=== PATIENT | male | born 1940 | race Caucasian/White ===

== ENCOUNTER 2019-06-19 12:13 | Outpatient (CLI) | payer MEDICARE, SELFPAY ==
--- NOTE | ~2019-06-19 | XR_ITS ---
EXAMINATION: XR chest 2V DATE: 06/19/2019 12:49 INDICATION: Shortness of breath TECHNIQUE: PA and lateral views of the chest are obtained. COMPARISON: 05/08/2019 FINDINGS: The lungs are hyperinflated. There is continued interval improvement in bilateral airspace opacities. There is no pleural effusion or pneumothorax. The cardiomediastinal silhouette is normal. There is moderate thoracic spondylosis. A triple lead cardiac pacemaker of the left chest wall ends w ith leads in expected locations. Surgical clips are noted in the left neck. There is a healed fractur e of the anterior right seventh rib. IMPRESSION: 1. Continued interval improvement in bilateral airspace opacities, consistent with resolving pneumoni a. Reviewed, dictated and finalized at location A. UETTE MOLDER IMPRESSION: 1. Continued interval improvement in bilateral airspace opacities, consistent w ith resolving pneumonia.
== END 2019-06-19 12:14 | disposition home or self-care (01) ==
PROVIDERS: PCP Family Medicine; Visit Provider Nurse Practitioner Family
DX: R06.02 Shortness of breath (principal); R91.8 Other nonspecific abnormal finding of lung field
CPT/HCPCS: 71046

== ENCOUNTER 2020-05-01 22:18 | Inpatient (IN) | payer MEDICARE, SELFPAY ==
--- NOTE | ~2020-05-01 | XR_ITS ---
EXAMINATION: XR knee LT 3V EXAM DATE: 05/01/2020 23:01 INDICATION: Initial encounter following injury, with pain of the left knee. TECHNIQUE: Three projections of the left knee. There is no prior study for comparison. FINDINGS: No evidence osteochondral defect or joint body in the left knee joint. There is mild prim jeevan osteoarthritis. No joint effusion. There are no acute fractures or dislocations identified. Ther e is no subcutaneous gas. There are arterial calcifications, arteriosclerosis. There are no radiop aque foreign bodies. IMPRESSION: 1. XR knee LT 3V exam without acute osseous findings. Reviewed, dictated and finalized at location A. TER TOOL DESIGN
--- NOTE | ~2020-05-01 | XR_ITS ---
EXAMINATION: XR chest 1V EXAM DATE: 05/01/2020 23:00 INDICATION: Injury, right hip and left knee pain. Initial encounter. COPD. TECHNIQUE: Frontal and lateral projections of the chest obtained and reviewed. Comparison is made to prior examination from 06/19/2019. FINDINGS: There is a triple lead lead pacemaker/AICD seen with leads projecting over the expected loc ations of the right atrial appendage and right ventricle. Scattered regions of scarring unchanged com pared to prior study. Moderate chronic hyperinflation. No pneumothorax or pleural effusion. Cardiomed iastinal silhouette is normal. IMPRESSION: 1. Scattered chronic scarring. 2. Hyperinflation. Reviewed, dictated and finalized at location A. S ROUTE DRIVER
--- NOTE | ~2020-05-01 | XR_ITS ---
EXAMINATION: XR hip RT 2V w AP pelvis EXAM DATE: 05/01/2020 22:59 INDICATION: Initial encounter following injury, with pain of the right hip. TECHNIQUE: Right hip frontal, crosstable lateral projections for interpretation. Frontal projection p jose. There is no prior study for comparison. FINDINGS: There is acute closed posttraumatic right hip intertrochanteric fracture with up to about a centimeter gap laterally. No hip dislocation or significant angulation. There is moderate symmetric bilateral hip primary osteoarthritis. Advanced lower lumbar facet spondylosis. Pelvis appears intact. IMPRESSION: Acute right hip intertrochanteric fracture. Reviewed, dictated and finalized at location A. ER POUND NET OR TRAP
[2020-05-01 22:26] VITALS: BP 156/78; PULSE 87; RESP 20; TEMP 36.8; O2SAT 99
--- NOTE | 2020-05-01 22:36 | ED.LOWEXIN ---
HPI - Extremity Injury (Lower) General Chief Complaint: Extremity Injury, Lower Stated Complaint: leg pain after fall Time Seen by Provider: 05/01/20 22:23 History of Present Illness HPI Narrative: 79 yo male presents to the ED after a fall. He reports that he fell after stepping onto uneven ground. He landed on the right side and has pain in the right hip and thigh. He was not able to stand or bear weight after the fall. Pain is only mild at rest. He did not hit his head or sustain any other injuries. Related Data Home Medications Medication Instructions Recorded Confirmed Calcium 600 + D(3) 600 cap PO QAM 04/06/19 04/06/19 acetaminophen [Tylenol Extra 500 mg PO QAM AND QPM 04/06/19 04/06/19 Strength] folic acid 1 mg PO QAM 04/06/19 04/06/19 methotrexate sodium 2.5 mg PO WEEKLY 04/06/19 04/06/19 aspirin 81 mg tablet,delayed 81 mg PO DAILY 04/24/19 release zklzvqqg-fodexgxe-cobpz acid 400 tablet PO 04/24/19 mcg-vit K 20 mcg-lycop 300 mcg tablet Allergies Allergy/AdvReac Type Severity Reaction Status Date / Time propranolol Allergy Unknown Unknown Verified 07/01/19 14:02 Review of Systems Review of Systems: All systems reviewed & are unremarkable except as noted in HPI and below Constitutional: Constitutional: Denies fever(s) and Denies weakness Cardiovascular: Cardiovascular: Denies chest pain Respiratory: Respiratory: Denies dyspnea Gastrointestinal: Gastrointestinal: Denies abdominal pain, Denies nausea and Denies vomiting Neurologic: Denies numbness and Denies weakness [facility] Past Medical History Medical History (Updated 05/01/20 @ 23:12 by Salvador Marcano MD) Abdominal aortic aneurysm Status post repair. Benign essential tremor Benign prostatic hyperplasia Carotid artery disease Status post left carotid endarterectomy in December 2017. Chronic anemia With history of blood transfusion. COPD (chronic obstructive pulmonary disease) PFTs in 2018 demonstrated severe disease. History of DVT of lower extremity Right popliteal DVT diagnosed March 18, 2018. History of kidney stones History of pulmonary embolism Right upper lobe PE diagnosed March 17, 2018. Hyperlipidemia Hypertension Left rib fracture Sustained in a fall several weeks ago. Obstructive sleep apnea Parkinson's disease Pulmonary fibrosis Rheumatoid arthritis On methotrexate. Tobacco abuse Surgical History Surgical History History of cholecystectomy History of left-sided carotid endarterectomy Left side in December 2017. Status cardiac pacemaker Status post abdominal aortic aneurysm repair Family History Family History Mother Family history of heart disease in male family member before age 55 Family history of coronary artery disease, Onset Age: 57 Sibling Patient's brother is Father Patient's father is , Onset Age: 75 Family history unknown Social History Social History Social History: Mr. Waldron is and lives with his , Amena, in [place]. He designates his and son Dagoberto as his surrogate decision makers and he wishes to be a full code. 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 He continues to smoke about 5 cigarettes per day. He denies alcohol and drug abuse. Smoking packs per day: 0.5 Smoking cigarettes per day: 10.0 Years smoked: 60 Smoking pack-years: 30.00 Smoking status: Current every day smoker Tobacco type: cigarettes Alcohol intake: never Substance use: never Gender identity (if verbalized by the patient): Male Spiritual care concerns: No Agree to blood products: Yes Exam Const: General: no acute distress and alert Nutritional Appearance: well nourished Orientation/consciousness: patient oriented x3
[2020-05-01 22:45] LABS: Basophils Absolute Auto 0.1 K/mm3 (0.0-0.1); Basophils Percent Auto 0.5 % (0.2-1.2); Eosinophils Absolute Auto 0.2 K/mm3 (0-0.3); Hemoglobin 14.4 g/dL (14.0-18.0); Immature Granulocyte Absolute 0.06 K/mm3 (0.00-0.031); Immature Granulocyte Percent A 0.5 % (0-0.5); Lymphocytes Absolute Auto 1.33 K/mm3 (0.9-3.2); Mean Corpuscular HGB Conc 33.5 g/dl (32-36); Mean Corpuscular Hemoglobin 32.7 pg (26-34); Mean Corpuscular Volume 97.7 fl (80-100); Monocytes Absolute Auto 0.9 K/mm3 (0.1-0.6); Monocytes Percent Auto 8.4 % (2.6-8.5); Neutrophils Absolute Auto 8.5 K/mm3 (1.3-6.7); Neutrophils Percent Auto 76.6 % (45.5-73.1); Platelet Count Result 225 k/mm3 (150-375); Red Cell Distribution Width 16.6 % (11.5-14.5); White Blood Count 11.1 K/mm3 (4.5-10.0)
[2020-05-01 22:55] LABS: INR 1.1; Prothrombin Time 14.4 Seconds (11.1-14.7)
[2020-05-01 22:56] LABS: Partial Thromboplastin Time 28.1 SECONDS (22.3-36.8)
[2020-05-01 23:02] LABS: Alanine Aminotransferase 17 U/L (4-50); Albumin Level 3.6 g/dL (3.5-5.1); Alkaline Phosphatase 107 U/L (38-126); Anion Gap 8 mmol/L (8-16); Aspartate Amino Transferase 31 U/L (17-59); Bilirubin,Total 0.5 mg/dL (0.2-1.3); Blood Urea Nitrogen 8 mg/dL (9-20); Calcium 8.8 mg/dL (8.4-10.2); Carbon Dioxide 27 mmol/L (22-30); Chloride 103 mmol/L (98-107); Estimated CRCL calculation 83 ml/min; Estimated Glomerular Filt Rate > 60; Glucose 117 mg/dL (75-110); Potassium 4.3 mmol/L (3.4-5.0); Sodium 138 mmol/L (137-145)
--- NOTE | 2020-05-01 23:06 | PM.IMHP ---
H&P: HPI History of Present Illness Date/Time: 05/01/20 23:06 Chief Complaint: Right hip pain, mechanical fall Narrative: Jorge Waldron is a 79 year old male with past medical history of nonischemic cardiomyopathy, biventricular pacemaker, BT/PVCs status post ablation x2, TIA with left carotid artery stenosis status post carotid enterectomy, intrarenal AAA, tobacco abuse, emphysema, hypertension, obstructive sleep apnea on CPAP presents to the ED with complaints of right hip pain. In mechanical fall today when going up staircase. He did not have any syncopal symptoms, no seizures, no headache or lightheadedness, no prodrome, no aura. He did fall couple weeks ago left knee pain with bruise. He otherwise in good health denies fevers chills nausea vomiting or diarrhea. He has a chronic tremor in his left upper extremity. He still smokes half pack per day. He lives with his and a son is nearby to help out with needed. Uses a rolling walker to get around. In the ED: Hip x-rays consistent with right intratrochanteric hip fracture. Dr. Beavers orthopedic surgeon was consulted for likely hip replacement on Sunday. Vitals stable and labs stable. Patient admitted to medical floor for right hip fracture. Review of Systems Review of Systems: Narrative: Constitutional: No Fever, No Chills, No Night Sweats, No Fatigue, No Malaise ENT/Mouth: No Hearing Changes, No Ear Pain, No Nasal Congestion, No Sinus Pain, No Hoarseness, No sore throat, No Rhinorrhea, No Swallowing Difficulty Eyes: No Eye Pain, No Redness, No Vision Changes Cardiovascular: No Chest Pain, No Palpitations, No Dyspnea on Exertion, No Orthopnea, No Claudication, No Edema Respiratory: No Cough, No Sputum, No Wheezing, No Shortness of Breath Gastrointestinal: No Nausea, No Vomiting, No Diarrhea, No Constipation, No Abdominal Pain, No Heartburn, No Hematochezia, No Melena Genitourinary: No Dysuria, No Urinary Frequency, No Hematuria, No Urinary Incontinence, No Urgency Musculoskeletal: Right hip pain without sciatica or radiculopathy. Skin: No Skin Lesions, No Pruritis, No Hair Changes Neuro: No Weakness, No Numbness, No Paresthesias, No Loss of Consciousness, No Syncope, No Dizziness, No Headache Psych: No Anxiety/Panic, No Depression, No Insomnia Heme: No Bruising, No Bleeding Lymph: No Adenopathy Endocrine: No Polyuria, No Polydipsia, No Temperature Intolerance PMF Past Medical History Medical History Abdominal aortic aneurysm Status post repair. Benign essential tremor Benign prostatic hyperplasia Carotid artery disease Status post left carotid endarterectomy in December 2017. Chronic anemia With history of blood transfusion. COPD (chronic obstructive pulmonary disease) PFTs in 2018 demonstrated severe disease. History of DVT of lower extremity Right popliteal DVT diagnosed March 18, 2018. History of kidney stones History of pulmonary embolism Right upper lobe PE diagnosed March 17, 2018. Hyperlipidemia Hypertension Left rib fracture Sustained in a fall several weeks ago. Obstructive sleep apnea Parkinson's disease Pulmonary fibrosis Rheumatoid arthritis On methotrexate. Tobacco abuse Surgical History Surgical History History of cholecystectomy History of left-sided carotid endarterectomy Left side in December 2017. Status cardiac pacemaker Status post abdominal aortic aneurysm repair Family History Family History Mother Family history of heart disease in male family member before age 55 Family history of coronary artery disease, Onset Age: 57 Sibling Patient's brother is Father Patient's father is , Onset Age: 75 Family history unknown Social History Social History (Reviewed 05/01/20 @ 23:50 by José Antonio Schrader
[2020-05-01 23:37] VITALS: BP 142/79; PULSE 89; RESP 16; O2SAT 95
[2020-05-02] VITALS: BP 118/72; PULSE 96; RESP 16; TEMP 36.2; O2SAT 97; BMI 21.7
[2020-05-02] MEDS: MORPHINE SULFATE (*CRX) 4 MG/ML INJ 2 MG IV PUSH (00:49)
[2020-05-02] MEDS: LEVOTHYROXINE SODIUM 25 MCG TABLET PO (05:56)
[2020-05-02 06:00] VITALS: BP 121/84; PULSE 85; RESP 16; TEMP 36.6; O2SAT 94
[2020-05-02] MEDS: ACETAMINOPHEN 500 MG TABLET PO ×2 (09:44→17:14)
[2020-05-02] MEDS: ASPIRIN 81 MG ENTERIC TABLET PO (09:44)
[2020-05-02] MEDS: THERAPEUTIC MULTIVITAMINS/MINERALS TAB (*BKC) 1 TABLET PO (09:45)
[2020-05-02] MEDS: FOLIC ACID 1 MG TABLET PO (09:45)
[2020-05-02] MEDS: FLUTICASONE/SALMETEROL 115-21 MCG INHALER 1 PUFF 2 PUFF INHALATION ×2 (09:57→21:40)
--- NOTE | 2020-05-02 10:00 | PM.CNOR ---
Assessment and Plan Assessment and plan (1) Closed intertrochanteric fracture: Qualifiers: Encounter type: initial encounter Fracture alignment: displaced Laterality: right Qualified Code(s): S72.141A - Displaced intertrochanteric fracture of right femur, initial encounter for closed fracture Code(s): S72.143A - Displaced intertrochanteric fracture of unspecified femur, initial encounter for closed fracture Status: Acute Assessment and Plan: Mildly displaced intertrochanteric fracture. Amenable to ORIF with trochanteric nail. Discussed the risks, benefits, and alternatives with the patient. He expresses understanding and wishes to proceed. Care complicated by multiple medical comorbidities. Significantly increased surgical risk. Anticipate 3-6 weeks retirement/ rehab prior to home discharge. Overall good outcome anticipated. History of Present Illness HPI Consult date: 05/02/20 Chief complaint: hip fracture Narrative: Patient complains of acute hip pain. Fell from standing height. Admitted through the emergency room for definitive managmenet. No previous hip pain. Comfortable at rest. No numbness, tingling, or other associated symptoms. Review of Systems Review of Systems: Narrative: Denies loss of consciousness. All systems reviewed & are unremarkable except as noted in HPI and below PMFSH Past Medical History Medical History Abdominal aortic aneurysm Status post repair. Benign essential tremor Benign prostatic hyperplasia Carotid artery disease Status post left carotid endarterectomy in December 2017. Chronic anemia With history of blood transfusion. COPD (chronic obstructive pulmonary disease) PFTs in 2018 demonstrated severe disease. History of DVT of lower extremity Right popliteal DVT diagnosed March 18, 2018. History of kidney stones History of pulmonary embolism Right upper lobe PE diagnosed March 17, 2018. Hyperlipidemia Left rib fracture Sustained in a fall several weeks ago. Obstructive sleep apnea Parkinson's disease Pulmonary fibrosis Rheumatoid arthritis On methotrexate. Tobacco abuse Surgical History Surgical History History of cholecystectomy History of left-sided carotid endarterectomy Left side in December 2017. Status cardiac pacemaker Status post abdominal aortic aneurysm repair Family History Family History Mother Family history of heart disease in male family member before age 55 Family history of coronary artery disease, Onset Age: 57 Sibling Patient's brother is Father Patient's father is , Onset Age: 75 Family history unknown Social History Social History Social History: Mr. Waldron is and lives with his , Amena, in [place]. He designates his and son Dagoberto as his surrogate decision makers and he wishes to be a full code. 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 He continues to smoke about 5 cigarettes per day. He denies alcohol and drug abuse. Smoking packs per day: 0.5 Smoking cigarettes per day: 10.0 Years smoked: 60 Smoking pack-years: 30.00 Smoking status: Current every day smoker Tobacco type: cigarettes Alcohol intake: never Substance use: never Substance use type: does not use Gender identity (if verbalized by the patient): Male Spiritual care concerns: No Agree to blood products: Yes Meds Home Medications and Allergies Home Medications Medication Instructions Recorded Confirmed Type Calcium 600 + D(3) 600 cap PO QAM 04/06/19 05/02/20 History acetaminophen [Tylenol Extra 500 mg PO QAM AND QPM 04/06/19 05/02/20 History Strength] folic acid 1 mg PO QAM 04/06/19 12
--- NOTE | 2020-05-02 10:16 | PM.IMPN ---
Progress Note: A&P Assessment and Plan (1) Closed intertrochanteric fracture: Qualifiers: Encounter type: initial encounter Fracture alignment: displaced Laterality: right Qualified Code(s): S72.141A - Displaced intertrochanteric fracture of right femur, initial encounter for closed fracture Code(s): S72.143A - Displaced intertrochanteric fracture of unspecified femur, initial encounter for closed fracture Status: Acute Assessment and Plan: Right hip pain with x-ray consistent with right intratrochanteric femur fracture after mechanical fall -Dr. Beavers consulted for surgery which is planned for Sunday -pain is well controlled right now. Continue scheduled Tylenol and p.r.n. narcotics -no sign of blood loss or nerve damage (2) Fall: Qualifiers: Encounter type: initial encounter Qualified Code(s): W19.XXXA - Unspecified fall, initial encounter Code(s): W19.XXXA - Unspecified fall, initial encounter Status: Acute Assessment and Plan: Patient had a mechanical fall on staircase when misplacing his foot. - He denies loss of consciousness or dizziness or syncope or seizure activity or prodrome. -PT and OT will be ordered after surgery (3) COPD (chronic obstructive pulmonary disease): Qualifiers: COPD type: unspecified COPD Qualified Code(s): J44.9 - Chronic obstructive pulmonary disease, unspecified Code(s): J44.9 - Chronic obstructive pulmonary disease, unspecified Status: Acute Assessment and Plan: Chronic -PFTs in the past showed severe disease -chest x-ray stable which showed chronic starting and hyperinflation -continue Spiriva and Advair (4) Rheumatoid arthritis: Qualifiers: Rheumatoid arthritis location: multiple sites Rheumatoid factor presence: unspecified presence Qualified Code(s): M06.9 - Rheumatoid arthritis, unspecified Code(s): M06.9 - Rheumatoid arthritis, unspecified Status: Acute Assessment and Plan: Patient is on methotrexate -will hold this in light of surgery (5) Parkinson's disease: Code(s): G20 - Parkinson's disease Status: Acute Assessment and Plan: Patient states he has been diagnosed with this but denies taking any medications for this Additional Plan -BPH: Flomax -hypothyroidism: Levothyroxine -hyperlipidemia, left-sided carotid disease status post carotid enterectomy: Atorvastatin, aspirin -AAA repair without rupture -tobacco abuse: Half a pack per day, not interested in cessation, provided counseling 5 minutes. -sick sinus syndrome status post biventricular cardiac pacemaker -obstructive sleep apnea on CPAP Time Spent With Patient Time with patient: 25 - 35 minutes Subjective Date/time seen: 05/02/20 10:16 Interval history: Pt is a 79-year-old male who fell walking down his steps and broke his right hip. Patient was seen today and doing relatively well. He has mild pain is 3/10 in the right hip. He denies numbness, tingling, chest pain, fevers, cough, nausea or vomiting. His last bowel movement was yesterday. He has no complaints today Review of Systems Review of Systems: All systems reviewed & are unremarkable except as noted in HPI and below Exam Narrative: Exam Narrative: General: Well developed well nourished patient in NAD HEENT: normocephalic Neck: supple Neuro: Alert and oriented x4 CV:RRR, pacemaker to left chest Resp:CTA, no wheezing or rhonchi Abd: Soft, non distended. No pain to palpation. Positive bowel sounds Extremities: Right leg with pain to the right hip. Pulses, sensation and movement intact. Left leg without erythema, edema or pain Objective Data Vital Signs Vital Signs: Vital Signs - 24 hr 05/01/20 22:26 05/01/20 23:37 05/02/20 00:00 Temperature 98.2 F 97.1 F L Pulse Rate 87 89 96 Respiratory Rate 20 16 16 Blood Pressure 156/78 H 142/79 H 118/72 Pulse Oxim
[2020-05-02 14:00] VITALS: BP 121/62; PULSE 79; RESP 18; TEMP 36.7; O2SAT 95
--- NOTE | 2020-05-02 14:13 | WPDANESEPP ---
Anes - Eval Pre Procedure Date/Time: 05/02/20 14:13 Pre Op Diagnosis: hip fracture Patient Data Age: 79 Gender: M Height: 1.85 m Weight: 74.5 kg Last Vital Signs Temp 36.6 C 05/02/20 06:00 Pulse 85 05/02/20 06:00 Resp 16 05/02/20 06:00 BP 121/84 05/02/20 06:00 Pulse Ox 94 05/02/20 06:00 Allergies Allergy/AdvReac Type Severity Reaction Status Date / Time propranolol Allergy Unknown Unknown Verified 05/02/20 00:25 Home Medications Medication Instructions Recorded Confirmed Type Calcium 600 + D(3) 600 cap PO QAM 04/06/19 05/02/20 History acetaminophen [Tylenol Extra 500 mg PO QAM AND QPM 04/06/19 05/02/20 History Strength] folic acid 1 mg PO QAM 04/06/19 05/02/20 History methotrexate sodium 25 mg PO WEEKLY 04/06/19 05/02/20 History aspirin 81 mg tablet,delayed 81 mg PO DAILY 04/24/19 05/02/20 History release ulygvmjn-zvnggepx-roakn acid 400 1 tablet PO DAILY 04/24/19 05/02/20 History mcg-vit K 20 mcg-lycop 300 mcg tablet tamsulosin 0.4 mg capsule 0.4 mg PO QPM #60 cap 10/27/19 05/02/20 Rx mirtazapine 15 mg tablet 15 mg PO QPM #30 tablet 12/25/19 05/02/20 Rx levothyroxine 25 mcg tablet 25 mcg PO QAM #90 tablet 02/11/20 05/02/20 Rx atorvastatin 10 mg tablet 10 mg PO QPM #90 tablet 04/06/20 05/02/20 Rx fluticasone 250 mcg-salmeterol 50 250 inh INHALATION Q12H #60 each 04/27/20 05/02/20 Rx mcg/dose blistr powdr for inhalation tiotropium bromide 18 mcg capsule 18 mcg INHALATION QAM #30 04/27/20 05/02/20 Rx with inhalation device inhalation Laboratory Tests 05/01/20 05/01/20 05/01/20 22:39 22:39 22:39 WBC 11.1 K/mm3 H K/mm3 (4.5-10.0) RBC 4.40 M/mm3 L M/mm3 (4.6-6.20) Hgb 14.4 g/dL g/dL (14.0-18.0) Hct 43.0 % % (42.0-52.0) MCV 97.7 fl fl (80-100) MCH 32.7 pg pg (26-34) MCHC 33.5 g/dl g/dl (32-36) RDW 16.6 % H % (11.5-14.5) Plt Count 225 k/mm3 k/mm3 (150-375) MPV 9.0 fl fl (7.4-10.4) Immature Gran % (Auto) 0.5 % % (0-0.5) Neut % (Auto) 76.6 % H % (45.5-73.1) Lymph % (Auto) 12.0 % L % (18.3-44.2) Rich % (Auto) 8.4 % % (2.6-8.5) Eos % (Auto) 2.0 % % (0-4.4) Baso % (Auto) 0.5 % % (0.2-1.2) Lymph # (Auto) 1.33 K/mm3 K/mm3 (0.9-3.2) Rich # (Auto) 0.9 K/mm3 H K/mm3 (0.1-0.6) Eos # (Auto) 0.2 K/mm3 K/mm3 (0-0.3) Baso # (Auto) 0.1 K/mm3 K/mm3 (0.0-0.1) Abs Immat Gran (auto) 0.06 K/mm3 H K/mm3 (0.00-0.031) Absolute Neuts (auto) 8.5 K/mm3 H K/mm3 (1.3-6.7) Absolute Nucleated RBC 0.0 K/mm3 K/mm3 (0.0-0.012) Nucleated RBC % 0.0 % % (0.0-0.2) PT 14.4 Seconds Seconds (11.1-14.7) INR 1.1 APTT 28.1 SECONDS SECONDS (22.3-36.8) Sodium 138 mmol/L mmol/L (137-145) Potassium 4.3 mmol/L mmol/L (3.4-5.0) Chloride 103 mmol/L mmol/L (98-107) Carbon Dioxide 27 mmol/L mmol/L (22-30) Anion Gap 8 mmol/L mmol/L (8-16) BUN 8 mg/dL L D mg/dL (9-20) Creatinine 0.70 mg/dL mg/dL (0.7-1.3) Estim Creat Clear Calc 83 ml/min ml/min Estimated GFR > 60 (59 - ) Glucose 117 mg/dL H mg/dL (75-110) Calcium 8.8 mg/dL mg/dL (8.4-10.2) Total Bilirubin 0.5 mg/dL mg/dL (0.2-1.3) AST 31 U/L U/L (17-59) ALT 17 U/L U/L (4-50) Alkaline Phosphatase 107 U/L U/L (38-126) Total Protein 7.0 g/dL g/dL (6.3-8.2) Albumin 3.6 g/dL g/dL (3.5-5.1) Patient hx anesthesia problems: none Family hx anesthesia problems: none [facility] Past Medical History Medical History Abdominal aortic aneurysm Status post repair. Benign essential tremor Benign prostatic hyperplasi
[2020-05-02 16:00] VITALS: PULSE 72
[2020-05-02] MEDS: TAMSULOSIN HCL 0.4 MG CAPSULE PO (17:14)
[2020-05-02] MEDS: ATORVASTATIN 10 MG TABLET PO (17:15)
[2020-05-02] MEDS: MIRTAZAPINE 15 MG TABLET PO (17:15)
[2020-05-02 20:00] VITALS: PULSE 74
[2020-05-02 21:22] VITALS: BP 127/56; PULSE 72; RESP 16; TEMP 37.1; O2SAT 94
[2020-05-03] VITALS: PULSE 80
[2020-05-03 04:00] VITALS: PULSE 86
[2020-05-03 05:39] VITALS: BP 119/60; PULSE 84; RESP 16; TEMP 37.1; O2SAT 94
[2020-05-03] MEDS: LEVOTHYROXINE SODIUM 25 MCG TABLET PO (06:04)
[2020-05-03 06:13] LABS: Basophils Percent Auto 0.3 % (0.2-1.2); Eosinophils Absolute Auto 0.2 K/mm3 (0-0.3); Eosinophils Percent Auto 1.2 % (0-4.4); Hematocrit 35.8 % (42.0-52.0); Hemoglobin 12.1 g/dL (14.0-18.0); Immature Granulocyte Absolute 0.08 K/mm3 (0.00-0.031); Immature Granulocyte Percent A 0.6 % (0-0.5); Lymphocytes Absolute Auto 1.81 K/mm3 (0.9-3.2); Lymphocytes Percent Auto 14.2 % (18.3-44.2); Mean Corpuscular HGB Conc 33.8 g/dl (32-36); Mean Corpuscular Hemoglobin 32.2 pg (26-34); Mean Corpuscular Volume 95.2 fl (80-100); Mean Platelet Volume 9.2 fl (7.4-10.4); Monocytes Absolute Auto 1.2 K/mm3 (0.1-0.6); Monocytes Percent Auto 9.2 % (2.6-8.5); Neutrophils Absolute Auto 9.5 K/mm3 (1.3-6.7); Neutrophils Percent Auto 74.5 % (45.5-73.1); Platelet Count Result 204 k/mm3 (150-375); Red Blood Count 3.76 M/mm3 (4.6-6.20); Red Cell Distribution Width 16.3 % (11.5-14.5); White Blood Count 12.7 K/mm3 (4.5-10.0)
[2020-05-03 06:21] LABS: Anion Gap 5 mmol/L (8-16); Blood Urea Nitrogen 9 mg/dL (9-20); Calcium 8.1 mg/dL (8.4-10.2); Carbon Dioxide 27 mmol/L (22-30); Chloride 102 mmol/L (98-107); Estimated CRCL calculation 91 ml/min; Estimated Glomerular Filt Rate > 60; Glucose 101 mg/dL (75-110); Potassium 3.9 mmol/L (3.4-5.0); Sodium 134 mmol/L (137-145)
[2020-05-03 08:30] VITALS: PULSE 82
--- NOTE | 2020-05-03 09:44 | PC.NURSE ---
Received call from patient's son Dagoberto. Patient's son received a call from the patient's putaway driver, Dr. Serrano, stating he needs to have his pacemaker battery changed as soon as possible as it is at the end of it's battery life. The son informed Dr. Serrano that patient is scheduled to have a hip repair later today. Dr. Serrano requested that Dr. Beavers be notified of his concerns and be asked to call him as soon as possible. Called Dr. Beavers's office and relayed message and provided them with Dr. Serrano's phone number - [phone]. They will have Dr. Beavers contact Dr. Serrano immediately.
--- NOTE | 2020-05-03 10:11 | PM.IMPN ---
Progress Note: A&P Assessment and Plan (1) Pacemaker at end of battery life: Code(s): Z45.010 - Encounter for checking and testing of cardiac pacemaker pulse generator [battery] Status: Acute Assessment and Plan: As stated above, pt planned to have a procedure today at [facility] to replace the battery and/or leads -Per Dr. Barber ([phone]) he needs to be transferred to [facility] for this before his hip sx -I have spoken to cardiology about this here at [facility] and we are unable to perform this procedure -I have called [facility] transfer line to facilitate the transfer with Dr. Pierre hospitalist -Continue close monitoring on tele -Interrogate pace maker, cardiology to review -No CP or bradycardia (2) Closed intertrochanteric fracture: Qualifiers: Encounter type: initial encounter Fracture alignment: displaced Laterality: right Qualified Code(s): S72.141A - Displaced intertrochanteric fracture of right femur, initial encounter for closed fracture Code(s): S72.143A - Displaced intertrochanteric fracture of unspecified femur, initial encounter for closed fracture Status: Acute Assessment and Plan: Right hip pain with x-ray consistent with right intratrochanteric femur fracture after mechanical fall -Dr. Beavers consulted for surgery but now plan for transfer as stated above -pain is well controlled right now. Continue scheduled Tylenol and p.r.n. narcotics -no sign of blood loss or nerve damage (3) Fall: Qualifiers: Encounter type: initial encounter Qualified Code(s): W19.XXXA - Unspecified fall, initial encounter Code(s): W19.XXXA - Unspecified fall, initial encounter Status: Acute Assessment and Plan: Patient had a mechanical fall on staircase when misplacing his foot. - He denies loss of consciousness or dizziness or syncope or seizure activity or prodrome. -PT and OT will be ordered after surgery (4) COPD (chronic obstructive pulmonary disease): Qualifiers: COPD type: unspecified COPD Qualified Code(s): J44.9 - Chronic obstructive pulmonary disease, unspecified Code(s): J44.9 - Chronic obstructive pulmonary disease, unspecified Status: Acute Assessment and Plan: Chronic -PFTs in the past showed severe disease -chest x-ray stable which showed chronic starting and hyperinflation -continue Spiriva and Advair (5) Rheumatoid arthritis: Qualifiers: Rheumatoid arthritis location: multiple sites Rheumatoid factor presence: unspecified presence Qualified Code(s): M06.9 - Rheumatoid arthritis, unspecified Code(s): M06.9 - Rheumatoid arthritis, unspecified Status: Acute Assessment and Plan: Patient is on methotrexate -will hold this in light of surgery (6) Parkinson's disease: Code(s): G20 - Parkinson's disease Status: Acute Assessment and Plan: Patient states he has been diagnosed with this but denies taking any medications for this Additional Plan -BPH: Flomax -hypothyroidism: Levothyroxine -hyperlipidemia, left-sided carotid disease status post carotid enterectomy: Atorvastatin, aspirin -AAA repair without rupture -tobacco abuse: Half a pack per day, not interested in cessation, provided counseling 5 minutes. -sick sinus syndrome status post biventricular cardiac pacemaker -obstructive sleep apnea on CPAP Subjective Date/time seen: 05/03/20 10:11 Interval history: Pt is a 79-year-old male who fell walking down his steps and broke his right hip. Patient was seen today and doing relatively well. He has no right hip. He denies numbness, tingling, chest pain, fevers, cough, nausea or vomiting. His last bowel movement was yesterday. He has no complaints today. Spoke with Dr. Beavers and Maryam Jean cardiology about pacemaker issue. Pt has a pacemaker with an HAZEL warning in february with issues with the ventricular lead. He sees
[2020-05-03] MEDS: ACETAMINOPHEN 500 MG TABLET PO (10:20)
[2020-05-03] MEDS: FLUTICASONE/SALMETEROL 115-21 MCG INHALER 1 PUFF 2 PUFF INHALATION (10:26)
[2020-05-03 12:00] VITALS: PULSE 82
--- NOTE | 2020-05-03 13:04 | PM.TDS ---
Transfer Discharge Sum: Prov Provider Date of admission: 05/01/20 23:06 Primary care physician: Panda Guevara MD Admitting clinician: Yasir Cadena DO Consults: 05/01/20 23:08 Consult to Physician Routine Comment: Consulting Provider: Yung Beavers Reason for consultation: Hip fracture Has provider been notified: Yes DS: Admitting Diagnosis Admitting Diagnosis Admitting Diagnosis: Right hip fracture DS: Discharge Diagnosis Discharge Diagnosis (1) Pacemaker at end of battery life: Code(s): Z45.010 - Encounter for checking and testing of cardiac pacemaker pulse generator [battery] Status: Acute Assessment and Plan: As stated above, pt planned to have a procedure today at [facility] to replace the battery and/or leads -Per Dr. Barber ([phone]) he needs to be transferred to [facility] for this before his hip sx -I have spoken to cardiology about this here at [facility] and we are unable to perform this procedure -I have called [facility] transfer line to facilitate the transfer with Dr. Pierre hospitalist -patient had been monitored on telemetry at his stay. Pacemaker was interrogated with no significant issues -no bradycardia noted (2) Closed intertrochanteric fracture: Qualifiers: Encounter type: initial encounter Fracture alignment: displaced Laterality: right Qualified Code(s): S72.141A - Displaced intertrochanteric fracture of right femur, initial encounter for closed fracture Code(s): S72.143A - Displaced intertrochanteric fracture of unspecified femur, initial encounter for closed fracture Status: Acute Assessment and Plan: Right hip pain with x-ray consistent with right intratrochanteric femur fracture after mechanical fall -Dr. Beavers consulted for surgery but now plan for transfer as stated above -pain is well controlled right now. Continue scheduled Tylenol and p.r.n. narcotics -no sign of blood loss or nerve damage (3) Fall: Qualifiers: Encounter type: initial encounter Qualified Code(s): W19.XXXA - Unspecified fall, initial encounter Code(s): W19.XXXA - Unspecified fall, initial encounter Status: Acute Assessment and Plan: Patient had a mechanical fall on staircase when misplacing his foot. - He denies loss of consciousness or dizziness or syncope or seizure activity or prodrome. -PT and OT will be ordered after surgery (4) COPD (chronic obstructive pulmonary disease): Qualifiers: COPD type: unspecified COPD Qualified Code(s): J44.9 - Chronic obstructive pulmonary disease, unspecified Code(s): J44.9 - Chronic obstructive pulmonary disease, unspecified Status: Acute Assessment and Plan: Chronic -PFTs in the past showed severe disease -chest x-ray stable which showed chronic starting and hyperinflation -continue Spiriva and Advair (5) Rheumatoid arthritis: Qualifiers: Rheumatoid arthritis location: multiple sites Rheumatoid factor presence: unspecified presence Qualified Code(s): M06.9 - Rheumatoid arthritis, unspecified Code(s): M06.9 - Rheumatoid arthritis, unspecified Status: Acute Assessment and Plan: Patient is on methotrexate -will hold this in light of surgery (6) Parkinson's disease: Code(s): G20 - Parkinson's disease Status: Acute Assessment and Plan: Patient states he has been diagnosed with this but denies taking any medications for this Transfer Discharge Sum: Med Medications Active and Home Medications: Home Medications Calcium 600 + D(3) 600 cap PO QAM 04/06/19 [History Confirmed 05/02/20] acetaminophen [Tylenol Extra Strength] 500 mg PO QAM AND QPM 04/06/19 [History Confirmed 05/02/20] folic acid 1 mg PO QAM 04/06/19 [History Confirmed 05/02/20] methotrexate sodium 25 mg PO WEEKLY 04/06/19 [History Confirmed 05/02/20] aspirin 81 mg tablet,delayed release 81 mg P
--- NOTE | 2020-05-03 13:05 | PC.NURSE ---
Pacemaker rep here and checked pacemaker. Maryam Jean MEDICAL ASSISTANT SECRETARY here for cardiology and discussed findings with rep. Patient approved for ambulance transfer. Report given to Bethanie LEACH at labor operator - [facility] in [facility]. Patient sent via ambulance to [facility] Spoke with patient's son Dagoberto Waldron and notifying him also.
== END 2020-05-03 13:05 | disposition short-term general hospital (02) | DRG 536 ==
LOC: ANHED 23:15 → ANH2MED 23:30
PROVIDERS: Admitting Provider Student in an Organized Health Care Education/Training Program; Emergency Provider Emergency Medicine; PCP Family Medicine; Visit Provider Physician Assistant
DX: S72.141A Displaced intertrochanteric fracture of right femur, initial encounter for closed fracture (principal); I42.8 Other cardiomyopathies; I49.5 Sick sinus syndrome; Z45.010 Encounter for checking and testing of cardiac pacemaker pulse generator [battery]; W10.9XXA Fall (on) (from) unspecified stairs and steps, initial encounter; J43.9 Emphysema, unspecified; M06.9 Rheumatoid arthritis, unspecified; G20 Parkinson's disease; J84.10 Pulmonary fibrosis, unspecified; F17.210 Nicotine dependence, cigarettes, uncomplicated; D72.829 Elevated white blood cell count, unspecified; N40.0 Benign prostatic hyperplasia without lower urinary tract symptoms; E03.9 Hypothyroidism, unspecified; E78.5 Hyperlipidemia, unspecified; G25.0 Essential tremor; I10 Essential (primary) hypertension; G47.33 Obstructive sleep apnea (adult) (pediatric); Z79.82 Long term (current) use of aspirin; Z79.899 Other long term (current) drug therapy; Z86.711 Personal history of pulmonary embolism; Z86.718 Personal history of other venous thrombosis and embolism; Z86.73 Personal history of transient ischemic attack (TIA), and cerebral infarction without residual deficits; Z86.79 Personal history of other diseases of the circulatory system; Z88.8 Allergy status to other drugs, medicaments and biological substances; Z98.890 Other specified postprocedural states
CPT/HCPCS: 36415; 71045; 73502; 73562; 80048; 80053; 85025; 85610; 85730; 99285; A9270; J2270

== ENCOUNTER 2020-11-15 17:41 | Outpatient (CLI) | payer MEDICARE, SELFPAY ==
--- NOTE | ~2020-11-15 | XR_ITS ---
XR ribs BI 3V w CXR 2V DATE: 11/15/2020 18:14 INDICATION: Right lower rib pain. Shortness of breath. Cough. TECHNIQUE: PA and lateral views of the chest. Multiple views of left and right ribs. COMPARISON: 05/01/2020 portable AP chest 03/24/2019 CT lung screening FINDINGS: Bilateral hyperinflation with relative flattening of the diaphragm, consistent with COPD. Mild blunting of the left costophrenic angle may be chronic or may represent minimal left pleural eff usion. Normal heart size. Left-sided transvenous pacemaker device with leads overlying right atrium, right v entricle and coronary sinus. Aortic arch calcification. There is discoid scarring in the left mid to lower lung and mild chronic left apical capping. No pulm onary infiltrate or consolidation, pulmonary vascular congestion or pneumothorax is detected. Surgical clips overlie the left cervical area. There is diffuse osteopenia. Probable old healed left mid clavicular shaft fracture. There is osteoarthritis of the glenohumeral j oints and degenerative change at the acromioclavicular joints. There is evidence of some old left rib fractures. No recent left or right rib fracture is detected. Surgical clips, right upper quadrant, consistent with cholecystectomy. IMPRESSION: No recent rib fracture is evident; old left clavicular shaft and old left rib healed rib fractures COPD Left lung scarring Triple lead left-sided cardiac pacemaker device Aortic atherosclerosis Reviewed, dictated and finalized at location B. IMPRESSION: No recent rib fracture is evident; old left clavicular shaft and ol d left rib healed rib fractures COPD Left lung scarring Triple lead left-sided cardiac pacemaker device Aortic atherosclerosis
== END 2020-11-15 17:42 | disposition home or self-care (01) ==
LOC: ANHIMG 17:44
PROVIDERS: PCP Family Medicine; Visit Provider Nurse Practitioner Family
DX: R07.9 Chest pain, unspecified (principal); R05 Cough; J44.9 Chronic obstructive pulmonary disease, unspecified; I70.0 Atherosclerosis of aorta; Z95.0 Presence of cardiac pacemaker
CPT/HCPCS: 71046; 71110

== ENCOUNTER → 2021-02-01 13:27 | Outpatient (REF) | payer MEDICARE, SELFPAY | LOC: ANHLAB 13:27 | PROVIDERS: PCP Family Medicine; Visit Provider Nurse Practitioner | DX: C44.319 Basal cell carcinoma of skin of other parts of face (principal) | CPT/HCPCS: 88305 ==

== ENCOUNTER → 2021-04-04 08:00 | Outpatient (REF) | payer MEDICARE, SELFPAY | LOC: ANHLAB 08:00 | PROVIDERS: PCP Family Medicine; Visit Provider Nurse Practitioner | DX: C44.319 Basal cell carcinoma of skin of other parts of face (principal) | CPT/HCPCS: 88305; 88331 ==

== ENCOUNTER 2021-05-05 13:03 | Emergency (ER) | payer MEDICARE, SELFPAY ==
--- NOTE | ~2021-05-05 | CT_ITS ---
EXAMINATION: CT diagnostic chest wo con DATE: 05/05/2021 21:14 INDICATION: Lung mass TECHNIQUE: Computed tomography (CT) of the chest was performed without intravenous contrast. The dose -length product (DLP) was 248.39 mGy-cm. Automated exposure control and iterative reconstruction tech Saluspot were employed. COMPARISON: 03/24/2019 FINDINGS: There is severe emphysema. A 1.6 x 1.2 cm nodule is present at the periphery of the left up per lobe on image 29. There is a stable 5 mm nodule of the left upper lobe. There is no pleural effus ion or pneumothorax. A dual-lead pacemaker of the left chest wall ends with its leads in expected pos ition. No pathologically enlarged thoracic lymph nodes are identified. The heart size is normal. Calc ified coronary artery atherosclerosis is noted. Cysts of the visualized liver measure up to 1.5 cm. IMPRESSION: 1. Left upper lobe nodule concerning for primary bronchogenic carcinoma. Further evaluation with biop sy or PET/CT is recommended. 2. Severe emphysema. Reviewed, dictated and finalized at location F. WARE PRODUCT SPECIALIST IMPRESSION: 1. Left upper lobe nodule concerning for primary bronchogenic carcinoma. Furthe r evaluation with biopsy or PET/CT is recommended. 2. Severe emphysema.
--- NOTE | ~2021-05-05 | XR_ITS ---
EXAMINATION: XR chest 1V portable INDICATION: Left upper extremity weakness TECHNIQUE: Portable AP chest at 1827 hours COMPARISON: 11/15/2020 FINDINGS: There is severe emphysema. Chronic atelectasis and scarring is noted in the midlung zones. No acute opacities are identified. There is no pleural effusion or pneumothorax. A triple lead cardia c pacemaker of the left chest wall ends with leads in expected locations. IMPRESSION: 1. No acute cardiopulmonary abnormality. Reviewed, dictated and finalized at location F. OFF SAW OPERATOR PIPE BLANKS
--- NOTE | ~2021-05-05 | CT_ITS ---
EXAMINATION: CTA brain carotid DATE: 05/05/2021 19:38 INDICATION: Weakness of the left upper extremity TECHNIQUE: Computed tomographic angiography (CTA) of the head was performed without and with 100 mL O mnipaque-350 intravenous contrast. CTA of the neck was performed with intravenous contrast. The dose- length product was 1888.53 mGy-cm. Maximum intensity projection and volume rendered 3D-reconstruction s were created by the technologist on a separate workstation. Automated exposure control and iterativ e reconstruction technique were employed. COMPARISON: None. FINDINGS: HEAD CTA: There is no acute intraparenchymal hemorrhage. No evidence of mass lesion. No evidence of a cute infarction. There are old lacunar infarct involving the left caudate nucleus and left basal gang crystal. There is mild periventricular and subcortical hypodensity probably related to small vessel ische blaire disease. There is mild prominence of the sulci and ventricles related to cerebral atrophy. Intrac ranial calcified cerebral atherosclerosis is noted. There are no extra-axial collections. There is no mass effect or midline shift. The orbits and soft tissues are unremarkable. There is mild mucosal th ickening of the paranasal sinuses. There is no significant stenosis of the basilar artery or posterior cerebral arteries. There is no si gnificant stenosis of the intracranial internal carotid arteries or the anterior or middle cerebral a rteries. The anterior communicating artery and posterior communicating arteries are normal. There is no aneurysm. NECK CTA: The thyroid gland is unremarkable. The submandibular and parotid glands are symmetric. Ther e is no lymphadenopathy. There is a partially imaged pleural-based opacity of the left lung apex. Sev ere emphysema is noted. Debris is noted in the airway. The superior mediastinum is unremarkable. There is 0% stenosis of the proximal right internal carotid artery relative to normal distal artery l umen diameter (NASCET criteria). There is 0% stenosis of the proximal left internal carotid artery re lative to normal distal artery lumen diameter. IMPRESSION: 1. No acute intracranial abnormality. Normal head CTA. 2. 0% stenosis of the proximal right internal carotid artery relative to normal distal artery lumen d iameter (NASCET criteria). 3. 0% stenosis of the proximal left internal carotid artery relative to normal distal artery lumen di ameter. 4. Indeterminate pleural-based opacity of the left lung apex. Dedicated CT of the chest is recommende d. Reviewed, dictated and finalized at location F. ING CONSULTANT IMPRESSION: 1. No acute intracranial abnormality. Normal head CTA. 2. 0% stenosis of the proximal right internal carotid artery relative to normal distal artery lumen diameter (NASCET criteria). 3. 0% stenosis of the proximal left internal carotid artery relative to normal distal artery lumen diameter. 4. Indeterminate pleural-based opacity of the left lung apex. Dedicated CT of t he chest is recommended.
[2021-05-05 13:19] VITALS: BP 126/66; PULSE 60; RESP 18; TEMP 36.2; O2SAT 100
[2021-05-05 15:19] VITALS: BP 132/60; PULSE 61; RESP 16; TEMP 36.4; O2SAT 95
[2021-05-05 17:42] VITALS: BP 153/59; PULSE 59; RESP 12; O2SAT 96
--- NOTE | 2021-05-05 18:02 | ED.WEAKNESS ---
HPI - Weakness General Chief complaint: Weakness Stated complaint: left hand weakness Time Seen by Provider: 05/05/21 18:00 Source: patient Mode of arrival: ambulatory Limitations: no limitations History of Present Illness HPI Narrative: Patient is 80 years old white male presented to the ED complaining of weakness of the left wrist and left forearm started 1 week ago. Patient denies any other focal neuro deficit. Patient denies numbness, tingling, weakness anywhere else except the left forearm. Patient is vaccinated for COVID 1 time, 1 month ago Related Data Home Medications Medication Instructions Recorded Confirmed Calcium 600 + D(3) 600 cap PO QAM 04/06/19 11/15/20 acetaminophen [Tylenol Extra 500 mg PO QAM AND QPM 04/06/19 11/15/20 Strength] folic acid 1 mg PO QAM 04/06/19 11/15/20 methotrexate sodium 25 mg PO WEEKLY 04/06/19 11/15/20 aspirin 81 mg tablet,delayed 81 mg PO DAILY 04/24/19 11/15/20 release kwfrdznm-fawwbotp-ldxwe acid 400 1 tablet PO DAILY 04/24/19 11/15/20 mcg-vit K 20 mcg-lycop 300 mcg tablet Allergies Allergy/AdvReac Type Severity Reaction Status Date / Time No Known Allergies Allergy Verified 04/04/21 07:43 Review of Systems Review of Systems: CONSTITUTIONAL: Denies fever, chills, or sweats. EYES: Denies visual changes, redness, or discharge. ENT: Denies rhinorrhea, congestion, sore throat, or otalgia. CARDIOVASCULAR: Denies chest pain, palpitations, or edema. RESPIRATORY: Denies cough or dyspnea. GASTROINTESTINAL: Denies abdominal pain, nausea, vomiting, or diarrhea. GENITOURINARY: Denies dysuria or hematuria. SKIN: Denies rash or itching. MUSCULOSKELETAL: Denies back pain, joint pain, or myalgia. NEUROLOGIC: Denies headache, numbness, or weakness. PSYCHIATRIC: Denies anxiety or depression. [facility] Past Medical History Medical History Abdominal aortic aneurysm Status post repair. Benign essential tremor Benign prostatic hyperplasia BMI 21.0-21.9, adult Carotid artery disease Status post left carotid endarterectomy in December 2017. Chronic anemia With history of blood transfusion. COPD (chronic obstructive pulmonary disease) PFTs in 2018 demonstrated severe disease. History of DVT of lower extremity Right popliteal DVT diagnosed March 18, 2018. History of kidney stones History of pulmonary embolism Right upper lobe PE diagnosed March 17, 2018. Hyperlipidemia Left rib fracture Sustained in a fall several weeks ago. Obstructive sleep apnea Parkinson's disease Pulmonary fibrosis Rheumatoid arthritis On methotrexate. Skin lesion of face Tobacco abuse Surgical History Surgical History History of cholecystectomy History of left-sided carotid endarterectomy Left side in December 2017. Status cardiac pacemaker Status post abdominal aortic aneurysm repair Family History Family History Mother Family history of heart disease in male family member before age 55 Family history of coronary artery disease, Onset Age: 57 Sibling Patient's brother is Father Patient's father is , Onset Age: 75 Family history unknown Social History Social History Social History: Mr. Waldron is and lives with his , Amena, in [place]. He designates his and son Dagoberto as his surrogate decision makers and he wishes to be a full code. 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 He continues to smoke about 5 cigarettes per day. He denies alcohol and drug abuse. Smoking packs per day: 0.5 Smoking cigarettes per day: 10.0 Years smoked: 60 Smoking pack-years: 30.00 Smoking status: Current every day smoker Tobacco type: cigarettes Second hand tobacco smoke exposure: No Alcohol intake:
--- NOTE | 2021-05-05 18:06 | ECG_ITS ---
Measurements Intervals [place] Rate: 60 P: 107 IA: 140 QRS: -67 QRSD: 163 T: 85 QT: 504 QTc: 504 Interpretive Statements ELECTRONIC ATRIAL PACEMAKER ELECTRONIC VENTRICULAR PACEMAKER NO FURTHER INTERPRETATION IS POSSIBLE ATYPICAL ECG Electronically Signed On 05-05-2021 18:46:42 PERMIT AGENT by Yazan Meadows D.O.
[2021-05-05 18:51] LABS: Basophils Absolute Auto 0.1 K/mm3 (0.0-0.1); Basophils Percent Auto 0.6 % (0.2-1.2); Eosinophils Absolute Auto 0.3 K/mm3 (0-0.3); Eosinophils Percent Auto 2.2 % (0-4.4); Hematocrit 46.3 % (42.0-52.0); Hemoglobin 15.8 g/dL (14.0-18.0); Immature Granulocyte Absolute 0.04 K/mm3 (0.00-0.031); Immature Granulocyte Percent A 0.4 % (0-0.5); Lymphocytes Absolute Auto 2.57 K/mm3 (0.9-3.2); Lymphocytes Percent Auto 22.9 % (18.3-44.2); Mean Corpuscular HGB Conc 34.1 g/dl (32-36); Mean Corpuscular Hemoglobin 31.9 pg (26-34); Mean Corpuscular Volume 93.3 fl (80-100); Mean Platelet Volume 8.9 fl (7.4-10.4); Monocytes Absolute Auto 0.7 K/mm3 (0.1-0.6); Monocytes Percent Auto 5.8 % (2.6-8.5); Neutrophils Absolute Auto 7.6 K/mm3 (1.3-6.7); Neutrophils Percent Auto 68.1 % (45.5-73.1); Platelet Count Result 241 k/mm3 (150-375); Red Blood Count 4.96 M/mm3 (4.6-6.20); Red Cell Distribution Width 16.8 % (11.5-14.5); White Blood Count 11.2 K/mm3 (4.5-10.0)
--- NOTE | 2021-05-05 19:00 | PC.NURSE ---
Assuming care of pt.
[2021-05-05 19:01] LABS: INR 1.2; Partial Thromboplastin Time 31.9 SECONDS (22.3-36.8); Prothrombin Time 14.7 Seconds (11.1-14.7)
[2021-05-05 19:09] LABS: Alanine Aminotransferase 64 U/L (4-50); Albumin Level 4.1 g/dL (3.5-5.1); Alkaline Phosphatase 115 U/L (38-126); Anion Gap 11 mmol/L (8-16); Aspartate Amino Transferase 67 U/L (17-59); Bilirubin,Total 0.7 mg/dL (0.2-1.3); Blood Urea Nitrogen 8 mg/dL (9-20); CRP 2.2 mg/dL (<1.0); Calcium 8.8 mg/dL (8.4-10.2); Carbon Dioxide 24 mmol/L (22-30); Chloride 100 mmol/L (98-107); Estimated CRCL calculation 79 ml/min; Estimated Glomerular Filt Rate > 60; Glucose 99 mg/dL (65-110); Potassium 3.8 mmol/L (3.4-5.0); Sodium 135 mmol/L (137-145)
[2021-05-05 19:18] LABS: Troponin I 0.026 ng/mL (0.000-0.034)
[2021-05-05 19:30] VITALS: BP 157/67; PULSE 60; RESP 18; O2SAT 95
[2021-05-05 20:30] VITALS: BP 162/68; PULSE 60; RESP 18; O2SAT 95
[2021-05-05 20:42] LABS: Erythrocyte Sedimentation Rate 16 mm/hr (0-20)
[2021-05-05 23:04] VITALS: BP 163/64; PULSE 66; RESP 16; O2SAT 95
== END 2021-05-05 23:05 | disposition home or self-care (01) ==
PROVIDERS: Emergency Provider Emergency Medicine; PCP Family Medicine
DX: M21.332 Wrist drop, left wrist (principal); R91.1 Solitary pulmonary nodule; N40.0 Benign prostatic hyperplasia without lower urinary tract symptoms; I25.10 Atherosclerotic heart disease of native coronary artery without angina pectoris; D64.9 Anemia, unspecified; J44.9 Chronic obstructive pulmonary disease, unspecified; E78.5 Hyperlipidemia, unspecified; Z87.442 Personal history of urinary calculi; G47.33 Obstructive sleep apnea (adult) (pediatric); G20 Parkinson's disease; J84.10 Pulmonary fibrosis, unspecified; M06.9 Rheumatoid arthritis, unspecified; F17.210 Nicotine dependence, cigarettes, uncomplicated; Z95.0 Presence of cardiac pacemaker; Z86.718 Personal history of other venous thrombosis and embolism; Z86.711 Personal history of pulmonary embolism; Z79.82 Long term (current) use of aspirin
CPT/HCPCS: 36415; 70496; 70498; 71045; 71250; 80053; 84484; 85025; 85610; 85652; 85730; 86140; 93005; 99284; Q9967

== ENCOUNTER 2021-05-19 08:59 | Outpatient (CLI) | payer MEDICARE, SELFPAY ==
[2021-05-11 14:50] VITALS: BMI 24.4
--- NOTE | 2021-05-11 15:22 | PC.NURSE ---
Addendum entered by Ingris Stafford RN 05/11/21 15:26: [id number], CATHERINE, IS GETTING COVID VACCINATION RECORD FROM [facility]. PT DOES NOT HAVE A COVID CARD. HE NOW RESIDES IN AN ASSISTED LIVING WITH HIS . CATHERINE'S, ENRIQUE, PHONE #-[phone]. Original Note: Report to the Outpatient Waiting Room, entrance under the green pavilion located off [facility], at time _0900 on date _05/19/21 . OR Time: __1100 . - You and your visitor will be asked a series of questions to screen for COVID 19 for your protection. - A mask is required within the hospital. - Only one visitor is allowed at this time. Patient visitors will be guided where to wait when not with patient. Preoperative COVID Testing Requirements: No COVID Test needed if: (proof is required; if not received patient will have Rapid Test prior to entry) - Patient has received COVID Vaccine at least 14 days prior to procedure date or - Patient has positive COVID test result within last 90 days of surgery date. COVID Test needed if above criteria is not met If not COVID vaccinated a COVID test must be conducted within 72 hours of surgery and patient is asked to isolate self from time of testing until procedure. You will go to the [facility] for your COVID testing. The [facility] is located at the corner of [address] [facility]. You will only be called if COVID results are positive and your surgeon may reschedule your elective surgery date. Patients may have clear liquids (water, carbonated beverages, clear teas, apple juice) until 3 hours prior to surgery with a maximum of 20 ounces. - No food from midnight until time of surgery - Infants may have breast milk until 4 hours before surgery, infant formula 6 hours prior to surgery. - Children will be allowed to drink immediately following surgery. If applicable, please bring a bottle or sippy cup to assist with drinking. Juice, water, soda, and popsicles are readily available. For infants on formula, please bring formula the day of surgery. Pacifiers are allowed. Take the following medications with a SIP of water the morning of surgery: _ACETAMINOPHEN NEEDED, TRELEGY ELLIPTA INHALER, AND LEVOTHYROXINE Medications to discontinue per physician ASPIRIN X 1 WEEK Date to take last dose____05/11/21 Please no make-up, nail slov[place], hairspray, perfume, deodorant, or body powder the day of surgery. No jewelry (including any body piercings) or valuables the day of surgery, leave them at home. Please take a shower or bath the night before, or the morning of, surgery with an antibacterial soap. Wear comfortable, loose fitting clothing. Children are encouraged to wear pajamas. - Jewelry must be removed prior to entering the operating room. Rings and piercings that are not removed may be cut off. - The hospital will not accept responsibility for valuables. - Please leave all valuables, including medications, at home the day of surgery. If you are going home after surgery, a licensed service parts driver must drive you home. - NO public transportation without another adult. - We recommend that an adult stay with you for 24 hours following discharge. - We also recommend that you do not drive, make important decision, drink alcoholic beverages, or take any drugs that were not prescribed by your health care provider for at least 24 hours after your discharge time. For Pediatric surgeries, we recommend two adults accompany the child home (only one inside the building at this time). Follow any additional instructions given to you from your surgeon. Telephone instructions given to _[id number]___ias asked if any additional questions and then verbalized understanding. Patient advised to call surgeon office or pre surgery nurse liaison [phone] if any additional questions.
[2021-05-19] VITALS (9 sets, daily range): BP systolic 133–154; BP diastolic 60–66; PULSE 60–71; RESP 16–18; O2SAT 94–99
--- NOTE | ~2021-05-19 | XR_ITS ---
EXAMINATION: XR chest 1V portable DATE: 05/19/2021 12:49 INDICATION: Status post percutaneous biopsy of a left upper lobe nodule TECHNIQUE: frontal view of the chest was obtained. COMPARISON: Chest radiograph dated 05/19/2021 at 11:49 AM FINDINGS: No new airspace opacities, pneumothorax or pleural effusion. Again seen is severe emphysema with scat tered atelectasis/scarring in both lungs. The cardiomediastinal silhouette is normal. Three lead pace maker which obscures the region of the biopsied nodule. The lead tips project over the expected locat ions of the right atrial appendage, apex of the right ventricle and overlying the left ventricle havi ng traversed the coronary sinus. Surgical clips at the left neck. IMPRESSION: 1. No pneumothorax or other acute cardiopulmonary disease post tracheostomy with biopsy of a left upp er lobe nodule. 2. Severe emphysema with chronic scattered atelectasis/scarring. Reviewed, dictated and finalized at location A. HOUSE KILN OPERATOR IMPRESSION: 1. No pneumothorax or other acute cardiopulmonary disease post tracheostomy wit h biopsy of a left upper lobe nodule. 2. Severe emphysema with chronic scattered atelectasis/scarring.
--- NOTE | ~2021-05-19 | CT_ITS ---
EXAMINATION: CT biopsy lung w/imaging DATE: 05/19/2021 12:10 INDICATION: Left upper lobe nodule concerning for primary bronchogenic carcinoma. TECHNIQUE: The procedure including the risks and benefits was discussed with the patient. Risks discu ssed included infection, approximately 1/20 risk of symptomatic hemorrhage beyond mild hemoptysis, ap proximately 1/3 risk of pneumothorax, and approximately 1/10 risk of pneumothorax severe enough to wa rrant chest tube placement. The patient understood the risks and agreed to proceed. The patient was p laced supine. The skin overlying the left axilla was prepped and draped in sterile fashion. Anesthe tic was administered with 1% lidocaine subcutaneously. A 19 gauge outer needle was advanced under CT guidance to the lesion of interest. A 20 gauge core biopsy needle was then used to obtain 4 core bio psy specimens. The needle was removed and the entry site was cleaned and dressed. There were no imme diate complications. The dose-length product was 452.94 mGy-cm. FINDINGS: CT images demonstrate the outer needle tip at the periphery of a a 2.0 x 1.4 cm left upper lobe nodule and the biopsy needle extending across the nodule. Severe emphysema. IMPRESSION: 1. Successful CT-guided biopsy of a 2.0 x 1.4 cm left upper lobe nodule. Reviewed, dictated and finalized at location A. OR QUALITY ASSURANCE ANALYST
--- NOTE | ~2021-05-19 | XR_ITS ---
EXAMINATION: XR chest 1V DATE: 05/19/2021 11:52 INDICATION: Status post left lung biopsy TECHNIQUE: frontal view of the chest was obtained. COMPARISON: Chest radiograph and CT dated 05/05/2021 FINDINGS: Again seen is hyperexpansion of the lungs with scattered regions of increased lucency and architectur al distortion consistent with severe emphysema. Unchanged pattern of linear and streaky opacities in the right mid and lower lung zone and more prominently in the left mid to upper lung zone likely rela johana to atelectasis/scarring. Chronic blunting at the left costophrenic angle. No pleural effusion or pneumothorax. The biopsied nodule at the lateral left upper lung zone is obscured by a 3 lead pacemak er with leads projecting over the expected locations of the right atrial appendage, apex of the right ventricle and overlying the left ventricle having traversed the coronary sinus. The cardiomediastina l silhouette is normal. IMPRESSION: 1. No pneumothorax or pleural effusion post biopsy of and indeterminate left upper lobe nodule. 2. Severe emphysema with stable appearance of bilateral scattered atelectasis/scarring. Reviewed, dictated and finalized at location A. E GROUP MANAGER IMPRESSION: 1. No pneumothorax or pleural effusion post biopsy of and indeterminate left up per lobe nodule. 2. Severe emphysema with stable appearance of bilateral scattered atelectasis/s carring.
--- NOTE | ~2021-05-19 | XR_ITS ---
EXAMINATION: XR chest 1V portable DATE: 05/19/2021 14:59 INDICATION: Post image guided lung biopsy of a left upper lobe nodule TECHNIQUE: frontal view of the chest was obtained. COMPARISON: Chest radiograph dated 05/19/2021 FINDINGS: Stable appearance of emphysema with scattered bilateral linear atelectasis/scarring. The biopsied nod ule is seen at the lateral aspect of the left upper lung zone. Chronic pleural parenchymal scarring a t the left lung base. No pleural effusion or pneumothorax. The cardiomediastinal silhouette is normal . Three lead pacemaker seen with leads projecting over the expected locations of the right atrial laura endage, apex of the right ventricle and overlying the left ventricle having traversed the coronary si nus. Surgical clips at the left neck. IMPRESSION: 1. No pneumothorax or other acute cardiopulmonary disease post percutaneous biopsy of a left upper lo be nodule. 2. Severe emphysema with chronic scattered atelectasis/scarring. Reviewed, dictated and finalized at location A. L INSTALLER IMPRESSION: 1. No pneumothorax or other acute cardiopulmonary disease post percutaneous bio psy of a left upper lobe nodule. 2. Severe emphysema with chronic scattered atelectasis/scarring.
[2021-05-19 09:40] LABS: Mean Platelet Volume 9.2 fl (7.4-10.4); Platelet Count Result 182 k/mm3 (150-375)
[2021-05-19 09:46] LABS: Glucose Point of Care 103 mg/dl (65-105)
[2021-05-19 09:52] LABS: INR 1.1; Prothrombin Time 14.4 Seconds (11.1-14.7)
[2021-05-19 12:36] LABS: Glucose Point of Care 100 mg/dl (65-105)
--- NOTE | 2021-05-19 12:43 | SUR.PHASEII ---
xr called for portable cxr
--- NOTE | 2021-05-19 15:31 | SUR.PHASEII ---
DR MONTESINOS TO SEE PT. CHENCHO TO D/C HOME.
== END 2021-05-19 15:58 | disposition home or self-care (01) ==
PROVIDERS: PCP Family Medicine; Visit Provider Radiology Diagnostic Radiology
PROC: BB24ZZZ Computerized Tomography (CT Scan) of Bilateral Lungs (ICD-10-PCS; CPT 32408; principal; 2021-05-19 11:00)
DX: Z01.818 Encounter for other preprocedural examination (principal); C34.90 Malignant neoplasm of unspecified part of unspecified bronchus or lung; J43.9 Emphysema, unspecified; Z51.81 Encounter for therapeutic drug level monitoring; Z79.899 Other long term (current) drug therapy
CPT/HCPCS: 32408; 36415; 71045; 82948; 85049; 85610; 88305; 88312

== ENCOUNTER 2021-05-25 10:58 | Outpatient (CLI) | payer MEDICARE, SELFPAY ==
[2021-05-28 11:58] LABS: ANA Cascade Screen Negative (Negative)
== END 2021-05-25 10:59 | disposition home or self-care (01) ==
PROVIDERS: PCP Family Medicine; Visit Provider Internal Medicine Pulmonary Disease
DX: R91.8 Other nonspecific abnormal finding of lung field (principal); J84.9 Interstitial pulmonary disease, unspecified
CPT/HCPCS: 36415; 86038

== ENCOUNTER 2022-07-02 17:35 | Inpatient (IN) | payer MEDICARE, SELFPAY ==
[2022-07-02] VITALS (12 sets, daily range): BP systolic 99–118; BP diastolic 54–64; PULSE 88–134; RESP 20–25; TEMP 36.3–38.7; O2SAT 89–99; BMI 22.4
--- NOTE | ~2022-07-02 | CT_ITS ---
EXAMINATION: CTA chest PE protocol DATE: 07/02/2022 19:49 INDICATION: hypoxia,history of PE TECHNIQUE: Computed tomography angiography (CTA) of the chest was performed with 100 mL Omnipaque-350 intravenous contrast timed to evaluate the pulmonary arteries. Coronal maximum intensity projection 3D-reconstructions were created by the technologist. The dose-length product (DLP) was 522.50 mGy-cm. Automated exposure control and iterative reconstruction technique were employed. COMPARISON: X-ray chest, same date. CT chest 05/05/2021. FINDINGS: Lung parenchyma and airways: Severe emphysematous change. Left upper lobe nodule, previously biopsied . Stable nodular appearing scarring in the left medial lung base. Right lower lobe consolidation. [place] in the prior radiograph in the left lung represent chronic lung changes Fluid in several lower lobe bronchi. Pleura: Small volume right pleural fluid collection. Thoracic inlet, axillae and chest wall: Right chest pacer. Surgical clips in the left lower neck. Thoracic aorta: Moderate ectasia and arch calcification. Mediastinum: Right hilar and borderline mediastinal lymphadenopathy. Heart and pericardium: Cardiomegaly. Coronary artery calcifications: Moderate. Upper abdomen: No significant finding. Bones: No acute osseous finding. Pulmonary arteries: Study quality: Mild motion artifact in the lower lobes, overall diagnostic. No pu lmonary emboli detected. IMPRESSION: No CT evidence of acute pulmonary embolus. Right lower lobe pneumonia. Small right pleural effusion. Right hilar lymphadenopathy. Reviewed, dictated and finalized at location K. OPERATOR IMPRESSION: No CT evidence of acute pulmonary embolus. Right lower lobe pneumonia. Small ri ght pleural effusion. Right hilar lymphadenopathy.
--- NOTE | ~2022-07-02 | CT_ITS ---
EXAMINATION: CT brain wo con DATE: 07/02/2022 19:48 INDICATION: CONFUSION . TECHNIQUE: Computed tomography (CT) of the head was performed without intravenous contrast. The mA wa s adjusted according to patient size. Iterative reconstruction technique was employed. The dose-lengt h product was 681.00 mGy-cm. COMPARISON: 04/15/2018. FINDINGS: No acute intracranial hemorrhage or extra-axial fluid collection. No hydrocephalus, mass, or herniation. No acute ischemic infarct. Unremarkable dural venous sinus attenuation. No acute osseous abnormality. Poorly pneumatized right sphenoid sinus, with an air-fluid level and surrounding sclerotic bone, the remaining aerated spaces are clear. Moderate atrophy and chronic white matter change. Atherosclerotic intracranial calcification. Chronic left basal ganglia lacunar infarct. IMPRESSION: No acute intracranial process. Chronic sphenoid sinusitis. Reviewed, dictated and finalized at location K. EMNATION ENGINEER
--- NOTE | ~2022-07-02 | XR_ITS ---
EXAMINATION: XR chest 1V portable Exam Date/Time: 07/02/2022 18:40 OPERATOR RECEPTIONIST HISTORY: sob, hypoxia Comparison: 05/19/2021. RESULT: Lines, tubes, and devices: Left chest pacer with intact leads. Lungs and pleura: Ill-defined groundglass and consolidative opacities in the left midlung and bilate ral medial lower lungs overlying severe emphysematous and senescent change, with mid and lower lung s carring. Chronic minimal left lateral pleural blunting. Stable left upper lung peripheral nodule. Cardiomediastinal silhouette: Stable. Other: No acute osseous or upper abdominal finding. IMPRESSION: Bilateral pulmonary opacities may represent edema, atelectasis, or infection. Small left pleural effu alexei versus chronic pleural parenchymal scarring. Reviewed, dictated and finalized at location K. ATOR RECEPTIONIST IMPRESSION: Bilateral pulmonary opacities may represent edema, atelectasis, or infection. S mall left pleural effusion versus chronic pleural parenchymal scarring.
--- NOTE | 2022-07-02 17:44 | ECG_ITS ---
Measurements Intervals Nursery Rate: 131 P: 77 WI: 146 QRS: 40 QRSD: 138 T: -39 QT: 359 QTc: 531 Interpretive Statements POSSIBLE ATRIAL FLUTTER WITH RAPID VENTRICULAR RESPONSE BASELINE ARTIFACT RIGHT BUNDLE BRANCH BLOCK MARKED ST DEPRESSION, CONSIDER SUBENDOCARDIAL INJURY ABNORMAL ECG COMPARED TO ECG 05/05/2021 18:36:47 ATRIAL AND VENTRICULAR PACING IS NO LONGER APPRECIATED Electronically Signed On 07-03-2022 14:04:50 CLASS A TRUCK DRIVER by Bryan Hooks M.D.
--- NOTE | 2022-07-02 17:48 | ED.AMS ---
HPI - Altered Mental Status General Chief Complaint: Altered Mental Status Stated Complaint: low BP, RA pul ox Time Seen by Provider: 07/02/22 17:38 Source: patient, EMS, RN notes reviewed and old records reviewed Mode of arrival: EMS Limitations: altered mental status and clinical condition History of Present Illness HPI narrative: THis is an 81 year old male with history of afib who presents for evaluation of low blood pressure. EMS states patient reports he has had decrease PO intake for 2 days and he has been altered. Patient was found to have low oxygen saturation on their arrival with oxygen saturation in the 80%. Patient was placed on NRB and then given neb treatment. Patient is currently 88% on 4 L NC. He was also found to have low blood pressure on their arrival so they started NS bolus enroute. His blood pressure has improved on arrival. He was also found to have fever. Patient denies chest pain or abdominal pain. Related Data Home Medications Medication Instructions Recorded Confirmed acetaminophen 500 mg tablet 500 mg PO QAM AND QPM 04/06/19 07/02/22 (Tylenol Extra Strength) methotrexate sodium 2.5 mg tablet 20 mg PO WEEKLY 04/06/19 07/02/22 aspirin 81 mg tablet,delayed 81 mg PO DAILY 04/24/19 07/02/22 release (Ecotrin Low Strength) vhpgduyh-mxrzbiwc-iryee acid 400 1 tablet PO DAILY 04/24/19 07/02/22 mcg-vit K 20 mcg-lycop 300 mcg tablet (One-A-Day Men's Multivitamin) Allergies Allergy/AdvReac Type Severity Reaction Status Date / Time No Known Allergies Allergy Verified 05/29/22 09:37 Review of Systems Review of Systems: ROS unobtainable: Yes unobtainable due to mental status [facility] Past Medical History Medical History (Updated 07/04/22 @ 03:41 by Tianna Valencia MD) Abdominal aortic aneurysm Status post repair. BCC (basal cell carcinoma), chest Benign essential tremor Benign prostatic hyperplasia BMI 21.0-21.9, adult Carotid artery disease Status post left carotid endarterectomy in December 2017. Carotid stenosis, left Chronic anemia With history of blood transfusion. COPD (chronic obstructive pulmonary disease) PFTs in 2018 demonstrated severe disease. Essential tremor History of DVT of lower extremity Right popliteal DVT diagnosed March 18, 2018. History of kidney stones History of pulmonary embolism Right upper lobe PE diagnosed March 17, 2018. Hyperlipidemia Left rib fracture Sustained in a fall several weeks ago. Mass of lung Obstructive sleep apnea Parkinson's disease Pulmonary fibrosis Rheumatoid arthritis On methotrexate. Skin lesion of face Tobacco abuse Surgical History Surgical History History of cholecystectomy History of left-sided carotid endarterectomy Left side in December 2017. Status cardiac pacemaker Status post abdominal aortic aneurysm repair Family History Family History Mother Family history of heart disease in male family member before age 55 Family history of coronary artery disease, Onset Age: 57 Sibling Patient's brother is Father Patient's father is , Onset Age: 75 Family history unknown Social History Social History Social History: Mr. Waldron is and lives with his , Amena, in [place]. He designates his and son Dagoberto as his surrogate decision makers and he wishes to be a full code. 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 He continues to smoke about 5 cigarettes per day. He denies alcohol and drug abuse. Smoking packs per day: 0.5 Smoking cigarettes per day: 10.0 Years smoked: 60 Smoking pack-years: 30.00 Smoking status: Current every day smoker Tobacco type: cigarettes Second hand tobacco smoke exposure: No Additional smoking assessment comments:
[2022-07-02 18:01] LABS: Alveolar/Arterial O2 Gradient 172.5 mmHg; Base Excess ABG -1.8 mEq/l (+/-2.0); Fractional Inspired Oxygen 36 %; HCO3 ABG 20.7 mEq/l (22.0-26.0); Oxygen Content ABG 17.9 %vol (16.0-22.0); Oxygen Saturation ABG 88.2 % (95.0-100.0); PCO2 ABG 29.4 mmHg (35.0-45.0); PO2 ABG 50.1 mmHg (80.0-100.0); PO2 FiO2 Ratio Arterial Blood 1.39 %; Total Hemoglobin 14.7 g/dL (12.0-18.0); pH ABG 7.465 (7.350-7.450)
[2022-07-02 18:03] LABS: Device NASAL CANNULA; Modified Allen's Test Pass; Oxyhemoglobin 86.6 % THb (90.0-100.0); Site Drawn LEFT RADIAL
[2022-07-02 18:06] LABS: Glucose Point of Care 121 mg/dl (65-105)
[2022-07-02 18:15] LABS: Basophils Absolute Auto 0.1 K/mm3 (0.0-0.1); Basophils Percent Auto 0.4 % (0.2-1.2); Hematocrit 44.5 % (42.0-52.0); Hemoglobin 14.6 g/dL (14.0-18.0); Immature Granulocyte Absolute 0.17 K/mm3 (0.00-0.031); Immature Granulocyte Percent A 0.6 % (0-0.5); Lymphocytes Absolute Auto 0.41 K/mm3 (0.9-3.2); Lymphocytes Percent Auto 1.4 % (18.3-44.2); Mean Corpuscular HGB Conc 32.8 g/dl (32-36); Mean Corpuscular Hemoglobin 32.7 pg (26-34); Mean Corpuscular Volume 99.6 fl (80-100); Mean Platelet Volume 9.4 fl (7.4-10.4); Monocytes Percent Auto 3.4 % (2.6-8.5); Neutrophils Absolute Auto 26.7 K/mm3 (1.3-6.7); Neutrophils Percent Auto 94.2 % (45.5-73.1); Nucleated Red Blood Cells Perc 0.1 % (0.0-0.2); Platelet Count Result 156 k/mm3 (150-375); Red Blood Count 4.47 M/mm3 (4.6-6.20); Red Cell Distribution Width 16.1 % (11.5-14.5); White Blood Count 28.3 K/mm3 (4.5-10.0)
[2022-07-02] MEDS: SODIUM CHLORIDE 0.9% IV 500 ML 999 ML IV CONT (18:18)
[2022-07-02 18:25] LABS: INR 1.3; Prothrombin Time 15.9 Seconds (11.1-14.7)
[2022-07-02 18:26] LABS: Partial Thromboplastin Time 29.3 SECONDS (22.3-36.8)
[2022-07-02 18:31] LABS: Alanine Aminotransferase 18 U/L (6-50); Albumin Level 3.2 g/dL (3.5-5.1); Alkaline Phosphatase 113 U/L (38-126); Anion Gap 9 mmol/L (8-16); Aspartate Amino Transferase 29 U/L (17-59); Bilirubin,Total 0.9 mg/dL (0.2-1.3); Blood Urea Nitrogen 5 mg/dL (9-20); Calcium 8.1 mg/dL (8.4-10.2); Carbon Dioxide 21 mmol/L (22-30); Chloride 101 mmol/L (98-107); Estimated CRCL calculation 76 ml/min; Estimated Glomerular Filt Rate > 60; Glucose 120 mg/dL (65-110); Potassium 3.9 mmol/L (3.4-5.0); Sodium 131 mmol/L (137-145)
[2022-07-02 18:36] LABS: Ovalocytes 1+ (NORMAL); Platelet Estimate Adequate (Adequate); Schistocytes None Seen (NORMAL)
[2022-07-02 18:42] LABS: NT Pro B Type Natriuretic Pept 1190 pg/mL (19.9-100)
[2022-07-02 18:46] LABS: Lactic Acid Reflex 4.9 mmol/L (0.7-2.0)
[2022-07-02 18:53] LABS: Influenza A QL RT-PCR Negative (Negative); Influenza B QL RT-PCR Negative (Negative); SARS-CoV-2 RNA PCR Negative
[2022-07-02 18:54] LABS: Appearance Urine Clear (Clear); Bilirubin Urine Negative (Negative); Blood Urine Negative (Negative); Color Urine Yellow (Yellow); Glucose Urine UA Negative (Negative); Ketones Urine Negative (Negative); Leukocyte Esterase Ur Negative LEU/UL (Negative); Nitrate Urine Negative (Negative); Protein Urine 1+ mg/dL (Negative); Specific Grav Ur 1.015 (1.001-1.035); Urobilinogen Urine 0.2 mg/dL (<2.0)
[2022-07-02] MEDS: SODIUM CHLORIDE 0.9% IV 1,000 ML 999 ML IV CONT (18:58)
[2022-07-02] MEDS: CEFEPIME 2 GM/NS 50 ML 2 GM/50 ML BAG IVPB (18:58)
[2022-07-02 19:01] LABS: Mucus Urine Rare /lpf; RBC Urine 0-2 /hpf (0-2); Squamous Epithelial Cell Urine Rare /hpf (Few); WBC Urine 0-3 /hpf
[2022-07-02 19:15] LABS: Add Urine Microscopic? YES
--- NOTE | 2022-07-02 19:28 | PC.NURSE ---
Assumed care of pt, report from Sarai/Slade LEACH. Pt A&Ox3, resting on stretcher, to imaging at this time.
--- NOTE | 2022-07-02 21:13 | PM.IMHP ---
H&P: HPI History of Present Illness Date/Time: 07/02/22 21:13 Chief Complaint: Altered mental status Narrative: This is an 81-year-old male with past medical history significant for bronchogenic carcinoma, rheumatoid arthritis, hypothyroidism, benign prostatic hyperplasia, COPD/emphysema, Parkinson's disease, pulmonary fibrosis. Former tobacco user. Patient comes to the emergency room due to altered mental status he can not give a reliable history he is not sure why he is in the hospital. Patient was found to have low oxygen saturation has been placed on nasal cannula, preliminary workup was significant for lactic acid of 4.9, WBC count 28,[address] of the chest showed right lower lobe pneumonia. Patient is been admitted for further evaluation management and treatment. CTA chest FINDINGS:? Lung parenchyma and airways: Severe emphysematous change. Left upper lobe nodule, previously biopsied. Stable nodular appearing scarring in the left medial lung base. Right lower lobe consolidation. Opacities in the prior radiograph in the left lung represent chronic lung changes Fluid in several lower lobe bronchi. Pleura: Small volume right pleural fluid collection. Thoracic inlet, axillae and chest wall: Right chest pacer. Surgical clips in the left lower neck. Thoracic aorta: Moderate ectasia and arch calcification. Mediastinum: Right hilar and borderline mediastinal lymphadenopathy. Heart and pericardium: Cardiomegaly. Coronary artery calcifications: Moderate. Upper abdomen: No significant finding. Bones: No acute osseous finding. Pulmonary arteries: Study quality: Mild motion artifact in the lower lobes, overall diagnostic. No pulmonary emboli detected. IMPRESSION: No CT evidence of acute pulmonary embolus. Right lower lobe pneumonia. Small right pleural effusion. Right hilar lymphadenopathy. CT of the head FINDINGS: No acute intracranial hemorrhage or extra-axial fluid collection. No hydrocephalus, mass, or herniation. No acute ischemic infarct. Unremarkable dural venous sinus attenuation. No acute osseous abnormality. Poorly pneumatized right sphenoid sinus, with an air-fluid level and surrounding sclerotic bone, the remaining aerated spaces are clear. Moderate atrophy and chronic white matter change. Atherosclerotic intracranial calcification. Chronic left basal ganglia lacunar infarct. IMPRESSION:? No acute intracranial process. Chronic sphenoid sinusitis. Review of Systems Review of Systems: ROS unobtainable: Yes unobtainable due to mental status (Confusion) [facility] Past Medical History Medical History (Updated 07/03/22 @ 01:23 by Chalo Faulkner MD) Abdominal aortic aneurysm Status post repair. BCC (basal cell carcinoma), chest Benign essential tremor Benign prostatic hyperplasia BMI 21.0-21.9, adult Carotid artery disease Status post left carotid endarterectomy in December 2017. Carotid stenosis, left Chronic anemia With history of blood transfusion. COPD (chronic obstructive pulmonary disease) PFTs in 2018 demonstrated severe disease. Essential tremor History of DVT of lower extremity Right popliteal DVT diagnosed March 18, 2018. History of kidney stones History of pulmonary embolism Right upper lobe PE diagnosed March 17, 2018. Hyperlipidemia Left rib fracture Sustained in a fall several weeks ago. Mass of lung Obstructive sleep apnea Parkinson's disease Pulmonary fibrosis Rheumatoid arthritis On methotrexate. Skin lesion of face Tobacco abuse Surgical History Surgical History History of cholecystectomy History of left-sided carotid endarterectomy Left side in December 2017. Status cardiac pacemaker Status post abdominal aortic aneurysm repair Family History Family History Mother Family history of heart disease in male family member before age 55 Family hi
[2022-07-02 21:19] LABS: Reflex Lactic Acid Yes or No Add Lactic
[2022-07-02 23:25] LABS: Lactic Acid 1.7 mmol/L (0.7-2.0)
[2022-07-03] VITALS (23 sets, daily range): BP systolic 93–131; BP diastolic 45–74; PULSE 65–94; RESP 16–22; TEMP 36.1–36.7; O2SAT 94–99
--- NOTE | 2022-07-03 | PC.NURSE ---
This patient, Jorge Waldron, was admitted to IMU Room 205-01. Patient/family oriented to hospital policies and general routines including ID bracelet, bed and alarms, visiting hours, pain management, procedures, bathroom and other care routines, personal items, smoking policy, room service/diet, and visiting hours. Information on how to activate the Rapid Response Team has been discussed. Patient/Family are encouraged to report perceived risks to care and to ask questions if they do not understand what they are told or what they should do.
[2022-07-03 00:07] LABS: Glucose Point of Care 128 mg/dl (65-105)
[2022-07-03] MEDS: ALBUTEROL SULFATE NEB 2.5 MG/3 ML INH INHALATION ×4 (02:35→20:00)
[2022-07-03] MEDS: IPRATROPIUM BR 0.02% INH SOLN 0.5 MG/2.5 ML VIAL INHALATION ×4 (02:35→20:00)
[2022-07-03] MEDS: CEFEPIME 2 GM/NS 50 ML 2 GM/50 ML BAG IVPB ×3 (03:52→18:18)
[2022-07-03 04:47] LABS: Basophils Absolute Auto 0.1 K/mm3 (0.0-0.1); Basophils Percent Auto 0.2 % (0.2-1.2); Hemoglobin 13.5 g/dL (14.0-18.0); Immature Granulocyte Absolute 0.22 K/mm3 (0.00-0.031); Immature Granulocyte Percent A 0.8 % (0-0.5); Lymphocytes Absolute Auto 1.36 K/mm3 (0.9-3.2); Lymphocytes Percent Auto 4.7 % (18.3-44.2); Mean Corpuscular HGB Conc 33.8 g/dl (32-36); Mean Corpuscular Hemoglobin 32.3 pg (26-34); Mean Corpuscular Volume 95.7 fl (80-100); Mean Platelet Volume 9.2 fl (7.4-10.4); Monocytes Absolute Auto 1.3 K/mm3 (0.1-0.6); Monocytes Percent Auto 4.3 % (2.6-8.5); Platelet Count Result 132 k/mm3 (150-375); Red Blood Count 4.18 M/mm3 (4.6-6.20); Red Cell Distribution Width 16.2 % (11.5-14.5); White Blood Count 28.9 K/mm3 (4.5-10.0)
[2022-07-03 05:01] LABS: Alanine Aminotransferase 15 U/L (6-50); Albumin Level 2.7 g/dL (3.5-5.1); Alkaline Phosphatase 86 U/L (38-126); Anion Gap 4 mmol/L (8-16); Aspartate Amino Transferase 29 U/L (17-59); Bilirubin,Total 0.9 mg/dL (0.2-1.3); Blood Urea Nitrogen 7 mg/dL (9-20); Calcium 7.6 mg/dL (8.4-10.2); Carbon Dioxide 23 mmol/L (22-30); Chloride 103 mmol/L (98-107); Estimated CRCL calculation 89 ml/min; Estimated Glomerular Filt Rate > 60; Glucose 116 mg/dL (65-110); Potassium 3.8 mmol/L (3.4-5.0); Sodium 130 mmol/L (137-145)
[2022-07-03 05:11] LABS: Schistocytes None Seen (NORMAL)
[2022-07-03 05:12] LABS: Anisocytosis 1+ (NORMAL)
[2022-07-03] MEDS: LEVOTHYROXINE SODIUM 25 MCG TABLET PO (06:47)
[2022-07-03] MEDS: UMECLIDINIUM/VILANTEROL 62.5-25 MCG ELLIPTA 1 PUFF INHALATION (07:52)
[2022-07-03] MEDS: ASPIRIN 81 MG ENTERIC TABLET PO (10:05)
[2022-07-03] MEDS: ACETAMINOPHEN 500 MG TABLET PO ×2 (10:05→20:19)
--- NOTE | 2022-07-03 15:48 | PM.IMPN ---
Progress Note: A&P Assessment and Plan (1) Right lower lobe pneumonia: Code(s): J18.9 - Pneumonia, unspecified organism Status: Acute Assessment and Plan: Vancomycin, cefepime, azithromycin, trend (2) Chronic anemia: Code(s): D64.9 - Anemia, unspecified Status: Acute Assessment and Plan: Stable, monitor (3) Essential tremor: Code(s): G25.0 - Essential tremor Status: Acute Assessment and Plan: Stable (4) Mixed hyperlipidemia: Code(s): E78.2 - Mixed hyperlipidemia Status: Acute (5) Abdominal aortic aneurysm (AAA) without rupture: Code(s): I71.40 - Abdominal aortic aneurysm, without rupture, unspecified Status: Acute Assessment and Plan: Would avoid Levaquin/fluoroquinolones (6) Pulmonary fibrosis: Code(s): J84.10 - Pulmonary fibrosis, unspecified Status: Acute (7) COPD (chronic obstructive pulmonary disease): Qualifiers: COPD type: unspecified COPD Qualified Code(s): J44.9 - Chronic obstructive pulmonary disease, unspecified Code(s): J44.9 - Chronic obstructive pulmonary disease, unspecified Status: Acute Assessment and Plan: Severe per PFTs in the past (8) Tobacco dependence: Code(s): F17.200 - Nicotine dependence, unspecified, uncomplicated Status: Acute (9) Rheumatoid arthritis: Qualifiers: Rheumatoid arthritis location: multiple sites Rheumatoid factor presence: unspecified presence Qualified Code(s): M06.9 - Rheumatoid arthritis, unspecified Code(s): M06.9 - Rheumatoid arthritis, unspecified Status: Acute Assessment and Plan: Methotrexate on hold while having antibiotics for pneumonia (10) Bronchogenic carcinoma: Code(s): C34.90 - Malignant neoplasm of unspecified part of unspecified bronchus or lung Status: Acute (11) Heart failure of unknown type: Code(s): I50.9 - Heart failure, unspecified Status: Acute Assessment and Plan: Echo from August 2021 showed an EF of 65% with diastolic heart failure, mild pulmonary hypertension and moderate aortic valve regurgitation Plan DVT prophylaxis with SCDs GI prophylaxis not indicated Code status full code Subjective Date/time seen: 07/03/22 15:48 Interval history: No overnight events noted. No chest pain or shortness of breath. No nausea, vomiting or diarrhea. No fevers or chills. States he feels significantly better than when he came in. Review of Systems Review of Systems: 12 point review of systems was assessed and was negative except as noted in the HPI Exam Narrative: General: No acute distress, alert and oriented per baseline HEENT: Atraumatic, normocephalic, mucous membranes moist CV: Regular rate and rhythm, S1, S2 Lungs: Diminished throughout, no wheeze, scattered coarse breath sounds noted Abdomen: Soft, nontender, nondistended Extremities: Normal to inspection Skin: No rashes noted, no lesions or wounds seen Psych: Euthymic, normal affect Objective Data Vital Signs Vital Signs: Vital Signs - 24 hr 07/02/22 17:37 07/02/22 17:49 07/02/22 17:54 Temperature 101.7 F H Pulse Rate 134 H 129 H Respiratory Rate 25 H Blood Pressure 99/60 L Pulse Oximetry 90 89 L Oxygen Delivery Non-Rebreather Mask Nasal Cannula Oxygen Flow Rate 10 4 07/02/22 18:40 07/02/22 19:27 07/02/22 19:58 Temperature 101.4 F H Pulse Rate 112 H 98 Respiratory Rate 23 H 25 H Blood Pressure 102/58 L 118/64 Pulse Oximetry 99 96 Oxygen Delivery Oxygen Flow Rate 07/02/22 20:46 07/02/22 21:10 07/02/22 22:11 Temperature 98.4 F Pulse Rate 100 93 Respiratory Rate 23 H 25 H Blood Pressure 116/59 L 105/64 Pulse Oximetry 97 97 Oxygen Delivery Oxygen Flow Rate 07/02/22 23:23 07/02/22 23:33 07/02/22 23:39 Temperature 97.4 F L Pulse Rate 88 92 96 Respiratory R
[2022-07-03] MEDS: ATORVASTATIN 10 MG TABLET PO (18:27)
[2022-07-03] MEDS: MIRTAZAPINE 15 MG TABLET PO (18:27)
[2022-07-03] MEDS: TAMSULOSIN HCL 0.4 MG CAPSULE PO (18:27)
[2022-07-04] VITALS (23 sets, daily range): BP systolic 120–140; BP diastolic 49–74; PULSE 63–103; RESP 16–24; TEMP 36.3–36.7; O2SAT 90–97
[2022-07-04] MEDS: CEFEPIME 2 GM/NS 50 ML 2 GM/50 ML BAG IVPB (02:28)
[2022-07-04 06:31] LABS: Basophils Percent Auto 0.2 % (0.2-1.2); Eosinophils Absolute Auto 0.1 K/mm3 (0-0.3); Eosinophils Percent Auto 0.5 % (0-4.4); Hematocrit 37.2 % (42.0-52.0); Hemoglobin 12.4 g/dL (14.0-18.0); Immature Granulocyte Absolute 0.15 K/mm3 (0.00-0.031); Immature Granulocyte Percent A 0.8 % (0-0.5); Lymphocytes Absolute Auto 1.11 K/mm3 (0.9-3.2); Lymphocytes Percent Auto 5.7 % (18.3-44.2); Mean Corpuscular HGB Conc 33.3 g/dl (32-36); Mean Corpuscular Hemoglobin 32.6 pg (26-34); Mean Corpuscular Volume 97.9 fl (80-100); Mean Platelet Volume 9.4 fl (7.4-10.4); Monocytes Absolute Auto 0.7 K/mm3 (0.1-0.6); Monocytes Percent Auto 3.6 % (2.6-8.5); Neutrophils Absolute Auto 17.3 K/mm3 (1.3-6.7); Neutrophils Percent Auto 89.2 % (45.5-73.1); Platelet Count Result 133 k/mm3 (150-375); Red Cell Distribution Width 15.9 % (11.5-14.5); White Blood Count 19.3 K/mm3 (4.5-10.0)
[2022-07-04] MEDS: LEVOTHYROXINE SODIUM 25 MCG TABLET PO (06:39)
[2022-07-04 06:50] LABS: Alanine Aminotransferase 17 U/L (6-50); Albumin Level 2.6 g/dL (3.5-5.1); Alkaline Phosphatase 95 U/L (38-126); Anion Gap 3 mmol/L (8-16); Aspartate Amino Transferase 39 U/L (17-59); Bilirubin,Total 0.9 mg/dL (0.2-1.3); Blood Urea Nitrogen 11 mg/dL (9-20); Calcium 7.6 mg/dL (8.4-10.2); Carbon Dioxide 25 mmol/L (22-30); Chloride 104 mmol/L (98-107); Estimated CRCL calculation 90 ml/min; Estimated Glomerular Filt Rate > 60; Glucose 84 mg/dL (65-110); Potassium 3.7 mmol/L (3.4-5.0); Sodium 132 mmol/L (137-145)
[2022-07-04] MEDS: ASPIRIN 81 MG ENTERIC TABLET PO (08:20)
[2022-07-04] MEDS: ACETAMINOPHEN 500 MG TABLET PO ×2 (08:20→20:48)
--- NOTE | 2022-07-04 08:58 | PM.IMPN ---
Progress Note: A&P Assessment and Plan (1) Right lower lobe pneumonia: Code(s): J18.9 - Pneumonia, unspecified organism Status: Acute Assessment and Plan: Vancomycin, cefepime, azithromycin, trend, last dose of azithromycin tomorrow at 10:30 am, 500 mg x 3 days ends 07/05/22, will transition to oral cefdinir to complete a 7 day course, end date 07/09/22, and d/c vanc + cefepime, do not suspect MRSA PNA Home O2 eval ordered for tomorrow PT/OT ordered for today (2) Chronic anemia: Code(s): D64.9 - Anemia, unspecified Status: Acute Assessment and Plan: Stable, monitor (3) Essential tremor: Code(s): G25.0 - Essential tremor Status: Acute Assessment and Plan: Stable (4) Mixed hyperlipidemia: Code(s): E78.2 - Mixed hyperlipidemia Status: Acute (5) Abdominal aortic aneurysm (AAA) without rupture: Code(s): I71.40 - Abdominal aortic aneurysm, without rupture, unspecified Status: Acute Assessment and Plan: Would avoid Levaquin/fluoroquinolones (6) Pulmonary fibrosis: Code(s): J84.10 - Pulmonary fibrosis, unspecified Status: Acute (7) COPD (chronic obstructive pulmonary disease): Qualifiers: COPD type: unspecified COPD Qualified Code(s): J44.9 - Chronic obstructive pulmonary disease, unspecified Code(s): J44.9 - Chronic obstructive pulmonary disease, unspecified Status: Acute Assessment and Plan: Severe per PFTs in the past (8) Tobacco dependence: Code(s): F17.200 - Nicotine dependence, unspecified, uncomplicated Status: Acute (9) Rheumatoid arthritis: Qualifiers: Rheumatoid arthritis location: multiple sites Rheumatoid factor presence: unspecified presence Qualified Code(s): M06.9 - Rheumatoid arthritis, unspecified Code(s): M06.9 - Rheumatoid arthritis, unspecified Status: Acute Assessment and Plan: Methotrexate on hold while having antibiotics for pneumonia (10) Bronchogenic carcinoma: Code(s): C34.90 - Malignant neoplasm of unspecified part of unspecified bronchus or lung Status: Acute (11) Heart failure of unknown type: Code(s): I50.9 - Heart failure, unspecified Status: Acute Assessment and Plan: Echo from August 2021 showed an EF of 65% with diastolic heart failure, mild pulmonary hypertension and moderate aortic valve regurgitation Plan DVT prophylaxis with SCDs GI prophylaxis not indicated Code status full code Subjective Date/time seen: 07/04/22 08:58 Interval history: No overnight events noted. No chest pain. No nausea, vomiting or diarrhea. No fevers or chills. States he feels much better than yesterday. Review of Systems Review of Systems: 12 point review of systems was assessed and was negative except as noted in the HPI Exam Narrative: General: No acute distress, alert and oriented per baseline, stable on 2 L nasal cannula HEENT: Atraumatic, normocephalic, mucous membranes moist CV: Regular rate and rhythm, S1, S2 Lungs: Moderate air entry, no wheeze Abdomen: Soft, nontender, nondistended Extremities: Normal to inspection Skin: No rashes noted, no lesions or wounds seen Psych: Euthymic, normal affect Objective Data Vital Signs Vital Signs: Vital Signs - 24 hr 07/03/22 12:00 07/03/22 13:27 07/03/22 13:42 Temperature 97.4 F L Pulse Rate 73 72 77 Respiratory Rate 20 18 18 Blood Pressure 93/45 L Pulse Oximetry 94 Oxygen Delivery Oxygen Flow Rate 07/03/22 16:00 07/03/22 12:00 07/03/22 16:00 Temperature 97.6 F Pulse Rate 75 Respiratory Rate 16 Blood Pressure 104/47 L Pulse Oximetry 96 94 96 Oxygen Delivery High Flow Nasal Cannula High Flow Nasal Cannula Oxygen Flow Rate 3.5 3.5 07/03/22 10:00 07/03/22 12:00 07/03/22 14:00 Temperature Pulse Rate 73 75 74 Respiratory Rate Blood Pressu
[2022-07-04] MEDS: IPRATROPIUM BR 0.02% INH SOLN 0.5 MG/2.5 ML VIAL INHALATION ×3 (09:33→20:15)
[2022-07-04] MEDS: ALBUTEROL SULFATE NEB 2.5 MG/3 ML INH INHALATION ×3 (09:33→20:15)
[2022-07-04] MEDS: UMECLIDINIUM/VILANTEROL 62.5-25 MCG ELLIPTA 1 PUFF INHALATION (09:33)
[2022-07-04] MEDS: MIRTAZAPINE 15 MG TABLET PO (17:59)
[2022-07-04] MEDS: TAMSULOSIN HCL 0.4 MG CAPSULE PO (17:59)
[2022-07-04] MEDS: ATORVASTATIN 10 MG TABLET PO (17:59)
[2022-07-04] MEDS: CEFDINIR 300 MG CAPSULE PO (20:48)
[2022-07-05] VITALS (29 sets, daily range): BP systolic 96–135; BP diastolic 52–68; PULSE 66–106; RESP 16–20; TEMP 36.1–37.1; O2SAT 85–95
[2022-07-05] MEDS: ALBUTEROL SULFATE NEB 2.5 MG/3 ML INH INHALATION ×4 (02:20→20:26)
[2022-07-05] MEDS: IPRATROPIUM BR 0.02% INH SOLN 0.5 MG/2.5 ML VIAL INHALATION ×4 (02:22→20:26)
[2022-07-05 05:03] LABS: Basophils Percent Auto 0.3 % (0.2-1.2); Eosinophils Absolute Auto 0.1 K/mm3 (0-0.3); Eosinophils Percent Auto 1.2 % (0-4.4); Immature Granulocyte Absolute 0.05 K/mm3 (0.00-0.031); Immature Granulocyte Percent A 0.4 % (0-0.5); Lymphocytes Absolute Auto 0.87 K/mm3 (0.9-3.2); Lymphocytes Percent Auto 7.3 % (18.3-44.2); Mean Corpuscular HGB Conc 33.3 g/dl (32-36); Mean Corpuscular Hemoglobin 32.5 pg (26-34); Mean Corpuscular Volume 97.6 fl (80-100); Mean Platelet Volume 9.6 fl (7.4-10.4); Monocytes Absolute Auto 0.7 K/mm3 (0.1-0.6); Monocytes Percent Auto 6.2 % (2.6-8.5); Neutrophils Absolute Auto 10.1 K/mm3 (1.3-6.7); Neutrophils Percent Auto 84.6 % (45.5-73.1); Platelet Count Result 169 k/mm3 (150-375); Red Blood Count 3.69 M/mm3 (4.6-6.20); Red Cell Distribution Width 15.7 % (11.5-14.5); White Blood Count 11.9 K/mm3 (4.5-10.0)
[2022-07-05 05:15] LABS: Alanine Aminotransferase 19 U/L (6-50); Albumin Level 2.6 g/dL (3.5-5.1); Alkaline Phosphatase 96 U/L (38-126); Anion Gap 2 mmol/L (8-16); Aspartate Amino Transferase 42 U/L (17-59); Bilirubin,Total 0.8 mg/dL (0.2-1.3); Blood Urea Nitrogen 9 mg/dL (9-20); Calcium 7.8 mg/dL (8.4-10.2); Carbon Dioxide 27 mmol/L (22-30); Chloride 102 mmol/L (98-107); Estimated CRCL calculation 90 ml/min; Estimated Glomerular Filt Rate > 60; Glucose 90 mg/dL (65-110); Potassium 3.1 mmol/L (3.4-5.0); Sodium 131 mmol/L (137-145)
[2022-07-05] MEDS: LEVOTHYROXINE SODIUM 25 MCG TABLET PO (05:38)
--- NOTE | 2022-07-05 08:55 | PCOTNOTE ---
Attempted to see patient this am, however patient refused. Pt stated, Maybe a little later. I'm gonna take a nap. Encouraged patient to participate now and take a nap after, however patient continue to decline stating, No, I'm fine right now.
[2022-07-05] MEDS: CEFDINIR 300 MG CAPSULE PO ×2 (09:00→21:11)
[2022-07-05] MEDS: ASPIRIN 81 MG ENTERIC TABLET PO (09:00)
[2022-07-05] MEDS: ACETAMINOPHEN 500 MG TABLET PO ×2 (09:00→21:11)
[2022-07-05] MEDS: UMECLIDINIUM/VILANTEROL 62.5-25 MCG ELLIPTA 1 PUFF INHALATION (09:14)
--- NOTE | 2022-07-05 09:33 | PCPTNOTE ---
Attempted PT evaluation, pt refused stating maybe later. RN aware. Will Follow.
--- NOTE | 2022-07-05 11:29 | HOMEO2EVAL ---
Evaluation was performed at [facility] Home Oxygen Evaluation RC: Home Oxygen (O2) Evaluation Start: 07/05/22 09:28 Freq: ONCE Status: Active Protocol: RPE Activity Type Activity Date Activity User E-sign Co-sign Detail Recorded Client Recorded Date Recorded By Document 07/05/22 10:50 PK [email or web address] 07/05/22 11:29 PKH Document 07/05/22 10:55 PK [email or web address] 07/05/22 11:29 PKH Document 07/05/22 11:00 PK [email or web address] 07/05/22 11:29 PK Document 07/05/22 11:05 PK [email or web address] 07/05/22 11:29 PK Document 07/05/22 11:20 PK [email or web address] 07/05/22 11:29 PK Document 07/05/22 11:25 PK [email or web address] 07/05/22 11:29 PKH 07/05/22 07/05/22 07/05/22 10:50 10:55 11:00 Home O2 Evaluation [Oxygen] -Test Phase Resting Exercise Resting -Oxygen Delivery Room Air Room Air Nasal Cannula -Oxygen Flow Rate (L/min) 1 [Pulse Oximetry] -Pulse Oximetry (90-100 %) 93 85 L 87 L [Pulse Rate] -Pulse Rate (60-100 beats/min) 75 86 88 [Evaluation] -Activity Tolerance Good [Charges] -Treatment Charges O2 Evaluation - Inpatient 07/05/22 07/05/22 07/05/22 11:05 11:20 11:25 Home O2 Evaluation [Oxygen] -Test Phase Resting Exercise Resting -Oxygen Delivery Nasal Cannula Nasal Cannula Room Air -Oxygen Flow Rate (L/min) 2 2 [Pulse Oximetry] -Pulse Oximetry (90-100 %) 90 92 93 [Pulse Rate] -Pulse Rate (60-100 beats/min) 88 88 84 [Evaluation] -Activity Tolerance [Charges] -Treatment Charges
--- NOTE | 2022-07-05 11:34 | PCRCNOTE ---
HOME O2 EVAL COMPLETE. ROOM AIR WITH REST AND 2 LPM WITH ACTIVITY. RN NOTIFIED. O2 SET UP WITH [facility] PATIENT .
--- NOTE | 2022-07-05 14:36 | PM.IMPN ---
Progress Note: A&P Assessment and Plan (1) Right lower lobe pneumonia: Code(s): J18.9 - Pneumonia, unspecified organism Status: Acute Assessment and Plan: Vancomycin, cefepime, azithromycin, trend, last dose of azithromycin tomorrow at 10:30 am, 500 mg x 3 days ends 07/05/22. He was transition to oral cefdinir to complete a 7 day course, end date 07/09/22, and d/c vanc + cefepime, do not suspect MRSA PNA Home O2 eval ordered and he requires 2L with exertion. PT/OT ordered. He may need placement. (2) Chronic anemia: Code(s): D64.9 - Anemia, unspecified Status: Acute Assessment and Plan: Stable, monitor (3) Essential tremor: Code(s): G25.0 - Essential tremor Status: Acute Assessment and Plan: Stable (4) Abdominal aortic aneurysm (AAA) without rupture: Code(s): I71.40 - Abdominal aortic aneurysm, without rupture, unspecified Status: Acute Assessment and Plan: Would avoid Levaquin/fluoroquinolones (5) Pulmonary fibrosis: Code(s): J84.10 - Pulmonary fibrosis, unspecified Status: Acute Assessment and Plan: Chronic. Weaned to room air at rest. Still requires O2 with exertion. Follow (6) COPD (chronic obstructive pulmonary disease): Qualifiers: COPD type: unspecified COPD Qualified Code(s): J44.9 - Chronic obstructive pulmonary disease, unspecified Code(s): J44.9 - Chronic obstructive pulmonary disease, unspecified Status: Acute Assessment and Plan: Severe per PFTs in the past (7) Tobacco dependence: Code(s): F17.200 - Nicotine dependence, unspecified, uncomplicated Status: Acute Assessment and Plan: Patient was educated about the benefits of smoking cessation. (8) Rheumatoid arthritis: Qualifiers: Rheumatoid arthritis location: multiple sites Rheumatoid factor presence: unspecified presence Qualified Code(s): M06.9 - Rheumatoid arthritis, unspecified Code(s): M06.9 - Rheumatoid arthritis, unspecified Status: Acute Assessment and Plan: Methotrexate on hold while having antibiotics for pneumonia (9) Heart failure of unknown type: Code(s): I50.9 - Heart failure, unspecified Status: Acute Assessment and Plan: Patient appears to have chronic diastolic CHF with echo from August 2021 showing an EF of 65% with diastolic heart failure, mild pulmonary hypertension and moderate aortic valve regurgitation. Clinically euvolemic. Continue to follow. Plan DVT prophylaxis with SCDs GI prophylaxis not indicated Code status full code Subjective Date/time seen: 07/05/22 14:36 Interval history: 81yo male with RA, tobacco abuse, COPD and RAMONA here for altered mental status and found to have PNA. Assuming care. Chart reviewed. Patient still feels mildly short of breath. He has a dry cough. He does not wear oxygen at home. He denies chest pain. He lives in assisted living with his . He normally walks with walker. He has been up to the chair but not walking much. Nursing states patient has been refusing therapy because he is tired. Exam Narrative: AF 102/52 71 18 95% ra Gen - NARD lying flat in bed Chest - right base crackles o/w clear, nml RR CV - RRR S1/S2. Tele showing mostly paced rhythm Abd - Soft, NT/ND, Positive BS Ext - No pedal edema Psych - Nml mood and affect Skin - Warm and dry Objective Data Vital Signs Vital Signs: Vital Signs - 24 hr 07/04/22 16:00 07/04/22 16:00 07/04/22 18:00 Temperature 98.1 F Pulse Rate 79 71 77 Respiratory Rate 22 H Blood Pressure 140/74 Pulse Oximetry 90 Oxygen Delivery Oxygen Flow Rate 07/04/22 16:00 07/04/22 19:49 07/04/22 20:15 Temperature 97.5 F L Pulse Rate 77 76 Respiratory Rate 16 18 Blood Pressure 126/55 L Pulse Oximetry 90 92 Oxygen Delivery High Flow Nasal Cannula Oxygen Flow Rate 1
[2022-07-05] MEDS: TAMSULOSIN HCL 0.4 MG CAPSULE PO (18:49)
[2022-07-05] MEDS: MIRTAZAPINE 15 MG TABLET PO (18:49)
[2022-07-05] MEDS: ATORVASTATIN 10 MG TABLET PO (18:49)
[2022-07-06] VITALS (11 sets, daily range): BP systolic 137–146; BP diastolic 60–76; PULSE 60–86; RESP 16–24; TEMP 36–36.9; O2SAT 90–98
[2022-07-06 05:01] LABS: Basophils Percent Auto 0.4 % (0.2-1.2); Eosinophils Absolute Auto 0.5 K/mm3 (0-0.3); Eosinophils Percent Auto 4.6 % (0-4.4); Hematocrit 35.8 % (42.0-52.0); Hemoglobin 12.1 g/dL (14.0-18.0); Immature Granulocyte Absolute 0.04 K/mm3 (0.00-0.031); Immature Granulocyte Percent A 0.4 % (0-0.5); Lymphocytes Absolute Auto 1.36 K/mm3 (0.9-3.2); Lymphocytes Percent Auto 13.1 % (18.3-44.2); Mean Corpuscular HGB Conc 33.8 g/dl (32-36); Mean Corpuscular Hemoglobin 32.2 pg (26-34); Mean Corpuscular Volume 95.2 fl (80-100); Mean Platelet Volume 9.8 fl (7.4-10.4); Monocytes Percent Auto 9.7 % (2.6-8.5); Neutrophils Absolute Auto 7.4 K/mm3 (1.3-6.7); Neutrophils Percent Auto 71.8 % (45.5-73.1); Platelet Count Result 208 k/mm3 (150-375); Red Blood Count 3.76 M/mm3 (4.6-6.20); Red Cell Distribution Width 15.4 % (11.5-14.5); White Blood Count 10.4 K/mm3 (4.5-10.0)
--- NOTE | 2022-07-06 05:06 | PCRCNOTE ---
Window of time for administration has passed. See next scheduled administration.
[2022-07-06 05:26] LABS: Alanine Aminotransferase 20 U/L (6-50); Albumin Level 2.6 g/dL (3.5-5.1); Alkaline Phosphatase 94 U/L (38-126); Anion Gap 4 mmol/L (8-16); Aspartate Amino Transferase 41 U/L (17-59); Bilirubin,Total 0.8 mg/dL (0.2-1.3); Blood Urea Nitrogen 6 mg/dL (9-20); Calcium 7.6 mg/dL (8.4-10.2); Carbon Dioxide 29 mmol/L (22-30); Chloride 104 mmol/L (98-107); Estimated CRCL calculation 86 ml/min; Estimated Glomerular Filt Rate > 60; Glucose 85 mg/dL (65-110); Potassium 3.2 mmol/L (3.4-5.0); Sodium 137 mmol/L (137-145)
[2022-07-06] MEDS: LEVOTHYROXINE SODIUM 25 MCG TABLET PO (06:19)
[2022-07-06] MEDS: UMECLIDINIUM/VILANTEROL 62.5-25 MCG ELLIPTA 1 PUFF INHALATION (07:05)
[2022-07-06] MEDS: IPRATROPIUM BR 0.02% INH SOLN 0.5 MG/2.5 ML VIAL INHALATION ×2 (07:05→13:05)
[2022-07-06] MEDS: ALBUTEROL SULFATE NEB 2.5 MG/3 ML INH INHALATION ×2 (07:05→13:05)
[2022-07-06] MEDS: ASPIRIN 81 MG ENTERIC TABLET PO (08:07)
[2022-07-06] MEDS: ACETAMINOPHEN 500 MG TABLET PO (08:07)
[2022-07-06] MEDS: CEFDINIR 300 MG CAPSULE PO (08:07)
[2022-07-06] MEDS: POTASSIUM CHLORIDE 20 MEQ TABLET 40 MEQ PO (09:59)
--- NOTE | 2022-07-06 12:12 | PM.DS ---
DS: Admitting Diagnosis Discharge Date 07/06/22 Admitting Diagnosis Altered mental status DS: Discharge Diagnosis Discharge Diagnosis (1) Severe sepsis: Code(s): A41.9 - Sepsis, unspecified organism; R65.20 - Severe sepsis without septic shock Status: Acute (2) Right lower lobe pneumonia: Code(s): J18.9 - Pneumonia, unspecified organism Status: Acute (3) Chronic anemia: Code(s): D64.9 - Anemia, unspecified Status: Acute (4) Essential tremor: Code(s): G25.0 - Essential tremor Status: Acute (5) Abdominal aortic aneurysm (AAA) without rupture: Code(s): I71.40 - Abdominal aortic aneurysm, without rupture, unspecified Status: Acute (6) Pulmonary fibrosis: Code(s): J84.10 - Pulmonary fibrosis, unspecified Status: Acute (7) COPD (chronic obstructive pulmonary disease): Qualifiers: COPD type: unspecified COPD Qualified Code(s): J44.9 - Chronic obstructive pulmonary disease, unspecified Code(s): J44.9 - Chronic obstructive pulmonary disease, unspecified Status: Acute (8) Tobacco dependence: Code(s): F17.200 - Nicotine dependence, unspecified, uncomplicated Status: Acute (9) Rheumatoid arthritis: Qualifiers: Rheumatoid arthritis location: multiple sites Rheumatoid factor presence: unspecified presence Qualified Code(s): M06.9 - Rheumatoid arthritis, unspecified Code(s): M06.9 - Rheumatoid arthritis, unspecified Status: Acute (10) Heart failure of unknown type: Code(s): I50.9 - Heart failure, unspecified Status: Acute DS: Summary Hospital Course Reason for hospitalization: 81yo male with RA, tobacco abuse, COPD and RAMONA here for altered mental status and found to have PNA. Please see H&P for details. Hospital Course: Patient presents with altered mental status and found to have severe sepsis. Sepsis was present on admission with lactic acidosis, leukocytosis, tachycardia, tachypnea and fever. CT of the chest on admission showed no PE but does show right lower lobe pneumonia and small right pleural effusion. Sepsis related to PNA. he was treated with Vancomycin, cefepime and azithromycin. He completed azithromycin. BCx NGTD. His dropped to 10K. His mental status improved. He was weaned to room air. He still required O2 at night and with activity. He was transition to oral cefdinir to complete a 7 day course, end date 07/09/22. He worked with PT/OT and did well with them. He was educated about the benefits of smoking cessation. He overall did well and was able to be discharged on 07/06/22 Status at Discharge Cognitive/behavioral status at discharge: Stable Time Spent with Patient Time attestation: Total time spent providing and/or coordinating discharge services: 35 minutes Time spent: Greater than 30 minutes Exam Narrative: AF 146/60 60 16 98% 2L Gen - NARD Chest - few scattered inspiratory crackles, nml RR CV - RRR S1/S2. Tele showing PVCs but mostly paced rhythm Abd - Soft, NT/ND, Positive BS Ext - No pedal edema Psych - Nml mood and affect Skin - Warm and dry DS: Data Data Completed and Pending Labs on day of discharge: Labs from last 24 hours 07/06/22 07/06/22 04:42 04:42 WBC 10.4 H RBC 3.76 L Hgb 12.1 L Hct 35.8 L MCV 95.2 MCH 32.2 MCHC 33.8 RDW 15.4 H Plt Count 208 MPV 9.8 Immature Gran % (Auto) 0.4 Neut % (Auto) 71.8 Lymph % (Auto) 13.1 L [place] % (Auto) 9.7 H Eos % (Auto) 4.6 H Baso % (Auto) 0.4 Lymph # (Auto) 1.36 [place] # (Auto) 1.0 H Eos # (Auto) 0.5 H Baso # (Auto) 0.0 Abs Immat Gran (auto) 0.04 H Absolute Neuts (auto) 7.4 H Absolute Nucleated RBC 0.0 Nucleated RBC % 0.0 Sodium 137 Potassium 3.2 L Chloride 104 Carbon Dioxide 29 Anion Gap 4 L BUN 6 L Creatinine 0.60 L Estim Creat Clear Calc 86 Estimated GFR > 60 Glucose 85 Calcium 7.6 L To
== END 2022-07-06 14:10 | DRG 871 ==
LOC: ANHED 17:54 → ANHIMU 23:11
PROVIDERS: Student in an Organized Health Care Education/Training Program; Admitting Provider Internal Medicine; Emergency Provider General Practice; PCP Family Medicine; Visit Provider Internal Medicine
DX: A41.9 Sepsis, unspecified organism (principal); J18.9 Pneumonia, unspecified organism; J96.01 Acute respiratory failure with hypoxia; J44.0 Chronic obstructive pulmonary disease with (acute) lower respiratory infection; C34.90 Malignant neoplasm of unspecified part of unspecified bronchus or lung; I50.32 Chronic diastolic (congestive) heart failure; R65.20 Severe sepsis without septic shock; Z20.822 Contact with and (suspected) exposure to COVID-19; D64.9 Anemia, unspecified; G25.0 Essential tremor; I71.40 Abdominal aortic aneurysm, without rupture, unspecified; J84.10 Pulmonary fibrosis, unspecified; M06.9 Rheumatoid arthritis, unspecified; I50.9 Heart failure, unspecified; G47.33 Obstructive sleep apnea (adult) (pediatric); F17.210 Nicotine dependence, cigarettes, uncomplicated; I48.91 Unspecified atrial fibrillation; N40.0 Benign prostatic hyperplasia without lower urinary tract symptoms; E03.9 Hypothyroidism, unspecified; E78.2 Mixed hyperlipidemia; E78.5 Hyperlipidemia, unspecified; G20 Parkinson's disease; Z79.82 Long term (current) use of aspirin; Z85.828 Personal history of other malignant neoplasm of skin; Z86.718 Personal history of other venous thrombosis and embolism; Z87.442 Personal history of urinary calculi; Z90.49 Acquired absence of other specified parts of digestive tract; Z95.0 Presence of cardiac pacemaker; Z86.711 Personal history of pulmonary embolism
CPT/HCPCS: 36415; 36600; 70450; 71045; 71275; 80053; 80202; 81001; 82805; 82948; 83605; 83880; 84484; 85025; 85610; 85730; 87040; 87636; 93005; 94618; 94640; 96361; 96365; 96367; 96375; 97161; 97166; 97530; 97535; 99285; A9270; J0131; J0456; J0692; J3370; J7030; J7040; Q9967

== ENCOUNTER 2022-08-21 19:10 | Emergency (ER) | payer MEDICARE, SELFPAY ==
--- NOTE | ~2022-08-21 | XR_ITS ---
XR hip RT 2V w AP pelvis 08/21/2022 22:12 Indication: Right hip pain. Procedure: AP pelvis and 2 views right hip Comparison: 05/01/2020 Findings: There is a dynamic compression screw of the right femoral neck with intramedullary citlali and a single distal interlocking screw. There is heterotopic ossification surrounding the proximal aspect of the femur. Osteopenia. No acute fractures identified. There is atherosclerosis. Hardware appears to be intact. There is lower lumbar spondylosis. Impression: 1: No acute bone or joint abnormality. Reviewed, dictated and finalized at location A. Impression: 1: No acute bone or joint abnormality.
--- NOTE | ~2022-08-21 | XR_ITS ---
XR chest 1V portable 08/21/2022 22:14 Indication: Weakness. Coronary artery disease. Procedure: AP portable chest Comparison: Comparison to multiple prior studies sequentially, with oldest reviewed study dated 05/19. Findings: There is emphysema. There are chronic interstitial infiltrates bilaterally without signific ant change. No acute focal pneumonia, edema. Chronic left costophrenic recess blunting which may repr esent small effusion or pleural thickening. No pneumothorax. Impression: 1: No significant interval change from prior studies. Reviewed, dictated and finalized at location A. Impression: 1: No significant interval change from prior studies.
--- NOTE | ~2022-08-21 | CT_ITS ---
Non-contrast CT scan of the Pelvis Clinical indication: Pain on ambulation Technique: 2.5 mm axial scans were obtained through the pelvis without intravenous or oral contrast. Dose reduction technique was used on this scan by utilizing automated exposure control and iterative reconstruction technique. The dose-length product (DLP) was 460.59 mGy-cm. COMPARISON: 05/22/2018 Findings: Visualized bowel loops are unremarkable. Urinary bladder unremarkable. Prostate gland and s eminal vesicles are unremarkable. No ascites. No pelvic lymphadenopathy seen. Aortic stent graft is imaged at the visualized distal abdominal aorta with underlying aortic aneurysm present. There are extensive atherosclerotic calcifications of the iliac vessels and distal aorta. There is acute transverse minimally displaced fracture of the right inferior pubic ramus. There is an additional oblique minimally displaced fracture isolated to the anterior right acetabulum (series 3 image 71). Patient is status post prior ORIF for now healed fracture of the right femoral neck. Impression: Acute minimally displaced fractures at the right inferior pubic ramus and anterior corner of the righ t anterior acetabulum. Please see details above. Aortic stent graft in place. Prior ORIF of now healed right femoral neck fracture. Reviewed, dictated and finalized at [facility]. Impression: Acute minimally displaced fractures at the right inferior pubic ramus and anter ior corner of the right anterior acetabulum. Please see details above. Aortic stent graft in place. Prior ORIF of now healed right femoral neck fracture.
[2022-08-21 19:15] VITALS: BP 124/71; PULSE 81; RESP 15; TEMP 36.4; O2SAT 94
[2022-08-21 21:13] VITALS: BP 110/57; PULSE 66; O2SAT 100
--- NOTE | 2022-08-21 21:27 | ECG_ITS ---
Measurements Intervals [place] Rate: 72 P: 115 [place]: 140 QRS: -82 QRSD: 155 T: 91 QT: 461 QTc: 505 Interpretive Statements ELECTRONIC VENTRICULAR PACEMAKER WITH ABERRANTLY CONDUCTED PREMATURE ATRIAL COMPLEXES ABNORMAL RHYTHM ECG COMPARED TO ECG 07/02/2022 17:49:14 VENTIRUCLAR PACED RHYTHM NOW PRESENT Electronically Signed On 08-22-2022 17:40:08 CDT by Destini Owen M.D.
[2022-08-21] MEDS: ACETAMINOPHEN 500 MG TABLET 1000 MG PO (22:12)
[2022-08-21] MEDS: SODIUM CHLORIDE 0.9% IV 1,000 ML 999 ML IV CONT (22:14)
[2022-08-21 22:24] LABS: Appearance Urine Clear (Clear); Bilirubin Urine Negative (Negative); Blood Urine Trace-intact (Negative); Color Urine Yellow (Yellow); Glucose Urine UA Negative (Negative); Ketones Urine Negative (Negative); Leukocyte Esterase Ur Negative LEU/UL (Negative); Nitrate Urine Negative (Negative); Protein Urine Negative (Negative); Urobilinogen Urine 0.2 mg/dL (<2.0); pH Urine 6.5 (5.0-9.0)
[2022-08-21 22:30] LABS: Basophils Absolute Auto 0.1 K/mm3 (0.0-0.1); Basophils Percent Auto 0.6 % (0.2-1.2); Eosinophils Absolute Auto 0.4 K/mm3 (0-0.3); Eosinophils Percent Auto 3.6 % (0-4.4); Hematocrit 39.4 % (42.0-52.0); Hemoglobin 12.7 g/dL (14.0-18.0); Immature Granulocyte Absolute 0.03 K/mm3 (0.00-0.031); Immature Granulocyte Percent A 0.3 % (0-0.5); Lymphocytes Absolute Auto 2.22 K/mm3 (0.9-3.2); Lymphocytes Percent Auto 22.8 % (18.3-44.2); Mean Corpuscular HGB Conc 32.2 g/dl (32-36); Mean Corpuscular Hemoglobin 31.2 pg (26-34); Mean Corpuscular Volume 96.8 fl (80-100); Mean Platelet Volume 9.1 fl (7.4-10.4); Monocytes Absolute Auto 0.8 K/mm3 (0.1-0.6); Monocytes Percent Auto 8.4 % (2.6-8.5); Neutrophils Absolute Auto 6.2 K/mm3 (1.3-6.7); Neutrophils Percent Auto 64.3 % (45.5-73.1); Platelet Count Result 232 k/mm3 (150-375); Red Blood Count 4.07 M/mm3 (4.6-6.20); Red Cell Distribution Width 15.6 % (11.5-14.5); White Blood Count 9.7 K/mm3 (4.5-10.0)
[2022-08-21 22:32] LABS: Add Urine Microscopic? YES
[2022-08-21 22:33] VITALS: BP 130/58; PULSE 71; RESP 20; O2SAT 92
[2022-08-21 22:33] LABS: Bacteria Urine Trace /hpf; Squamous Epithelial Cell Urine Rare /hpf (Few); WBC Urine None seen /hpf (0-3)
[2022-08-21 22:41] LABS: Alanine Aminotransferase 15 U/L (6-50); Albumin Level 2.9 g/dL (3.5-5.1); Alkaline Phosphatase 146 U/L (38-126); Anion Gap 4 mmol/L (8-16); Aspartate Amino Transferase 27 U/L (17-59); Bilirubin,Total 0.4 mg/dL (0.2-1.3); Blood Urea Nitrogen 11 mg/dL (9-20); Calcium 7.7 mg/dL (8.4-10.2); Carbon Dioxide 30 mmol/L (22-30); Chloride 100 mmol/L (98-107); Creatine Kinase < 20 U/L (55-170); Estimated CRCL calculation 101 ml/min; Estimated Glomerular Filt Rate > 60; Glucose 122 mg/dL (65-110); Lactic Acid Reflex 1.8 mmol/L (0.7-2.0); Phosphorus 3.1 mg/dL (2.5-4.5); Potassium 3.4 mmol/L (3.4-5.0); Sodium 134 mmol/L (137-145)
[2022-08-21 22:51] LABS: Troponin I 0.024 ng/mL (0.000-0.034)
--- NOTE | 2022-08-21 23:33 | ED.GENADULT ---
HPI - General Adult General Chief complaint: Extremity Problem,Nontraumatic Stated complaint: r hip pain Time Seen by Provider: 08/21/22 20:44 History of Present Illness HPI narrative: this is an 81-year-old male [facility] as he was complaining of right hip pain. the patient has been refusing to do his PT OT due to increased pain. At this time patient tells me he is having pain along the outside of his hip. He denies any falls. He denies fever, chills, chest pain difficulty breathing abdominal pain or any other complaints at this time. Related Data Home Medications Medication Instructions Recorded Confirmed acetaminophen 500 mg tablet 500 mg PO QAM AND QPM 04/06/19 07/10/22 (Tylenol Extra Strength) methotrexate sodium 2.5 mg tablet 20 mg PO WEEKLY 04/06/19 07/10/22 aspirin 81 mg tablet,delayed 81 mg PO DAILY 04/24/19 07/10/22 release (Ecotrin Low Strength) rxzggxtm-ocvkdaff-sdqlz acid 400 1 tablet PO DAILY 04/24/19 07/10/22 mcg-vit K 20 mcg-lycop 300 mcg tablet (One-A-Day Men's Multivitamin) ascorbic acid (vitamin C) 500 mg mg PO 07/10/22 07/10/22 capsule cholecalciferol (vitamin D3) 125 125 mcg PO DAILY 07/10/22 07/10/22 mcg (5,000 unit) capsule folic acid 1 mg tablet 1 mg PO DAILY 07/10/22 07/10/22 Allergies Allergy/AdvReac Type Severity Reaction Status Date / Time No Known Allergies Allergy Verified 07/10/22 16:11 [facility] Past Medical History Medical History (Updated 08/22/22 @ 02:28 by Chris Cat MD) Abdominal aortic aneurysm Status post repair. Acute respiratory failure with hypoxia Ataxia BCC (basal cell carcinoma), chest Benign essential tremor Benign prostatic hyperplasia BMI 21.0-21.9, adult Carotid artery disease Status post left carotid endarterectomy in December 2017. Carotid stenosis, left Chronic anemia With history of blood transfusion. CKD (chronic kidney disease) stage 3, GFR 30-59 ml/min COPD (chronic obstructive pulmonary disease) PFTs in 2018 demonstrated severe disease. Essential tremor History of DVT of lower extremity Right popliteal DVT diagnosed March 18, 2018. History of kidney stones History of pulmonary embolism Right upper lobe PE diagnosed March 17, 2018. Hyperlipidemia Left rib fracture Sustained in a fall several weeks ago. Mass of lung Obstructive sleep apnea Parkinson's disease Pulmonary fibrosis Rheumatoid arthritis On methotrexate. Right hip pain Skin lesion of face Tobacco abuse Surgical History Surgical History History of cholecystectomy History of left-sided carotid endarterectomy Left side in December 2017. Status cardiac pacemaker Status post abdominal aortic aneurysm repair Family History Family History Mother Family history of heart disease in male family member before age 55 Family history of coronary artery disease, Onset Age: 57 Sibling Patient's brother is Father Patient's father is , Onset Age: 75 Family history unknown Social History Social History Social History: Mr. Waldron is and lives with his , Amena, in [place]. He designates his and son Dagoberto as his surrogate decision makers and he wishes to be a full code. 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 He continues to smoke about 5 cigarettes per day. He denies alcohol and drug abuse. Smoking packs per day: 0.5 Smoking cigarettes per day: 10.0 Years smoked: 60 Smoking pack-years: 30.00 Smoking status: Current every day smoker Tobacco type: cigarettes Second hand tobacco smoke exposure: No Additional smoking assessment comments: reports smoking his whole life Alcohol intake: former Alcohol use details: SOCIAL IN PAST Substance use: never Substance use type: d
--- NOTE | 2022-08-21 23:45 | PC.NURSE ---
Patient was able to stand by bed but was only able to take about 3 steps before he had to get back into pain. Patient stated this was because of pain in his hip.
[2022-08-22 00:55] VITALS: BP 134/68; PULSE 62; RESP 16; O2SAT 94
[2022-08-22 01:39] LABS: Troponin I 0.028 ng/mL (0.000-0.034)
[2022-08-22 01:43] VITALS: BP 160/69; PULSE 60; RESP 15; O2SAT 95
--- NOTE | 2022-08-22 02:56 | PC.NURSE ---
called [facility] to request transport back to [place]. ETA [id number]
--- NOTE | 2022-08-22 03:18 | PC.NURSE ---
[facility] here at [id number]
[2022-08-22 03:25] VITALS: BP 119/78; PULSE 96; RESP 17; TEMP 36.6; O2SAT 91
--- NOTE | 2022-08-22 03:28 | PC.NURSE ---
Notified [facility] [place] that patient would be coming back by EMS
== END 2022-08-22 03:29 ==
PROVIDERS: Emergency Provider Emergency Medicine; PCP Family Medicine
DX: S32.591A Other specified fracture of right pubis, initial encounter for closed fracture (principal); S32.491A Other specified fracture of right acetabulum, initial encounter for closed fracture; I25.10 Atherosclerotic heart disease of native coronary artery without angina pectoris; N18.30 Chronic kidney disease, stage 3 unspecified; I12.9 Hypertensive chronic kidney disease with stage 1 through stage 4 chronic kidney disease, or unspecified chronic kidney disease; I65.22 Occlusion and stenosis of left carotid artery; J44.9 Chronic obstructive pulmonary disease, unspecified; J84.10 Pulmonary fibrosis, unspecified; N40.0 Benign prostatic hyperplasia without lower urinary tract symptoms; E78.5 Hyperlipidemia, unspecified; D64.9 Anemia, unspecified; C44.91 Basal cell carcinoma of skin, unspecified; G47.33 Obstructive sleep apnea (adult) (pediatric); G20 Parkinson's disease; M06.9 Rheumatoid arthritis, unspecified; F17.210 Nicotine dependence, cigarettes, uncomplicated; Z95.0 Presence of cardiac pacemaker; Z90.49 Acquired absence of other specified parts of digestive tract; Z86.711 Personal history of pulmonary embolism; Z86.718 Personal history of other venous thrombosis and embolism; Z87.442 Personal history of urinary calculi; Z79.82 Long term (current) use of aspirin; R94.31 Abnormal electrocardiogram [ECG] [EKG]; X58.XXXA Exposure to other specified factors, initial encounter
CPT/HCPCS: 36415; 71045; 72192; 73502; 80053; 81001; 82550; 83605; 83735; 84100; 84484; 85025; 87040; 93005; 96360; 99284; A9270; J7030

== ENCOUNTER 2022-10-16 11:01 | Inpatient (IN) | payer MEDICARE, SELFPAY ==
[2022-10-16] VITALS (10 sets, daily range): BP systolic 135–152; BP diastolic 76–93; PULSE 98–113; RESP 16–23; TEMP 37–37.1; O2SAT 93–99; BMI 20.3
--- NOTE | ~2022-10-16 | XR_ITS ---
XR chest 1V portable 10/16/2022 11:38 Indication: Right-sided chest pain Procedure: AP portable chest Comparison: Comparison to multiple prior studies sequentially, with oldest reviewed study dated 05/19 Findings: stable cardiomediastinal silhouette. Pacemaker leads are stable. There are emphysematous ch anges. There are unchanged coarse interstitial infiltrates of the mid and lower lungs, left greater t singleton right. No pneumothorax. No acute osseous abnormality.. Impression: 1: Stable chronic interstitial infiltrates of the mid and lower lungs, left greater than right. Reviewed, dictated and finalized at location [] Impression: 1: Stable chronic interstitial infiltrates of the mid and lower lungs, left gre ater than right.
--- NOTE | ~2022-10-16 | CT_ITS ---
EXAMINATION: CTA chest PE protocol DATE: 10/24/2022 18:33 INDICATION: Elevated D-dimer shortness of breath TECHNIQUE: Computed tomography angiography (CTA) of the chest was performed with 100 mL Omnipaque-350 intravenous contrast timed to evaluate the pulmonary arteries. Coronal maximum intensity projection 3D-reconstructions were created by the technologist. The dose-length product (DLP) was 876.63 mGy-cm. Automated exposure control and iterative reconstruction technique were employed. COMPARISON: X-ray chest, same date. FINDINGS: Lung parenchyma and airways: Severe emphysematous change. Dependent bilateral lower lobe consolidatio n, including centrilobular nodular opacities. Pleura: Small bilateral pleural fluid collections. Thoracic inlet, axillae and chest wall: Right chest pacer. Thoracic aorta: Descending aortic ectasia. Moderate atherosclerotic calcification. Mediastinum: Normal. Heart and pericardium: Aortic valve calcification. Coronary artery calcifications: Moderate. Upper abdomen: No significant finding. Bones: No acute osseous finding. Pulmonary arteries: Study quality: Adequate. No pulmonary emboli detected. IMPRESSION: No CT evidence of acute pulmonary embolus. Severe emphysema. Bilateral lower lung opacities concernin g for infection, possibly with a component of aspiration given the distribution. Small bilateral pleu ral effusions. Reviewed, dictated and finalized at location K. IMPRESSION: No CT evidence of acute pulmonary embolus. Severe emphysema. Bilateral lower delma ng opacities concerning for infection, possibly with a component of aspiration given the distribution. Small bilateral pleural effusions.
--- NOTE | ~2022-10-16 | XR_ITS ---
XR chest 1V portable 10/24/2022 14:49 Indication: Hypoxia Procedure: AP portable chest Comparison: Comparison to multiple prior studies sequentially, with oldest reviewed study dated 10/16. Findings: Heart size normal. Extensive bilateral interstitial infiltrates which have progressed since prior studies. Small pleural effusions. No pneumothorax. Pacemaker leads are stable. Impression: 1: Progression of diffuse mixed interstitial and airspace disease which may represent pneumonia and/o r edema. Reviewed, dictated and finalized at location L. Impression: 1: Progression of diffuse mixed interstitial and airspace disease which may rep resent pneumonia and/or edema.
--- NOTE | ~2022-10-16 | XR_ITS ---
XR chest 1V portable 10/17/2022 13:52 Indication: Shortness of breath Procedure: AP portable chest Comparison: Comparison to multiple prior studies sequentially, with oldest reviewed study dated 05/19. Findings: Pacemaker leads are in expected position. There are infiltrates of the mid and lower lungs, left greater than right. The infiltrates of the left lower lung have progressed since prior study da johana 10/16/2022. There is emphysema with stable cardiomediastinal silhouette. No pneumothorax. No acute osseous abnormality. Impression: 1: Progression of infiltrates of the left mid and lower lung, compatible with pneumonia. Reviewed, dictated and finalized at location L. Impression: 1: Progression of infiltrates of the left mid and lower lung, compatible with p neumonia.
--- NOTE | ~2022-10-16 | XR_ITS ---
EXAMINATION: XR chest 1V portable INDICATION: Cough TECHNIQUE: Portable AP chest at 1445 hours COMPARISON: 10/18/2019 FINDINGS: Airspace opacities of the left mid and lower lung zones have decreased. There are developin g airspace opacities in the right lung base. Small pleural effusions are present. There is no pneumot horax. Cardiomegaly is noted. A triple lead cardiac pacemaker of the left chest wall ends with leads in expected locations. IMPRESSION: 1. Improving airspace opacities of the left mid and lower lung zones and developing airspace opacitie s in the right lung base, consistent with atelectasis versus pneumonia. 2. Small pleural effusions. Reviewed, dictated and finalized at location A. IMPRESSION: 1. Improving airspace opacities of the left mid and lower lung zones and develo ping airspace opacities in the right lung base, consistent with atelectasis clem poppy pneumonia. 2. Small pleural effusions.
--- NOTE | ~2022-10-16 | XR_ITS ---
Portable chest x-ray Comparison: 10/20/2022 Clinical History: Hypoxia Findings: There is extensive COPD and probable chronic interstitial disease. No definite acute pulmo nary pathology evident. Cardiomediastinal silhouette is stable, with pacemaker device. Bones and sof t tissues are unremarkable. Impression: Extensive COPD and/or chronic interstitial disease. Pacemaker device. Reviewed, dictated and finalized at location . Impression: Extensive COPD and/or chronic interstitial disease. Pacemaker device.
--- NOTE | ~2022-10-16 | CT_ITS ---
EXAMINATION: CT brain wo con DATE: 10/17/2022 12:03 INDICATION: Altered mental status. TECHNIQUE: Computed tomography (CT) of the head was performed without intravenous contrast. The mA wa s adjusted according to patient size. Iterative reconstruction technique was employed. The dose-lengt h product was 605.33 mGy-cm. COMPARISON: Head CT 07/02/2022 FINDINGS: There are old infarcts involving the bilateral basal ganglia, bilateral internal capsules, and left thalamus. There are scattered areas of low attenuation in the cerebral white matter. There i s an old infarct in right frontal lobe. There is no intracranial hemorrhage, acute infarction, or abn ormal intracranial mass lesion. There is expected dilatation of body of left lateral ventricle. There is mild mucosal thickening in the nasal sinuses. There is sclerosis of the flanagan of right sphenoid s inus, consistent with chronic sinusitis. There are small bilateral mastoid effusions. There is cerume n in the external auditory canals bilaterally. IMPRESSION: 1. 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 2. Stable moderate nonspecific cerebral white matter disease, which likely represents chronic small v essel ischemic disease. Reviewed, dictated and finalized at location A. IMPRESSION: 1. 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 2. Stable moderate nonspecific cerebral white matter disease, which likely repr esents chronic small vessel ischemic disease.
--- NOTE | ~2022-10-16 | XR_ITS ---
XR chest 1V portable DATE: 10/28/2022 07:16 INDICATION: Pneumonia TECHNIQUE: Portable AP chest on 10/24/2022 at 0656 hours COMPARISON: 10/24/2022 CT pulmonary scan portable AP chest 08/21/2021 portable AP chest at 2206 hours FINDINGS: Bilateral hyperinflation suggesting COPD. There is possible minor fissure and there are Ker rei B-lines suggesting subpleural and pulmonary interstitial edema. There is pulmonary vascular conge stion. There are patchy infiltrates involving the mid and lower lung zones, more prominent on lower l ungs. Mild blunting of left costophrenic angle suggesting left pleural effusion. The right costophrenic ang le is partially excluded. Left triple lead pacemaker device. Surgical clips overlie the left cervical area. Diffuse osteopenia. Thoracic dextroscoliosis. IMPRESSION: Congestive changes and bilateral pulmonary infiltrates. The bilateral infiltrates may be due to pulmonary edema, pneumonia and/or aspiration Reviewed, dictated and finalized at location A. IMPRESSION: Congestive changes and bilateral pulmonary infiltrates. The bilater al infiltrates may be due to pulmonary edema, pneumonia and/or aspiration
--- NOTE | ~2022-10-16 | XR_ITS ---
XR chest PICC line DATE: 10/29/2022 13:13 INDICATION: PICC catheter insertion TECHNIQUE: 3 portable AP views of the chest on 10/29/2022 at 1305, 1309 1311 hours COMPARISON: 10/24/2022 portable AP chest FINDINGS: Interval placement of right upper stomach the catheter; on the initial of 3 views the PICC catheter makes a U-turn in the superior vena cava with the distal tip directed cephalad. On the second radiograph the U-turn has been corrected but the distal tip overlies the upper right at rium. On the final radiograph the distal tip overlies the superior vena cava. No pneumothorax. Pulmonary vascular congestion, bilateral Vaishnavi B-lines, prominence of minor fissure, consistent with congestive changes including subpleural and pulmonary edema, bilateral infiltrates, increased since 10/24/2022 IMPRESSION: Right upper extremity PIC catheter placement in superior vena cava Congestive changes; increased bilateral infiltrates since 10/24/2022 Reviewed, dictated and finalized at Location A. Reviewed, dictated and finalized at location A.
--- NOTE | 2022-10-16 11:10 | ECG_ITS ---
Measurements Intervals [place] Rate: 93 P: 58 [place]: 147 QRS: 239 QRSD: 160 T: 29 QT: 426 QTc: 530 Interpretive Statements ELECTRONIC VENTRICULAR PACEMAKER NO FURTHER INTERPRETATION POSSIBLE COMPARED TO ECG 08/21/2022 21:40:52 NO SIGNIFICANT CHANGES Electronically Signed On 10-16-2022 17:07:41 CDT by Bryan Hooks M.D.
[2022-10-16 12:07] LABS: Basophils Percent Auto 0.4 % (0.2-1.2); Eosinophils Absolute Auto 0.1 K/mm3 (0-0.3); Eosinophils Percent Auto 0.5 % (0-4.4); Hematocrit 36.5 % (42.0-52.0); Hemoglobin 12.1 g/dL (14.0-18.0); Immature Granulocyte Absolute 0.06 K/mm3 (0.00-0.031); Immature Granulocyte Percent A 0.6 % (0-0.5); Lymphocytes Absolute Auto 1.05 K/mm3 (0.9-3.2); Lymphocytes Percent Auto 10.6 % (18.3-44.2); Mean Corpuscular HGB Conc 33.2 g/dl (32-36); Mean Corpuscular Hemoglobin 30.9 pg (26-34); Mean Corpuscular Volume 93.1 fl (80-100); Monocytes Absolute Auto 0.7 K/mm3 (0.1-0.6); Monocytes Percent Auto 7.4 % (2.6-8.5); Neutrophils Absolute Auto 7.9 K/mm3 (1.3-6.7); Neutrophils Percent Auto 80.5 % (45.5-73.1); Platelet Count Result 281 k/mm3 (150-375); Red Blood Count 3.92 M/mm3 (4.6-6.20); Red Cell Distribution Width 17.6 % (11.5-14.5); White Blood Count 9.9 K/mm3 (4.5-10.0)
[2022-10-16 12:13] LABS: INR 1.3; Prothrombin Time 16.7 Seconds (11.1-14.7)
[2022-10-16 12:14] LABS: Partial Thromboplastin Time 24.7 SECONDS (22.3-36.8)
[2022-10-16 12:15] LABS: Alanine Aminotransferase 18 U/L (6-50); Albumin Level 2.8 g/dL (3.5-5.1); Alkaline Phosphatase 116 U/L (38-126); Anion Gap 3 mmol/L (8-16); Aspartate Amino Transferase 31 U/L (17-59); Bilirubin,Total 0.7 mg/dL (0.2-1.3); Blood Urea Nitrogen 6 mg/dL (9-20); Calcium 7.5 mg/dL (8.4-10.2); Carbon Dioxide 32 mmol/L (22-30); Chloride 96 mmol/L (98-107); Estimated CRCL calculation 72 ml/min; Estimated Glomerular Filt Rate > 60; Glucose 126 mg/dL (65-110); Lipase 49 U/L (23-300); Potassium 3.4 mmol/L (3.4-5.0); Sodium 131 mmol/L (137-145)
[2022-10-16 12:23] LABS: NT Pro B Type Natriuretic Pept 991 pg/mL (19.9-100)
[2022-10-16 12:25] LABS: Troponin I 0.024 ng/mL (0.000-0.034)
[2022-10-16] MEDS: IPRATROPIUM BR 0.02% INH SOLN 0.5 MG/2.5 ML VIAL INHALATION ×2 (13:56→19:58)
[2022-10-16] MEDS: LEVALBUTEROL NEB 1.25 MG/3 ML INHALATION (13:56)
[2022-10-16] MEDS: dilTIAZem HCl INJ 25 MG/5 ML VIAL 10 MG IV PUSH (15:37)
--- NOTE | 2022-10-16 15:40 | ED.WEAKNESS ---
HPI - Weakness General Chief complaint: Weakness Stated complaint: accidental OD on home meds Time Seen by Provider: 10/16/22 11:27 History of Present Illness HPI Narrative: Patient is an 81-year-old male who presents to the ER with weakness and concern for possible ingestion of 2 days worth of medication. He lives at [facility] in [place]. Medication review shows no potentially serious toxicity risk given his home medications. Patient has however coughing and tachycardic upon arrival. He is chronically dependent on 3 to 4 L of oxygen. Patient is unsure if he took additional medication than what he is supposed to. He is oriented x3 but unable to provide any clear history. He has no pain at this time. Related Data Home Medications Medication Instructions Recorded Confirmed acetaminophen 500 mg tablet 500 mg PO QAM AND QPM 04/06/19 10/16/22 (Tylenol Extra Strength) methotrexate sodium 2.5 mg tablet 2.5 mg PO WEEKLY 04/06/19 10/16/22 aspirin 81 mg tablet,delayed 81 mg PO DAILY 04/24/19 10/16/22 release (Ecotrin Low Strength) etqewvyk-kqtcmuuk-fnvnf acid 400 1 tablet PO DAILY 04/24/19 10/16/22 mcg-vit K 20 mcg-lycop 300 mcg tablet (One-A-Day Men's Multivitamin) folic acid 1 mg tablet 1 mg PO DAILY 07/10/22 10/16/22 mirtazapine 30 mg tablet 15 mg PO QHS 10/16/22 10/16/22 Allergies Allergy/AdvReac Type Severity Reaction Status Date / Time No Known Allergies Allergy Verified 10/16/22 11:11 Review of Systems Review of Systems: ROS unobtainable: Yes unobtainable due to mental status [facility] Past Medical History Medical History Abdominal aortic aneurysm Status post repair. Acute respiratory failure with hypoxia Ataxia BCC (basal cell carcinoma), chest Benign essential tremor Benign prostatic hyperplasia BMI 21.0-21.9, adult Carotid artery disease Status post left carotid endarterectomy in December 2017. Carotid stenosis, left Chronic anemia With history of blood transfusion. CKD (chronic kidney disease) stage 3, GFR 30-59 ml/min COPD (chronic obstructive pulmonary disease) PFTs in 2018 demonstrated severe disease. Essential tremor History of DVT of lower extremity Right popliteal DVT diagnosed March 18, 2018. History of kidney stones History of pulmonary embolism Right upper lobe PE diagnosed March 17, 2018. Hyperlipidemia Left rib fracture Sustained in a fall several weeks ago. Mass of lung Obstructive sleep apnea Parkinson's disease Pulmonary fibrosis Rheumatoid arthritis On methotrexate. Right hip pain Skin lesion of face Tobacco abuse Surgical History Surgical History History of cholecystectomy History of left-sided carotid endarterectomy Left side in December 2017. Status cardiac pacemaker Status post abdominal aortic aneurysm repair Family History Family History Mother Family history of heart disease in male family member before age 55 Family history of coronary artery disease, Onset Age: 57 Sibling Patient's brother is Father Patient's father is , Onset Age: 75 Family history unknown Social History Social History (Updated 10/06/22 @ 14:24 by Karri Vora APRN) Social History: Mr. Waldron is and lives with his , Amena, in [place]. He designates his and son Dagoberto as his surrogate decision makers and he wishes to be a full code. 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 He continues to smoke about 5 cigarettes per day. He denies alcohol and drug abuse. Smoking packs per day: 0.5 Smoking cigarettes per day: 10.0 Years smoked: 60 Smoking pack-years: 30.00 Smoking status: Former smoker Tobacco type: cigarettes Second hand tobacco smoke exposure: No Additional smoking assessment comments: reports
[2022-10-16 15:54] LABS: Troponin I 0.022 ng/mL (0.000-0.034)
[2022-10-16 16:12] LABS: Alveolar/Arterial O2 Gradient 127.7 mmHg; Carboxyhemoglobin 0.6 % THb (0-2.0); Fractional Inspired Oxygen 32 %; HCO3 ABG 23.3 mEq/l (22.0-26.0); Methemoglobin ABG 0.3 %THb (0-1.5); Oxygen Content ABG 17.2 %vol (16.0-22.0); Oxygen Saturation ABG 95.9 % (95.0-100.0); Oxyhemoglobin 94.1 % THb (90.0-100.0); PCO2 ABG 27.2 mmHg (35.0-45.0); PO2 ABG 68.6 mmHg (80.0-100.0); PO2 FiO2 Ratio Arterial Blood 2.14 %
[2022-10-16 16:13] LABS: Device NASAL CANNULA; Modified Allen's Test Pass; Site Drawn RIGHT RADIAL
--- NOTE | 2022-10-16 17:17 | PC.NURSE ---
Ho called to confirm that pt pacemaker is in good standing.
[2022-10-16 18:29] LABS: Troponin I 0.029 ng/mL (0.000-0.034)
--- NOTE | 2022-10-16 18:47 | PC.NURSE ---
This patient, Jorge Waldron, was admitted to Medical Room 344-01. Patient/family oriented to hospital policies and general routines including ID bracelet, bed and alarms, visiting hours, pain management, procedures, bathroom and other care routines, personal items, smoking policy, room service/diet, and visiting hours. Information on how to activate the Rapid Response Team has been discussed. Patient/Family are encouraged to report perceived risks to care and to ask questions if they do not understand what they are told or what they should do.
[2022-10-16] MEDS: LEVALBUTEROL NEB 1.25 MG/3 ML 0.63 MG INHALATION (19:58)
--- NOTE | 2022-10-16 23:35 | PM.IMHP ---
H&P: HPI History of Present Illness Date/Time: 10/16/22 23:35 Chief Complaint: Possible unintentional overdose Narrative: 81-year-old male with a past medical history coronary artery disease, COPD, DVT/PE, essential hypertension and obstructive sleep apnea who presented to the ER via EMS from [facility] with possible ingestion of 2 days worth of medications. The ingestion reportedly occurred a couple of days ago. Patient is not on any medications that would be concerning for serious toxicity. But when the patient arrived to the ER he was noted to be coughing and was tachycardic. He is on chronic home oxygen at 3-4 L. the patient was alert oriented to person place and year. He thought the month was June. He was poor historian regarding recent events. He repetitively was asking staff for something to eat. It turns out the patient's was hospitalized also at our facility within the last few days. I am wondering if the patient's does not help provide care for the patient. Patient is not noted to be coughing. He has been afebrile. He denies any pain. However his noted to have marked coarse breath sounds. And has some increased work of breathing with conversation. Review of Systems Review of Systems: ROS unobtainable: Yes unobtainable due to mental status (Due to patient being a poor historian.) [facility] Past Medical History Medical History (Updated 10/17/22 @ 05:19 by Leanna Calvin DO) Abdominal aortic aneurysm Status post repair. Acute respiratory failure with hypoxia Ataxia BCC (basal cell carcinoma), chest Benign essential tremor Benign prostatic hyperplasia BMI 21.0-21.9, adult Carotid artery disease Status post left carotid endarterectomy in December 2017. Carotid stenosis, left Chronic anemia With history of blood transfusion. CKD (chronic kidney disease) stage 3, GFR 30-59 ml/min COPD (chronic obstructive pulmonary disease) PFTs in 2018 demonstrated severe disease. Essential tremor History of DVT of lower extremity Right popliteal DVT diagnosed March 18, 2018. History of kidney stones History of pulmonary embolism Right upper lobe PE diagnosed March 17, 2018. Hyperlipidemia Left rib fracture Sustained in a fall several weeks ago. Mass of lung Obstructive sleep apnea Parkinson's disease Pulmonary fibrosis Rheumatoid arthritis On methotrexate. Right hip pain Skin lesion of face Tobacco abuse Surgical History Surgical History History of cholecystectomy History of left-sided carotid endarterectomy Left side in December 2017. Status cardiac pacemaker Status post abdominal aortic aneurysm repair Family History Family History Mother Family history of heart disease in male family member before age 55 Family history of coronary artery disease, Onset Age: 57 Sibling Patient's brother is Father Patient's father is , Onset Age: 75 Family history unknown Social History Social History (Updated 10/17/22 @ 05:10 by Leanna Calvin DO) Social History: Mr. Waldron is and lives with his , Amena, in [place]. 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 He continues to smoke about 5 cigarettes per day. He denies alcohol and drug abuse. Code status: DNR/DNI (per EMR) Surrogate decision maker: Krzysztof (son) or Smoking packs per day: 0.5 Smoking cigarettes per day: 10.0 Years smoked: 60 Smoking pack-years: 30.00 Smoking status: Former smoker Tobacco type: cigarettes Second hand tobacco smoke exposure: No Additional smoking assessment comments: reports smoking his whole life Alcohol intake: former Alcohol use details: SOCIAL IN PAST Substance use: never Substance use type: does not use Lack of Transportation: No Lack of Food: Never True C
[2022-10-17] VITALS (20 sets, daily range): BP systolic 113–124; BP diastolic 48–73; PULSE 85–107; RESP 18–20; TEMP 36.4–36.9; O2SAT 91–100
[2022-10-17] MEDS: LEVALBUTEROL NEB 1.25 MG/3 ML 0.63 MG INHALATION ×4 (01:57→20:03)
[2022-10-17] MEDS: IPRATROPIUM BR 0.02% INH SOLN 0.5 MG/2.5 ML VIAL INHALATION ×4 (01:58→20:04)
[2022-10-17] MEDS: LEVOTHYROXINE SODIUM 25 MCG TABLET PO (06:03)
[2022-10-17] MEDS: methylPREDNISolone SOD SUCC 125 MG VIAL 60 MG IV PUSH ×3 (06:04→20:48)
[2022-10-17 09:16] LABS: Hematocrit 36.3 % (42.0-52.0); Hemoglobin 11.8 g/dL (14.0-18.0); Mean Corpuscular HGB Conc 32.5 g/dl (32-36); Mean Corpuscular Hemoglobin 30.3 pg (26-34); Mean Corpuscular Volume 93.3 fl (80-100); Mean Platelet Volume 9.1 fl (7.4-10.4); Platelet Count Result 276 k/mm3 (150-375); Red Blood Count 3.89 M/mm3 (4.6-6.20); Red Cell Distribution Width 17.4 % (11.5-14.5); White Blood Count 10.5 K/mm3 (4.5-10.0)
[2022-10-17 09:26] LABS: Alanine Aminotransferase 21 U/L (6-50); Albumin Level 2.8 g/dL (3.5-5.1); Alkaline Phosphatase 109 U/L (38-126); Anion Gap 7 mmol/L (8-16); Aspartate Amino Transferase 37 U/L (17-59); Bilirubin,Total 0.8 mg/dL (0.2-1.3); Blood Urea Nitrogen 4 mg/dL (9-20); Calcium 7.3 mg/dL (8.4-10.2); Carbon Dioxide 28 mmol/L (22-30); Chloride 94 mmol/L (98-107); Estimated CRCL calculation 83 ml/min; Estimated Glomerular Filt Rate > 60; Glucose 172 mg/dL (65-110); Magnesium 1.6 mg/dL (1.6-2.3); Potassium 3.2 mmol/L (3.4-5.0); Sodium 129 mmol/L (137-145)
[2022-10-17] MEDS: FOLIC ACID 1 MG TABLET PO (10:10)
[2022-10-17] MEDS: ASPIRIN 81 MG ENTERIC TABLET PO (10:10)
[2022-10-17 12:01] LABS: Appearance Urine Clear (Clear); Bilirubin Urine Negative (Negative); Blood Urine Negative (Negative); Color Urine Yellow (Yellow); Glucose Urine UA Negative (Negative); Ketones Urine Negative (Negative); Leukocyte Esterase Ur Negative LEU/UL (Negative); Nitrate Urine Negative (Negative); Protein Urine Negative (Negative); Specific Grav Ur 1.008 (1.001-1.035); pH Urine 5.5 (5.0-9.0)
[2022-10-17 12:12] LABS: Add Urine Microscopic? NO
--- NOTE | 2022-10-17 12:20 | PC.NURSE ---
Maryann at [facility] called requesting patient diagnosis. [employer] updated Maryann.
[2022-10-17] MEDS: FUROSEMIDE INJ 40 MG/4 ML VIAL 20 MG IV PUSH (14:26)
--- NOTE | 2022-10-17 14:46 | WPDPN ---
Progress Note: A&P Assessment and Plan (1) COPD exacerbation: Code(s): J44.1 - Chronic obstructive pulmonary disease with (acute) exacerbation Status: Acute (2) Tachycardia: Code(s): R00.0 - Tachycardia, unspecified Status: Acute Plan Patient was evaluated for possible accidental ingestion of additional medications but feel that this is less likely. The patient seems to have a exacerbation of his COPD/pulmonary fibrosis. Will place patient on scheduled nebulizer treatments and start Solu-Medrol 60 mg q.8 hours. Will continue monitor. Will continue patient's home oxygen. The ER the patient was may be having some multifocal atrial tachycardia. However EKG demonstrated electronic ventricular pacemaker rhythm. At the time my evaluation patient's heart rate was controlled. No need for further evaluation. Will treat underlying lung pathology. Patient does not have a history of dementia listed but would not be surprised if he does not have some chronic memory loss. Will continue to monitor. Patient may benefit from neuro cognitive evaluation after acute illness has resolved. 10/17/2022 interval history: patient remains confused and unable to provide detail history, CT of head showed old cerebral vascular disese but not acte injury, patient contine to cough and lungs sounds congetest chest x-ray is concerning for pneumonia and mild pulmonary edema, will give patient lasix 20mg x1 IV and started patient on doxycycline and ceftriaxone for possible community acquired pneumonia, will monitor and have PT/OT evaluate the patient. Subjective Date/time seen: 10/17/22 14:46 Interval history: Chief Complaint: Possible unintentional overdose HPI-Narrative: 81-year-old male with a past medical history coronary artery disease, COPD, DVT/PE, essential hypertension and obstructive sleep apnea who presented to the ER via EMS from [facility] with possible ingestion of 2 days worth of medications.? The ingestion reportedly occurred a couple of days ago.? Patient is not on any medications that would be concerning for serious toxicity.? But when the patient arrived to the ER he was noted to be coughing and was tachycardic.? He is on chronic home oxygen at 3-4 L. the patient was alert oriented to person place and year.? He thought the month was June.? He was poor historian regarding recent events.? He repetitively was asking staff for something to eat.? It turns out the patient's was hospitalized also at our facility within the last few days.? I am wondering if the patient's does not help provide care for the patient.? Patient is not noted to be coughing.? He has been afebrile.? He denies any pain.? However his noted to have marked coarse breath sounds.? And has some increased work of breathing with conversation. 10/17/2022 interval history: patient remains confused and unable to provide detail history, CT of head showed old cerebral vascular disese but not acte injury, patient contine to cough and lungs sounds congetest chest x-ray is concerning for pneumonia and mild pulmonary edema, will give patient lasix 20mg x1 IV and started patient on doxycycline and ceftriaxone for possible community acquired pneumonia, will monitor and have PT/OT evaluate the patient. Review of Systems Review of Systems: ROS unobtainable: Yes unobtainable due to mental status (Due to patient being a poor historian.) Exam Narrative: Patient is comfortable, NAD HEENT: eyes are clear and none icteric LUNGS: Normal respiratory effort ABD: Not distended Lower extremities: no edema SKIN: nonjaundiced Neuro: grossly intact. Objective Data Vital Signs Vital Signs: Vital Signs - 24 hr 10/16/22 16:43 10/16/22 18:14 10/16/22 19:59 Temperature 98.6 F Pulse Rate 103 H 112 H Respiratory Rate 18 20 Blood Pressure 135/76 Pulse Oximetry 95 97 Oxygen Delivery Nasal Cannula Oxygen Flow Rate 3 10/16/22
[2022-10-17] MEDS: DOXYCYCLINE 100 MG/NS 100 ML 100 MG/100 ML BAG IVPB (17:18)
[2022-10-17] MEDS: TAMSULOSIN HCL 0.4 MG CAPSULE PO (17:19)
[2022-10-17] MEDS: ATORVASTATIN 10 MG TABLET PO (17:19)
[2022-10-17] MEDS: MIRTAZAPINE SOLTAB 15 MG TAB.DISPER PO (20:48)
[2022-10-18] MEDS: methylPREDNISolone SOD SUCC 125 MG VIAL 60 MG IV PUSH ×3 (06:00→22:10)
[2022-10-18] MEDS: IPRATROPIUM BR 0.02% INH SOLN 0.5 MG/2.5 ML VIAL INHALATION ×3 (08:00→20:20)
[2022-10-18] MEDS: LEVALBUTEROL NEB 1.25 MG/3 ML 0.63 MG INHALATION ×3 (08:00→20:20)
[2022-10-18] MEDS: FOLIC ACID 1 MG TABLET PO (09:00)
[2022-10-18] MEDS: ASPIRIN 81 MG ENTERIC TABLET PO (09:00)
[2022-10-18] MEDS: TAMSULOSIN HCL 0.4 MG CAPSULE PO (18:00)
[2022-10-18] MEDS: ATORVASTATIN 10 MG TABLET PO (18:00)
--- NOTE | 2022-10-18 18:45 | PC.NURSE ---
Paper documentation exists on this patient due to [employer] System downtime on 10/18/22 from [id number] to [id number]
[2022-10-18 20:00] VITALS: PULSE 90
[2022-10-18 20:20] VITALS: PULSE 83; RESP 20; O2SAT 92
[2022-10-18 20:30] VITALS: PULSE 85; RESP 20
[2022-10-18 21:45] VITALS: BP 112/66; PULSE 94; RESP 18; TEMP 36.2; O2SAT 91
[2022-10-18] MEDS: MIRTAZAPINE SOLTAB 15 MG TAB.DISPER PO (22:35)
[2022-10-19] VITALS (16 sets, daily range): BP systolic 108–125; BP diastolic 53–76; PULSE 67–118; RESP 16–22; TEMP 36.6–37; O2SAT 91–100
[2022-10-19] MEDS: methylPREDNISolone SOD SUCC 125 MG VIAL 60 MG IV PUSH (05:30)
[2022-10-19] MEDS: LEVOTHYROXINE SODIUM 25 MCG TABLET PO ×2 (05:30→06:30)
[2022-10-19 05:50] LABS: Hematocrit 35.4 % (42.0-52.0); Hemoglobin 11.9 g/dL (14.0-18.0); Mean Corpuscular HGB Conc 33.6 g/dl (32-36); Mean Corpuscular Hemoglobin 30.9 pg (26-34); Mean Corpuscular Volume 91.9 fl (80-100); Mean Platelet Volume 9.2 fl (7.4-10.4); Platelet Count Result 308 k/mm3 (150-375); Red Blood Count 3.85 M/mm3 (4.6-6.20); Red Cell Distribution Width 17.3 % (11.5-14.5); White Blood Count 11.9 K/mm3 (4.5-10.0)
[2022-10-19 06:12] LABS: Alanine Aminotransferase 24 U/L (6-50); Albumin Level 2.7 g/dL (3.5-5.1); Alkaline Phosphatase 106 U/L (38-126); Anion Gap 3 mmol/L (8-16); Aspartate Amino Transferase 39 U/L (17-59); Bilirubin,Total 0.4 mg/dL (0.2-1.3); Blood Urea Nitrogen 9 mg/dL (9-20); Calcium 8.1 mg/dL (8.4-10.2); Carbon Dioxide 34 mmol/L (22-30); Chloride 99 mmol/L (98-107); Estimated CRCL calculation 97 ml/min; Estimated Glomerular Filt Rate > 60; Glucose 152 mg/dL (65-110); Magnesium 1.9 mg/dL (1.6-2.3); Potassium 2.9 mmol/L (3.4-5.0); Sodium 136 mmol/L (137-145)
[2022-10-19] MEDS: DOXYCYCLINE 100 MG/NS 100 ML 100 MG/100 ML BAG IVPB ×2 (06:43→17:25)
[2022-10-19] MEDS: UMECLIDINIUM/VILANTEROL 62.5-25 MCG ELLIPTA 1 PUFF INHALATION (07:25)
[2022-10-19] MEDS: LEVALBUTEROL NEB 1.25 MG/3 ML 0.63 MG INHALATION ×3 (07:28→20:49)
[2022-10-19] MEDS: IPRATROPIUM BR 0.02% INH SOLN 0.5 MG/2.5 ML VIAL INHALATION ×3 (07:29→20:49)
--- NOTE | 2022-10-19 09:45 | PM.IMPN ---
Progress Note: A&P Assessment and Plan (1) COPD exacerbation: Code(s): J44.1 - Chronic obstructive pulmonary disease with (acute) exacerbation Status: Acute (2) Tachycardia: Code(s): R00.0 - Tachycardia, unspecified Status: Acute Plan Patient was evaluated for possible accidental ingestion of additional medications but feel that this is less likely. The patient seems to have a exacerbation of his COPD/pulmonary fibrosis. Will place patient on scheduled nebulizer treatments and start Solu-Medrol 60 mg q.8 hours. Will continue monitor. Will continue patient's home oxygen. The ER the patient was may be having some multifocal atrial tachycardia. However EKG demonstrated electronic ventricular pacemaker rhythm. At the time my evaluation patient's heart rate was controlled. No need for further evaluation. Will treat underlying lung pathology. Patient does not have a history of dementia listed but would not be surprised if he does not have some chronic memory loss. Will continue to monitor. Patient may benefit from neuro cognitive evaluation after acute illness has resolved. 10/17/2022 interval history: patient remains confused and unable to provide detail history, CT of head showed old cerebral vascular disese but not acte injury, patient contine to cough and lungs sounds congetest chest x-ray is concerning for pneumonia and mild pulmonary edema, will give patient lasix 20mg x1 IV and started patient on doxycycline and ceftriaxone for possible community acquired pneumonia, will monitor and have PT/OT evaluate the patient. 10/19/2022: History reviewed. Presents to the ER with weakness and concern for possible ingestion of 2 days worth of medication. Patient is a custodial resident. Patient is a poor historian. Noted to be persistently tachycardic labs were unremarkable drops negative ABG with respiratory alkalosis chest x-ray with chronic stable interstitial infiltrates of the mid and lower lungs left greater than right has underlying COPD. Chronic respiratory failure on home oxygen 3 liter/minute. Rheumatoid arthritis on methotrexate diagnosis of pulmonary fibrosis Parkinson's disease RAMONA hyperlipidemia essential tremor history of DVT and PE in 2018 CKD stage 3 carotid artery disease status post endarterectomy on left. CT head showed old cerebral vascular disease with no acute abnormality. Chest x-ray concerning for pneumonia and pulmonary edema. Started on doxycycline on Septra Aczone for community-acquired pneumonia. PT OT to see. Possible COPD exacerbation or fibrosis flare up. And on methylprednisolone. Multifocal tachycardia in the ER paced rhythm currently controlled likely due to underlying lung pathology. Nonischemic cardiomyopathy. Hypokalemic replace and monitor magnesium is okay. Do not resuscitate. Will transition methylprednisolone to oral prednisone today. Labs in a.m. Subjective Date/time seen: 10/19/22 09:45 Interval history: Chief Complaint: Possible unintentional overdose HPI-Narrative: 81-year-old male with a past medical history coronary artery disease, COPD, DVT/PE, essential hypertension and obstructive sleep apnea who presented to the ER via EMS from [facility] with possible ingestion of 2 days worth of medications.? The ingestion reportedly occurred a couple of days ago.? Patient is not on any medications that would be concerning for serious toxicity.? But when the patient arrived to the ER he was noted to be coughing and was tachycardic.? He is on chronic home oxygen at 3-4 L. the patient was alert oriented to person place and year.? He thought the month was June.? He was poor historian regarding recent events.? He repetitively was asking staff for something to eat.? It turns out the patient's was hospitalized also at our facility within the last few days.? I am wondering if the patient's does not help provide care for the patient.? Patient is not noted t
[2022-10-19] MEDS: FOLIC ACID 1 MG TABLET PO (10:02)
[2022-10-19] MEDS: ASPIRIN 81 MG ENTERIC TABLET PO (10:03)
--- NOTE | 2022-10-19 10:49 | PCPTNOTE ---
Patient refused treatment this session. Patient did not give reason why.
[2022-10-19] MEDS: POTASSIUM CHLORIDE 20 MEQ ER TABLET 40 MEQ PO (13:02)
[2022-10-19 13:26] LABS: Hematocrit 39.6 % (42.0-52.0); Hemoglobin 13.1 g/dL (14.0-18.0); Mean Corpuscular HGB Conc 33.1 g/dl (32-36); Mean Corpuscular Hemoglobin 30.4 pg (26-34); Mean Corpuscular Volume 91.9 fl (80-100); Mean Platelet Volume 9.2 fl (7.4-10.4); Platelet Count Result 324 k/mm3 (150-375); Red Blood Count 4.31 M/mm3 (4.6-6.20); Red Cell Distribution Width 17.3 % (11.5-14.5); White Blood Count 13.2 K/mm3 (4.5-10.0)
[2022-10-19] MEDS: ATORVASTATIN 10 MG TABLET PO (17:24)
[2022-10-19] MEDS: predniSONE 20 MG TABLET 40 MG PO (17:25)
[2022-10-19] MEDS: TAMSULOSIN HCL 0.4 MG CAPSULE PO (17:25)
[2022-10-19] MEDS: MIRTAZAPINE SOLTAB 15 MG TAB.DISPER PO (20:20)
[2022-10-20] VITALS (26 sets, daily range): BP systolic 113–166; BP diastolic 57–88; PULSE 72–136; RESP 16–28; TEMP 36.2–36.5; O2SAT 85–97
[2022-10-20] MEDS: IPRATROPIUM BR 0.02% INH SOLN 0.5 MG/2.5 ML VIAL INHALATION ×5 (01:43→20:15)
[2022-10-20] MEDS: LEVALBUTEROL NEB 1.25 MG/3 ML 0.63 MG INHALATION ×5 (01:44→20:12)
[2022-10-20] MEDS: DOXYCYCLINE 100 MG/NS 100 ML 100 MG/100 ML BAG IVPB (05:40)
[2022-10-20] MEDS: LEVOTHYROXINE SODIUM 25 MCG TABLET PO (05:40)
[2022-10-20 05:51] LABS: Hematocrit 34.4 % (42.0-52.0); Hemoglobin 11.2 g/dL (14.0-18.0); Mean Corpuscular HGB Conc 32.6 g/dl (32-36); Mean Corpuscular Hemoglobin 30.1 pg (26-34); Mean Corpuscular Volume 92.5 fl (80-100); Mean Platelet Volume 9.7 fl (7.4-10.4); Platelet Count Result 330 k/mm3 (150-375); Red Blood Count 3.72 M/mm3 (4.6-6.20); Red Cell Distribution Width 16.9 % (11.5-14.5); White Blood Count 11.2 K/mm3 (4.5-10.0)
[2022-10-20 06:00] LABS: Alanine Aminotransferase 30 U/L (6-50); Albumin Level 2.5 g/dL (3.5-5.1); Alkaline Phosphatase 97 U/L (38-126); Anion Gap 2 mmol/L (8-16); Aspartate Amino Transferase 45 U/L (17-59); Bilirubin,Total 0.3 mg/dL (0.2-1.3); Blood Urea Nitrogen 7 mg/dL (9-20); Calcium 7.8 mg/dL (8.4-10.2); Carbon Dioxide 30 mmol/L (22-30); Chloride 101 mmol/L (98-107); Estimated CRCL calculation 97 ml/min; Estimated Glomerular Filt Rate > 60; Glucose 203 mg/dL (65-110); Magnesium 1.8 mg/dL (1.6-2.3); Sodium 133 mmol/L (137-145)
[2022-10-20] MEDS: UMECLIDINIUM/VILANTEROL 62.5-25 MCG ELLIPTA 1 PUFF INHALATION (07:44)
[2022-10-20] MEDS: ASPIRIN 81 MG ENTERIC TABLET PO (08:37)
[2022-10-20] MEDS: FOLIC ACID 1 MG TABLET PO (08:37)
[2022-10-20] MEDS: predniSONE 20 MG TABLET 40 MG PO ×2 (08:37→17:08)
--- NOTE | 2022-10-20 08:51 | PCPTNOTE ---
Patient refused treatment this session. Patient states I can walk without a problem.
--- NOTE | 2022-10-20 09:06 | PCOTNOTE ---
Attempted to see Patient at this time. Patient refused to participate in services, stated, I'm not interested nor need any assistance, I need to get back to my .
[2022-10-20] MEDS: POTASSIUM CHLORIDE 20 MEQ ER TABLET 40 MEQ PO (14:13)
--- NOTE | 2022-10-20 14:22 | PCOTNOTE ---
Attempted to see Patient this P.M. Patient refused to participate in any activity and verbalized, I'm taking a nap, leave me alone .
--- NOTE | 2022-10-20 15:22 | ECG_ITS ---
Measurements Intervals [place] Rate: 136 P: LA: 0 QRS: -7 QRSD: 136 T: 34 QT: 324 QTc: 489 Interpretive Statements ATRIAL FIBRILLATION WITH RAPID VENTRICULAR RESPONSE RIGHT BUNDLE BRANCH BLOCK [120+ ms QRS DURATION, UPRIGHT V1, 40+ ms S IN I/aVL/V4/V5/V6] ABNORMAL ECG COMPARED TO ECG 10/16/2022 11:13:43 ATRIAL FIBRILLATION NOW PRESENT RIGHT BUNDLE-BRANCH BLOCK NOW PRESENT Electronically Signed On 10-21-2022 9:12:48 CDT by Reji Castro M.D.
[2022-10-20] MEDS: FUROSEMIDE INJ 40 MG/4 ML VIAL 20 MG IV PUSH (15:31)
[2022-10-20] MEDS: METOPROLOL TARTRATE INJ 5 MG/5 ML VIAL IV PUSH ×2 (15:54→21:06)
[2022-10-20 16:03] LABS: Alveolar/Arterial O2 Gradient 194.4 mmHg; Base Excess ABG 5.9 mEq/l (+/-2.0); Fractional Inspired Oxygen 40 %; HCO3 ABG 29.4 mEq/l (22.0-26.0); Oxygen Content ABG 16.9 %vol (16.0-22.0); PCO2 ABG 38.7 mmHg (35.0-45.0); PO2 FiO2 Ratio Arterial Blood 1.16 %; Total Hemoglobin 14.2 g/dL (12.0-18.0); pH ABG 7.498 (7.350-7.450)
[2022-10-20 16:05] LABS: Device NASAL CANNULA; Modified Allen's Test Pass; Oxyhemoglobin 85.1 % THb (90.0-100.0); PO2 ABG 46.3 mmHg (80.0-100.0); Site Drawn RIGHT RADIAL
[2022-10-20] MEDS: TAMSULOSIN HCL 0.4 MG CAPSULE PO (17:08)
[2022-10-20] MEDS: ATORVASTATIN 10 MG TABLET PO (17:08)
--- NOTE | 2022-10-20 18:17 | PC.NURSE ---
At 15:20, this nurse went into the patient's room after patient was experiencing tachycardia in the upper 160s-170s on the staffing assistant. Patient had just came back from the bathroom and was visibly short of breath, lung sounds crackly and audible without stethoscope, and patient stated he felt like he could not catch his breath. Vitals were obtained at this point and pulse oximetry was 85% on 3 liters of oxygen. Oxygen titrated up to 6 liters with oxygen saturation going between 87% and 89%. Doctor Michael made aware at this point and orders obtained to give 20 mg of Lasix IV push, get a stat EKG, and readminister breathing treatments Atrovent and Xopenex to patient. EKG showed atrial fibrillation with RVR and a right bundle branch block. Lasix and breathing treatments administered. Patient was still saturating around 89% with heart rate 130-160s on staffing assistant after these treatments. Doctor Michael called again and new orders obtained for 5 mg Lopressor IV push times one and ABGs to be obtained. Lopressor given with improvement in heart rate to 100s. ABGs obtained and three critical results reported to provider. Patient was on 8 liters high flow oxygen after the ABGs obtained continuing to saturate at 89%. BIPAP was suggested to the provider. Provider gave orders for a continuous BIPAP placement for four hours to see if that improves patient's symptoms. BIPAP placed on patient at 16:00 with improvement in work of breathing. Provider came to assess patient around 16:30. BIPAP is to be removed at 20:00 and patient reassessed at this time. Patient currently NPO at this time for suspected aspiration pneumonia with a speech evaluation to be performed tomorrow.
[2022-10-20] MEDS: DORNASE ALFA INH SOLN 1 MG/ML 2.5 ML AMP 2.5 MG INHALATION (20:12)
[2022-10-21] VITALS (20 sets, daily range): BP systolic 95–130; BP diastolic 50–54; PULSE 63–81; RESP 18–24; TEMP 36.2–36.8; O2SAT 90–95
--- NOTE | 2022-10-21 | ECHO_ITS ---
Patient Info Name: Jorge Waldron Age: 81 years : 1940 Gender: Male Ht: 73 in Wt: 154 lbs BSA: 1.89 m2 HR: 60 bpm BP: 114 / 57 mmHg Heart Rhythm: Sinus Rhythm Technical Quality: Fair Exam Date: 10/21/2022 8:13 AM Exam Location: [facility] Pulmonary Patient Status: Inpatient Admit Date: 10/18/2022 Staff Ordering Physician: Benoit Michael MD Slackline Operator: [id number] Attending Provider: Dev Beach MD Exam Type: CA echo doppler color flow Study Info Indications - shortness of breath Complete two-dimensional, color flow and Doppler transthoracic echocardiogram is performed. Summary 1. Complete two-dimensional, color flow and Doppler transthoracic echocardiogram is performed. 2. Left ventricular chamber dimension is mildly enlarged. 3. Left ventricular systolic function is severely reduced, estimated at 25-30%. 4. There is mildly increased left ventricular wall thickness. 5. The left ventricular diastolic function is grade I diastolic dysfunction. 6. The mid inferoseptal, and mid anteroseptal are akinetic. 7. The apex, inferior wall, anterior wall, anterolateral wall, inferolateral wall, basal inferoseptal, and basal anteroseptal are hypokinetic. 8. Left atrial chamber dimension is mildly enlarged. 9. There is mild mitral valve regurgitation. 10. Mild pulmonary hypertension, estimated pulmonary arterial systolic pressure is 37 mmHg. 11. There is mild tricuspid valve regurgitation. Left Ventricle Left ventricular chamber dimension is mildly enlarged. Left ventricular systolic function is severely reduced, estimated at 25-30%. There is mildly increased left ventricular wall thickness. The left ventricular diastolic function is grade I diastolic dysfunction. The mid inferoseptal, and mid anteroseptal are akinetic. The apex, inferior wall, anterior wall, anterolateral wall, inferolateral wall, basal inferoseptal, and basal anteroseptal are hypokinetic. Right Ventricle Right ventricular chamber dimension is normal. Right ventricular systolic function is normal. Left Atria Left atrial chamber dimension is mildly enlarged. Right Atria Right atrial chamber dimension is normal. Atrial Septum Intact interatrial septum visualized by color flow imaging. Aortic Valve The aortic valve is trileaflet. There is mild aortic valve sclerosis. There is no aortic valve stenosis. There is trace aortic valve regurgitation. Pulmonic Valve The pulmonic valve is normal. There is no pulmonic valve stenosis. There is trace pulmonic regurgitation. Mitral Valve The mitral valve has normal leaflets. There is no mitral valve stenosis. There is mild mitral valve regurgitation. Tricuspid Valve The tricuspid valve leaflets are normal. There is no significant tricuspid valve stenosis. There is mild tricuspid valve regurgitation. Mild pulmonary hypertension, estimated pulmonary arterial systolic pressure is 37 mmHg. Pericardium/Pleural The pericardium appears normal. There is no pericardial effusion. Inferior Vena Cava Normal inferior vena cava with >50% collapse upon inspiration consistent with elevated right atrial pressure, 10 mmHg. Aorta The aortic root size at the sinus of Valsalva is normal. Left Ventricular Outflow Tract Name Value Normal LVOT 2D LVOT Diameter 2.1 cm
[2022-10-21] MEDS: IPRATROPIUM BR 0.02% INH SOLN 0.5 MG/2.5 ML VIAL INHALATION ×4 (01:37→19:41)
[2022-10-21] MEDS: LEVALBUTEROL NEB 1.25 MG/3 ML 0.63 MG INHALATION ×4 (01:37→19:41)
[2022-10-21 06:07] LABS: Hemoglobin 11.8 g/dL (14.0-18.0); Mean Corpuscular HGB Conc 31.9 g/dl (32-36); Mean Corpuscular Hemoglobin 29.9 pg (26-34); Mean Corpuscular Volume 93.7 fl (80-100); Mean Platelet Volume 9.5 fl (7.4-10.4); Platelet Count Result 359 k/mm3 (150-375); Red Blood Count 3.95 M/mm3 (4.6-6.20); Red Cell Distribution Width 17.2 % (11.5-14.5); White Blood Count 13.9 K/mm3 (4.5-10.0)
[2022-10-21 06:27] LABS: Alanine Aminotransferase 31 U/L (6-50); Albumin Level 2.5 g/dL (3.5-5.1); Alkaline Phosphatase 102 U/L (38-126); Aspartate Amino Transferase 41 U/L (17-59); Bilirubin,Total 0.4 mg/dL (0.2-1.3); Blood Urea Nitrogen 10 mg/dL (9-20); Carbon Dioxide > 40 mmol/L (22-30); Chloride 99 mmol/L (98-107); Estimated CRCL calculation 83 ml/min; Estimated Glomerular Filt Rate > 60; Glucose 134 mg/dL (65-110); Magnesium 1.8 mg/dL (1.6-2.3); Potassium 4.9 mmol/L (3.4-5.0); Sodium 138 mmol/L (137-145)
[2022-10-21] MEDS: DORNASE ALFA INH SOLN 1 MG/ML 2.5 ML AMP 2.5 MG INHALATION ×2 (09:13→19:45)
--- NOTE | 2022-10-21 13:15 | PCSTNOTE ---
Bedside swallowing evaluation completed. Patient coughed when given trials of thin liquid by cup and by straw. Vocal quality was clear. No signs of aspiration with moderately thickened liquids by cup, pureed consistency food by spoon, and solid consistency food by hand (small piece of rob cracker coated in applesauce for moisture). Patient educated on compensatory strategy of chin tuck, able to return demonstrate with 100 percent accuracy. Please note that silent aspiration cannot be ruled out at bedside. Recommendations: minced moist diet and moderately thickened liquids (level 3). No speech therapy recommended at this time. Thank you for the referral of this patient.
[2022-10-21] MEDS: ASPIRIN 81 MG ENTERIC TABLET PO (14:07)
[2022-10-21] MEDS: FOLIC ACID 1 MG TABLET PO (14:07)
[2022-10-21] MEDS: predniSONE 20 MG TABLET 40 MG PO (17:27)
[2022-10-21] MEDS: TAMSULOSIN HCL 0.4 MG CAPSULE PO (17:27)
[2022-10-21] MEDS: ATORVASTATIN 10 MG TABLET PO (17:28)
[2022-10-21] MEDS: UMECLIDINIUM/VILANTEROL 62.5-25 MCG ELLIPTA 1 PUFF INHALATION (19:44)
[2022-10-21] MEDS: AMOXICILLIN/CLAVULANATE K 875-125 MG TAB 1 TABLET PO (20:05)
[2022-10-21] MEDS: guaiFENesin 12 HR 600 MG TABCR PO (20:06)
[2022-10-21] MEDS: METOPROLOL TARTRATE 12.5 MG TABLET PO (20:06)
[2022-10-21] MEDS: MIRTAZAPINE SOLTAB 15 MG TAB.DISPER PO (20:06)
[2022-10-22] VITALS (21 sets, daily range): BP systolic 101–119; BP diastolic 49–60; PULSE 60–92; RESP 16–20; TEMP 36.2–36.8; O2SAT 90–95
[2022-10-22] MEDS: IPRATROPIUM BR 0.02% INH SOLN 0.5 MG/2.5 ML VIAL INHALATION ×4 (01:40→20:00)
[2022-10-22] MEDS: LEVALBUTEROL NEB 1.25 MG/3 ML 0.63 MG INHALATION ×4 (01:40→19:59)
[2022-10-22] MEDS: LEVOTHYROXINE SODIUM 25 MCG TABLET PO (05:30)
[2022-10-22 05:37] LABS: Hematocrit 35.8 % (42.0-52.0); Hemoglobin 11.7 g/dL (14.0-18.0); Mean Corpuscular HGB Conc 32.7 g/dl (32-36); Mean Corpuscular Hemoglobin 30.4 pg (26-34); Mean Platelet Volume 9.3 fl (7.4-10.4); Platelet Count Result 308 k/mm3 (150-375); Red Blood Count 3.85 M/mm3 (4.6-6.20); Red Cell Distribution Width 17.4 % (11.5-14.5); White Blood Count 11.5 K/mm3 (4.5-10.0)
[2022-10-22 06:04] LABS: Alanine Aminotransferase 29 U/L (6-50); Albumin Level 2.5 g/dL (3.5-5.1); Alkaline Phosphatase 103 U/L (38-126); Anion Gap 0 mmol/L (8-16); Aspartate Amino Transferase 36 U/L (17-59); Bilirubin,Total 0.5 mg/dL (0.2-1.3); Blood Urea Nitrogen 9 mg/dL (9-20); Calcium 7.9 mg/dL (8.4-10.2); Carbon Dioxide 35 mmol/L (22-30); Chloride 99 mmol/L (98-107); Estimated CRCL calculation 97 ml/min; Estimated Glomerular Filt Rate > 60; Glucose 125 mg/dL (65-110); Potassium 4.2 mmol/L (3.4-5.0); Sodium 134 mmol/L (137-145)
[2022-10-22 06:10] LABS: Magnesium 1.9 mg/dL (1.6-2.3)
[2022-10-22] MEDS: UMECLIDINIUM/VILANTEROL 62.5-25 MCG ELLIPTA 1 PUFF INHALATION (07:09)
[2022-10-22] MEDS: DORNASE ALFA INH SOLN 1 MG/ML 2.5 ML AMP 2.5 MG INHALATION ×2 (07:09→20:00)
--- NOTE | 2022-10-22 09:28 | PM.CNCAR ---
Assessment and Plan Assessment and plan (1) Cardiomyopathy: Code(s): I42.9 - Cardiomyopathy, unspecified Status: Acute Assessment and Plan: Uncertain if this is pacemaker mediated cardiomyopathy versus ischemia versus other. Regardless will initiate standard CHF treatment. Will start him on carvedilol 3.125 mg p.o. b.i.d.. And low-dose Entresto 12/13 mg p.o. b.i.d. and up titrate as able. Will start furosemide 20 mg IV daily and transition oral the next day or 2. He will need further workup for ischemia once more stable. BMP tomorrow (2) COPD (chronic obstructive pulmonary disease): Code(s): J44.9 - Chronic obstructive pulmonary disease, unspecified Status: Acute Assessment and Plan: Continue treatment (3) Pacemaker: Code(s): Z95.0 - Presence of cardiac pacemaker Status: Acute Assessment and Plan: The pacing (4) Acute systolic (congestive) heart failure: Code(s): I50.21 - Acute systolic (congestive) heart failure Status: Acute Assessment and Plan: As above. New onset. EF 25-30% by most recent echocardiogram. History of Present Illness History of Present Illness Consult date/time: 10/22/22 09:28 Requesting physician: Benoit Michael MD Reason For Visit: COPD, Tachycardia Narrative: Reason for consultation: Abnormal echo, AFib, cardiomyopathy Date of service 10/22/2022 Requesting provider: Dr. Michael History: Patient is an 81-year-old male who has a history of coronary disease, COPD, DVT, hypertension, sleep apnea, pacemaker implantation who presented to the hospital with worsening shortness of breath and chest pain. He also had been coughing. He is on chronic home oxygen of 3-4 L but he had progressively worsening shortness of breath to the point he required hospitalization. Echocardiogram was performed which showed a reduction in ejection fraction. Cardiology consultation is therefore requested. He still has some residual chest pain at present also. He denies any syncope, presyncope, paroxysmal nocturnal dyspnea, orthopnea. He has has occasional palpitations. No edema. Review of Systems Review of Systems: All systems reviewed & are unremarkable except as noted in HPI and below Constitutional: Constitutional: Denies body ache(s) Eyes: Eyes: Denies blurry vision ENT: Reports Normal hearing present Cardiovascular: Cardiovascular: Reports chest pain and Denies pedal edema Respiratory: Respiratory: Reports dyspnea Gastrointestinal: Gastrointestinal: Denies abdominal pain Genitourinary: Genitourinary: Denies hematuria and Denies urinary frequency Musculoskeletal: Musculoskeletal: Denies back pain Integumentary/Breasts: Skin/Breast: Denies erythema Neurologic: Denies Abnormal speech present Psychiatric: Psychiatric: Denies confusion Endocrine: Endocrine: Denies excessive sweating Hematologic/Lymphatic: Hematologic/Lymphatic: Denies easy bleeding Allergic/Immunologic: Allergic/Immunologic: Denies GI upset with certain foods PMFSH Past Medical History Medical History Abdominal aortic aneurysm Status post repair. Acute respiratory failure with hypoxia Ataxia BCC (basal cell carcinoma), chest Benign essential tremor Benign prostatic hyperplasia BMI 21.0-21.9, adult Carotid artery disease Status post left carotid endarterectomy in December 2017. Carotid stenosis, left Chronic anemia With history of blood transfusion. CKD (chronic kidney disease) stage 3, GFR 30-59 ml/min COPD (chronic obstructive pulmonary disease) PFTs in 2018 demonstrated severe disease. Essential tremor History of DVT of lower extremity Right popliteal DVT diagnosed March 18, 2018. History of kidney stones History of pulmonary embolism Right upper lobe PE diagnosed March 17, 2018. Hyperlipidemia Left rib fracture Sustained in a fall several weeks ago. Mass of lung
[2022-10-22] MEDS: AMOXICILLIN/CLAVULANATE K 875-125 MG TAB 1 TABLET PO ×2 (10:21→20:56)
[2022-10-22] MEDS: ASPIRIN 81 MG ENTERIC TABLET PO (10:21)
[2022-10-22] MEDS: guaiFENesin 12 HR 600 MG TABCR PO ×2 (10:22→20:55)
[2022-10-22] MEDS: FUROSEMIDE INJ 40 MG/4 ML VIAL 20 MG IV PUSH (10:22)
[2022-10-22] MEDS: FOLIC ACID 1 MG TABLET PO (10:22)
[2022-10-22] MEDS: predniSONE 20 MG TABLET 40 MG PO ×2 (10:22→17:18)
[2022-10-22] MEDS: ATORVASTATIN 10 MG TABLET PO (17:18)
[2022-10-22] MEDS: TAMSULOSIN HCL 0.4 MG CAPSULE PO (17:18)
[2022-10-22] MEDS: MIRTAZAPINE SOLTAB 15 MG TAB.DISPER PO (20:55)
[2022-10-22] MEDS: SACUBITRIL/VALSARTAN 12-13 MG TABLET 1 TAB PO (20:55)
[2022-10-22] MEDS: carvediloL 3.125 MG TABLET PO (20:55)
[2022-10-23] VITALS (23 sets, daily range): BP systolic 103–132; BP diastolic 51–94; PULSE 61–91; RESP 16–23; TEMP 36.4–36.6; O2SAT 91–98
[2022-10-23] MEDS: LEVALBUTEROL NEB 1.25 MG/3 ML 0.63 MG INHALATION ×4 (01:38→20:06)
[2022-10-23] MEDS: IPRATROPIUM BR 0.02% INH SOLN 0.5 MG/2.5 ML VIAL INHALATION ×4 (01:38→20:06)
[2022-10-23] MEDS: LEVOTHYROXINE SODIUM 25 MCG TABLET PO (06:22)
[2022-10-23 06:30] LABS: Hematocrit 36.2 % (42.0-52.0); Hemoglobin 11.8 g/dL (14.0-18.0); Mean Corpuscular HGB Conc 32.6 g/dl (32-36); Mean Corpuscular Hemoglobin 30.4 pg (26-34); Mean Corpuscular Volume 93.3 fl (80-100); Platelet Count Result 334 k/mm3 (150-375); Red Blood Count 3.88 M/mm3 (4.6-6.20); Red Cell Distribution Width 17.3 % (11.5-14.5); White Blood Count 13.1 K/mm3 (4.5-10.0)
[2022-10-23 06:43] LABS: Alanine Aminotransferase 30 U/L (6-50); Albumin Level 2.4 g/dL (3.5-5.1); Alkaline Phosphatase 92 U/L (38-126); Anion Gap -1 mmol/L (8-16); Aspartate Amino Transferase 37 U/L (17-59); Bilirubin,Total 0.4 mg/dL (0.2-1.3); Blood Urea Nitrogen 7 mg/dL (9-20); Calcium 7.5 mg/dL (8.4-10.2); Carbon Dioxide 36 mmol/L (22-30); Chloride 97 mmol/L (98-107); Estimated CRCL calculation 118 ml/min; Estimated Glomerular Filt Rate > 60; Glucose 161 mg/dL (65-110); Magnesium 1.8 mg/dL (1.6-2.3); Potassium 3.8 mmol/L (3.4-5.0); Sodium 132 mmol/L (137-145)
[2022-10-23] MEDS: UMECLIDINIUM/VILANTEROL 62.5-25 MCG ELLIPTA 1 PUFF INHALATION (08:46)
[2022-10-23] MEDS: FUROSEMIDE INJ 40 MG/4 ML VIAL 20 MG IV PUSH (09:05)
[2022-10-23] MEDS: ASPIRIN 81 MG ENTERIC TABLET PO (09:05)
[2022-10-23] MEDS: SACUBITRIL/VALSARTAN 12-13 MG TABLET 1 TAB PO ×2 (09:05→20:32)
[2022-10-23] MEDS: predniSONE 20 MG TABLET 40 MG PO (09:05)
[2022-10-23] MEDS: FOLIC ACID 1 MG TABLET PO (09:05)
[2022-10-23] MEDS: AMOXICILLIN/CLAVULANATE K 875-125 MG TAB 1 TABLET PO (09:05)
[2022-10-23] MEDS: guaiFENesin 12 HR 600 MG TABCR PO ×2 (09:05→20:26)
[2022-10-23] MEDS: carvediloL 3.125 MG TABLET PO (09:05)
--- NOTE | 2022-10-23 10:02 | PCPTNOTE ---
Patient refused treatment this session due to patient wanting to rest. Educated patient on the importance of therapy and participating in PT, patient continued to refuse.
--- NOTE | 2022-10-23 13:41 | PCOTNOTE ---
Patient refused treatment this session due to wanting to rest patient was educated on importance of therapy services. Patient again declined.
--- NOTE | 2022-10-23 14:01 | PCRCNOTE ---
HOME O2 EVAL PLACED ON HOLD, PT SAO2 85% ON 5L. THIS IS NEW TO PT'S CONDITION.
--- NOTE | 2022-10-23 14:45 | PM.PNCARD ---
Progress Note: A&P Assessment and Plan (1) Cardiomyopathy: Code(s): I42.9 - Cardiomyopathy, unspecified Status: Acute Plan Elderly gentleman with cardiomyopathy and reduced LV systolic function. Has been receiving care elsewhere appears to be primarily by the electrophysiology physician in the practice. He has been started on cautious low doses of carvedilol and Entresto yesterday by my partner. Systolic blood pressure is tolerating the these agents so far. Continue to to cautiously introduce guideline directed medical therapy for LV systolic dysfunction. Lee No MD [facility] Subjective Date/time seen: Date of service: 10/23/22 14:45 Interval history: Follow-up visit in this 81-year-old man with: Apparent history of cardiomyopathy with left ventricular systolic dysfunction has been followed by cardiology/electrophysiology elsewhere. Appears to have a Bi V pacemaker device chronically implanted. Records indicate this is a [employer] device. Has had PVC ablation performed previously according to the notes in the chart. The chart does not indicate any history of coronary disease. Patient enters the hospital here with shortness of breath echocardiogram does show significantly reduced LV systolic function. Patient has been started on modest doses of carvedilol and Entresto yesterday by my partner. Exam Const: Other: Elderly gentleman resting comfortably in bed with BiPAP device on upon awakening appears to be comfortable and denies shortness of breath right now HENMT: Mouth: Yes moist mucous membranes Eyes: Sclera: sclerae normal Neck: Neck: supple Resp: Effort & Inspection: normal respiratory effort Other: Patient does have some audible bibasilar rales noted on posterior auscultation Cardio: Rate: regular rate Rhythm: regular rhythm Other: Paced rhythm GI: GI Palp: Yes Soft to palpation Auscultation: normal bowel sounds Skin: General skin exam: normal color Neuro: Other: Alert and oriented following awakening from sleep Extrem: Other: No significant peripheral edema Objective Data Vital Signs Vital Signs: Vital Signs - 24 hr 10/22/22 16:00 10/22/22 20:01 10/22/22 20:01 Temperature Pulse Rate 84 74 82 Respiratory Rate 20 Blood Pressure Pulse Oximetry 92 Oxygen Delivery High Flow Nasal Cannula Oxygen Flow Rate 3.5 10/22/22 20:19 10/22/22 20:48 10/22/22 20:55 Temperature 36.8 C Pulse Rate 85 80 80 Respiratory Rate 20 16 Blood Pressure 102/49 L Pulse Oximetry 92 Oxygen Delivery Oxygen Flow Rate 10/22/22 20:00 10/22/22 20:00 10/23/22 00:00 Temperature Pulse Rate 72 67 Respiratory Rate Blood Pressure Pulse Oximetry 92 Oxygen Delivery Nasal Cannula Oxygen Flow Rate 3.5 10/22/22 22:20 10/23/22 01:38 10/23/22 01:46 Temperature Pulse Rate 92 81 80 Respiratory Rate 20 20 20 Blood Pressure Pulse Oximetry 95 Oxygen Delivery BiPAP Oxygen Flow Rate 10/23/22 04:00 10/23/22 05:33 10/23/22 08:46 Temperature 36.4 C Pulse Rate 61 70 86 Respiratory Rate 20 20 Blood Pressure 132/67 Pulse Oximetry 92 Oxygen Delivery Oxygen Flow Rate 10/23/22 08:58 10/23/22 09:05 10/23/22 09:00 Temperature Pulse Rate 78 77 Respiratory Rate 20 Blood Pressure 120/52 L Pulse Oximetry Oxygen Delivery Oxygen Flow Rate 10/23/22 08:45 10/23/22 08:00 10/23/22 12:00 Temperature Pulse Rate 61 77 Respiratory Rate Blood Pressure Pulse Oximetry 92 Oxygen Delivery Nasal Cannula Oxygen Flow Rate 3 10/23/22 13:23 10/23/22 14:00 Temperature 36.6 C Pulse Rate 72 91 Respiratory Rate 16 23 H Blood Pressure 105/94 H Pulse Oximetry 98 94 Oxygen Delivery BiPAP Oxygen Flow Rate Intake/Output Intake/Output: Intake & Output 10/20/22 10/21/22 10/22/22 10/23/22 23:59 23:59 23:59 23:59 Intake Total 7841 046 7077 462 Output
[2022-10-23] MEDS: ATORVASTATIN 10 MG TABLET PO (17:51)
[2022-10-23] MEDS: TAMSULOSIN HCL 0.4 MG CAPSULE PO (17:51)
[2022-10-23] MEDS: MIRTAZAPINE SOLTAB 15 MG TAB.DISPER PO (20:26)
[2022-10-24] VITALS (34 sets, daily range): BP systolic 71–134; BP diastolic 40–61; PULSE 62–129; RESP 18–33; TEMP 36.4–37; O2SAT 80–95; BMI 20.3
--- NOTE | 2022-10-24 | ECHO_ITS ---
Patient Info Name: Jorge Waldron Age: 81 years : 1940 Gender: Male Ht: 73 in Wt: 154 lbs BSA: 1.89 m2 HR: 125 bpm BP: 117 / 45 mmHg Heart Rhythm: Sinus Rhythm Technical Quality: Fair Exam Date: 10/24/2022 4:31 PM Exam Location: [facility] Pulmonary Patient Status: Inpatient Admit Date: 10/18/2022 Staff Ordering Physician: Lee Adams MD Supervisor Pleating: Shreya Rossi RDCS Attending Provider: Dev Beach MD Referring Physician: Bryan WHIPPLE; Exam Type: CA echo limited w bubble study Study Info Indications - hypoxia Limited two-dimensional transthoracic echocardiogram is performed with agitated saline. Contrast/Agitated Saline Contrast/Ag. Saline: Agitated Saline Amount: 20.00 ml Administered By: Maryam Lange RN Existing IV Access: Yes IV Access Condition: patent with no signs of infiltration Summary 1. Limited bubble study to assess for intracardiac shunting. 2. No evidence of intracardiac shunting while on BiPAP. 3. Hyperdynamic left ventricular function, EF greater than 70%. 4. Tachycardia, probably sinus tachycardia. Report Signatures
[2022-10-24 05:34] LABS: Hematocrit 40.9 % (42.0-52.0); Hemoglobin 12.9 g/dL (14.0-18.0); Mean Corpuscular HGB Conc 31.5 g/dl (32-36); Mean Corpuscular Hemoglobin 29.6 pg (26-34); Mean Corpuscular Volume 93.8 fl (80-100); Mean Platelet Volume 9.3 fl (7.4-10.4); Platelet Count Result 394 k/mm3 (150-375); Red Blood Count 4.36 M/mm3 (4.6-6.20); Red Cell Distribution Width 17.2 % (11.5-14.5); White Blood Count 12.5 K/mm3 (4.5-10.0)
[2022-10-24] MEDS: LEVOTHYROXINE SODIUM 25 MCG TABLET PO (05:42)
[2022-10-24] MEDS: IPRATROPIUM BR 0.02% INH SOLN 0.5 MG/2.5 ML VIAL INHALATION ×3 (07:52→21:12)
[2022-10-24] MEDS: LEVALBUTEROL NEB 1.25 MG/3 ML 0.63 MG INHALATION ×3 (07:53→21:12)
[2022-10-24] MEDS: UMECLIDINIUM/VILANTEROL 62.5-25 MCG ELLIPTA 1 PUFF INHALATION (07:53)
[2022-10-24] MEDS: predniSONE 20 MG TABLET 40 MG PO (08:56)
[2022-10-24] MEDS: FOLIC ACID 1 MG TABLET PO (08:57)
[2022-10-24] MEDS: guaiFENesin 12 HR 600 MG TABCR PO (08:57)
[2022-10-24] MEDS: SACUBITRIL/VALSARTAN 12-13 MG TABLET 1 TAB PO (08:57)
[2022-10-24] MEDS: ASPIRIN 81 MG ENTERIC TABLET PO (08:57)
[2022-10-24] MEDS: carvediloL 3.125 MG TABLET PO (08:57)
[2022-10-24] MEDS: FUROSEMIDE INJ 40 MG/4 ML VIAL 20 MG IV PUSH ×2 (08:57→17:24)
--- NOTE | 2022-10-24 09:21 | PCOTNOTE ---
The patient treatment was not able to be completed on 10/24/2022 due to Continuous B-PAP. Patient O2 stat 80% @ 15 L.
[2022-10-24 10:15] LABS: Alanine Aminotransferase 32 U/L (6-50); Albumin Level 2.4 g/dL (3.5-5.1); Alkaline Phosphatase 92 U/L (38-126); Anion Gap 0 mmol/L (8-16); Aspartate Amino Transferase 35 U/L (17-59); Bilirubin,Total 0.3 mg/dL (0.2-1.3); Blood Urea Nitrogen 8 mg/dL (9-20); Calcium 7.8 mg/dL (8.4-10.2); Carbon Dioxide 38 mmol/L (22-30); Chloride 94 mmol/L (98-107); Estimated CRCL calculation 97 ml/min; Estimated Glomerular Filt Rate > 60; Glucose 107 mg/dL (65-110); Magnesium 1.8 mg/dL (1.6-2.3); Potassium 3.6 mmol/L (3.4-5.0); Sodium 132 mmol/L (137-145)
--- NOTE | 2022-10-24 12:42 | PM.CNPUL ---
Assessment and Plan Assessment and plan (1) Respiratory failure with hypoxia: Code(s): J96.91 - Respiratory failure, unspecified with hypoxia Status: Acute Assessment and Plan: Patient with a history of tobacco use, restrictive lung disease, untreated obstructive sleep apnea, rheumatoid arthritis on methotrexate, chronic hypoxemic respiratory failure on no oxygen at rest and 2 with ambulation per last clinic visit. Patient was admitted on 10/16/2022 and has been treated for pneumonia with doxycycline, ceftriaxone and Augmentin for 7 days and a COPD exacerbation with steroids for 7 days, bronchodilators, guaifenesin. He has also been found to have a new cardiomyopathy and has been treated with Lasix and entresto. Regarding his worsening hypoxemia: I have ordered a chest x-ray, I will obtain a D-dimer and if this is positive obtain a CT angiogram of the chest. If his D-dimer is negative I will order CT of the chest to assess for worsening restrictive lung disease. I will obtain a echo with bubble study to exclude a right to left shunt. he is afebrile with decreasing white blood cell count and no new phlegm production. Patient does not appear grossly fluid overloaded I will order a BNP. He has received Lasix today. There is no wheezing at this point and I do not feel that systemic steroids are needed. The patient is currently on BiPAP rate of 16, pressures 10/5, inspiratory time 0.95, rise of 3 and 90% FiO2. I will order a blood gas to assess for hypercarbia. Recommend transfer to higher level of care, IMU. Patient is DNR. Discussed with Dr. Villar, will follow with you. History of Present Illness History of Present Illness Consult date: 10/24/22 Chief complaint: COPD, Tachycardia Narrative: 10/24/2022: This is a new pulmonary consult for COPD with hypoxemic respiratory failure. 81-year-old with history of rheumatoid arthritis with positive rheumatoid factor on methotrexate (first documented in our EMR on 04/12/2013), nonischemic cardiomyopathy, COPD and restrictive lung disease (combined abnormality on PFTs on 04/25/2021 with moderate obstructive abnormality and a mild restrictive abnormality resulting in a moderately severe decreased FEV1 with FEV1 1.67 L, 54% predicted, DLCO corrected for alveolar volume 38% predicted), untreated obstructive sleep apnea, hypertension, dyslipidemia, basal cell skin cancer, history of DVT and PE, pacemaker, bilateral carotid artery stenosis, and aortic valve regurgitation.? Patient followed in the Pulmonary Clinic and last seen on 10/06/2022: From this note Patient was admitted 07/02-07/06 for sepsis, pneumonia, AMS. CT of the chest on admission showed no PE but showed right lower lobe pneumonia and small right pleural effusion. Sepsis related to PNA. He was treated with Vancomycin, cefepime and azithromycin. He was weaned to room air. He still required O2 at night and with activity. Patient had a subacute hip fx in August in [facility]; went through PT. Patient reports his COPD has been stable. Patient reports a daily cough that is productive, able to expectorate most times. Sputum is small amount and clear. Denies hemoptysis, chest pains/tightness, wheezing, fever, or nighttime breathing issues. He is maintained on Anoro. Does not take this daily, maybe 2x/week if he remembers. He isn't sure if he feels it to work, hard to take a breath in at times. Patient uses 2L O2 27/11. Patient stopped using CPAP 1> year ago as it aggravated his sleep. Son is trying to get him to be more active. He quit smoking 3 months ago d/t facility requirements (30 PY). CAT score 23/40. BP is soft today. Denies dizziness, lightheadedness, or syncopal episodes. Clinic plan: continue Anoro Ellipta q.day, continue no oxygen at rest, 2 L with activity and sleep. Continue smoking cessation, patient quit 3 months ago. Follow-up in 6 months. 10/16/2022: Patient presented to the emergency depa
--- NOTE | 2022-10-24 14:02 | PM.PNCARD ---
Progress Note: A&P Assessment and Plan (1) Acute systolic (congestive) heart failure: Code(s): I50.21 - Acute systolic (congestive) heart failure Status: Acute Assessment and Plan: Echocardiogram 10/21/2022 shows LVEF 25-30%, akinesis of the mid inferoseptal and mid anteroseptal, hypokinesis of the apex, inferior wall, anterior wall, anterolateral wall, inferolateral wall, basal inferoseptal and basal anteroseptal. Has been started on Entresto and Coreg this admission. Continue with Coreg 3.125mg BID. Continue with Entresto 12/13mg BID. Will add Aldactone. Stop IV Lasix and transition to oral. Will eventually need ischemic evaluation, likely as outpatient. (2) COPD exacerbation: Code(s): J44.1 - Chronic obstructive pulmonary disease with (acute) exacerbation Status: Acute Assessment and Plan: Continue treatment as per primary team. Pulmonary has been consulted. (3) Pacemaker: Code(s): Z95.0 - Presence of cardiac pacemaker Status: Acute Assessment and Plan: Ventricular paced on tele Subjective Date/time seen: 10/24/22 14:02 Interval history: Reason for visit: Congestive heart failure HPI: Patient is an 81-year-old male who has a history of coronary disease, COPD, DVT, hypertension, sleep apnea, pacemaker implantation who presented to the hospital with worsening shortness of breath and chest pain.? He also had been coughing.? He is on chronic home oxygen of 3-4 L but he had progressively worsening shortness of breath to the point he required hospitalization.? Echocardiogram was performed which showed a reduction in ejection fraction.? Cardiology consultation is therefore requested.? He still has some residual chest pain at present also.? He denies any syncope, presyncope, paroxysmal nocturnal dyspnea, orthopnea.? He has has occasional palpitations.? No edema. Date of service 10/23: Follow-up visit in this 81-year-old man with: Apparent history of cardiomyopathy with left ventricular systolic dysfunction has been followed by cardiology/electrophysiology elsewhere.? Appears to have a Bi V pacemaker device chronically implanted.? Records indicate this is a [employer] device.? Has had PVC ablation performed previously according to the notes in the chart.? The chart does not indicate any history of coronary disease.? Patient enters the hospital here with shortness of breath echocardiogram does show significantly reduced LV systolic function.? Patient has been started on modest doses of carvedilol and Entresto yesterday by my partner. Date of service 10/24: Patient states he is feeling a little bit better. On BIPAP although CXR looks improved. No chest pain. Review of Systems Review of Systems: 8 point ROS obtained. Negative, unless stated in HPI. Exam Const: General: comfortable and no acute distress HENMT: Mouth: Yes moist mucous membranes Eyes: General: appearance normal, both eyes and all related structures Sclera: sclerae normal Neck: Neck: supple Resp: Effort & Inspection: normal respiratory effort Auscultation: diminished lung sounds Other: On BIPAP Cardio: Rate: regular rate Rhythm: regular rhythm Heart sounds: no murmurs Skin: General skin exam: normal color Neuro: Speech: normal speech Extrem: General: normal to inspection Psych: Mental Status: mental status grossly normal Affect: normal affect Objective Data Vital Signs Vital Signs: Vital Signs - 24 hr 10/23/22 15:45 10/23/22 15:54 10/23/22 15:35 Temperature Pulse Rate 75 76 75 Respiratory Rate 18 20 Blood Pressure Pulse Oximetry 91 Oxygen Delivery Oxygen Flow Rate Fraction of Inspired Oxygen 10/23/22 16:00 10/23/22 20:09 10/23/22 20:10 Temperature Pulse Rate 78 73 73 Respiratory Rate 18 18 Blood Pressure Pulse Oximetry 92 Oxygen Delivery Nasal Cannula Oxygen Flow Rate 4 Fraction of Inspired Oxygen 36 10/23/22 20:19 06
--- NOTE | 2022-10-24 15:30 | PC.NURSE ---
Family at bedside. Fig Caprifier updated family on patient situation and transfer to new unit.
[2022-10-24 16:28] LABS: NT Pro B Type Natriuretic Pept 3810 pg/mL (19.9-100)
[2022-10-24 16:41] LABS: D Dimer 11.41 ug/mL (<0.48)
--- NOTE | 2022-10-24 16:48 | ECG_ITS ---
Measurements Intervals [place] Rate: 126 P: SD: 366 QRS: 35 QRSD: 128 T: 69 QT: 334 QTc: 484 Interpretive Statements RHYTHM INDETERMINATE, POSSIBLY ATRIAL FIBRILLATION POSSIBLE eLECTRONIC VENTRICULAR PACEMAKER -- CONTOUR ANALYSIS BASED ON INTRINSIC RHYTHM RIGHT BUNDLE BRANCH BLOCK [120+ ms QRS DURATION, UPRIGHT V1, 40+ ms S IN I/aVL/V4/V5/V6] ST DEPRESSION, CONSIDER SUBENDOCARDIAL INJURY [0.1+ mV ST DEPRESSION] COMPARED TO ECG 10/20/2022 15:45:47 NO SIGNIFICANT CHANGES Electronically Signed On 10-24-2022 18:29:09 CDT by Ina Corona M.D.
--- NOTE | 2022-10-24 17:32 | PC.NURSE ---
This patient, Jorge Waldron, was transferred to [facility] on 10/24/22 at 1732. Personal belongings sent with patient. Report given to Toyna. Appropriate documentation sent with patient.
--- NOTE | 2022-10-24 17:50 | PC.NURSE ---
This patient, Jorge Waldron, was received from [ [phone]] on 10/24/22 at 1720. Patient/family oriented to unit policies and routines
[2022-10-24 17:52] LABS: Alveolar/Arterial O2 Gradient 621.2 mmHg; Base Excess ABG 9.4 mEq/l (+/-2.0); Fractional Inspired Oxygen 100 %; HCO3 ABG 32.8 mEq/l (22.0-26.0); Oxygen Content ABG 18.6 %vol (16.0-22.0); Oxygen Saturation ABG 90.2 % (95.0-100.0); Oxyhemoglobin 88.9 % THb (90.0-100.0); PCO2 ABG 40.1 mmHg (35.0-45.0); PO2 ABG 51.7 mmHg (80.0-100.0); PO2 FiO2 Ratio Arterial Blood 0.52 %; Total Hemoglobin 14.9 g/dL (12.0-18.0)
[2022-10-24 17:54] LABS: Device NON-INVASIVE VENT; Modified Allen's Test Pass; Site Drawn RIGHT RADIAL; pH ABG 7.531 (7.350-7.450)
[2022-10-24 17:55] LABS: Non-Invasive Expiratory Pressure 5 CMH2O; Non-Invasive Inspiratory Pressure 10 CMH2O; Non-Invasive Vent Rate 16 /MIN
[2022-10-24] MEDS: TOLNAFTATE 1% POWDER 45 GM BTL 1 APPLIC TOPICAL (21:47)
[2022-10-24] MEDS: SODIUM CHLORIDE 0.9% IV 250 ML IV CONT (23:30)
[2022-10-25] VITALS (34 sets, daily range): BP systolic 78–108; BP diastolic 34–57; PULSE 60–94; RESP 17–27; TEMP 36.3–37.1; O2SAT 91–100
[2022-10-25] MEDS: IPRATROPIUM BR 0.02% INH SOLN 0.5 MG/2.5 ML VIAL INHALATION ×4 (01:49→20:15)
[2022-10-25] MEDS: LEVALBUTEROL NEB 1.25 MG/3 ML 0.63 MG INHALATION ×4 (01:49→20:15)
[2022-10-25] MEDS: MIDODRINE HCL 2.5 MG TABLET 15 MG PO (02:10)
[2022-10-25 05:35] LABS: Hematocrit 37.8 % (42.0-52.0); Hemoglobin 12.2 g/dL (14.0-18.0); Mean Corpuscular HGB Conc 32.3 g/dl (32-36); Mean Corpuscular Hemoglobin 30.4 pg (26-34); Mean Corpuscular Volume 94.3 fl (80-100); Mean Platelet Volume 9.5 fl (7.4-10.4); Platelet Count Result 317 k/mm3 (150-375); Red Blood Count 4.01 M/mm3 (4.6-6.20); Red Cell Distribution Width 17.5 % (11.5-14.5); White Blood Count 19.5 K/mm3 (4.5-10.0)
[2022-10-25] MEDS: LEVOTHYROXINE SODIUM 25 MCG TABLET PO (05:45)
[2022-10-25 05:47] LABS: Alanine Aminotransferase 27 U/L (6-50); Albumin Level 2.2 g/dL (3.5-5.1); Alkaline Phosphatase 87 U/L (38-126); Anion Gap 4 mmol/L (8-16); Aspartate Amino Transferase 29 U/L (17-59); Bilirubin,Total 0.5 mg/dL (0.2-1.3); Blood Urea Nitrogen 13 mg/dL (9-20); Calcium 7.3 mg/dL (8.4-10.2); Carbon Dioxide 39 mmol/L (22-30); Chloride 92 mmol/L (98-107); Estimated CRCL calculation 63 ml/min; Estimated Glomerular Filt Rate > 60; Glucose 109 mg/dL (65-110); Magnesium 1.6 mg/dL (1.6-2.3); Potassium 3.7 mmol/L (3.4-5.0); Sodium 135 mmol/L (137-145)
[2022-10-25] MEDS: PIPERACILLN/TAZ 3.375GM/NS50ML 3.375 GM/50 ML BAG IVPB ×4 (07:54→23:19)
[2022-10-25] MEDS: levoFLOXacin 750 MG/D5W 150 ML 750 MG/150 ML BAG 100 MG IVPB (07:59)
[2022-10-25] MEDS: carvediloL 3.125 MG TABLET PO (08:02)
[2022-10-25] MEDS: ASPIRIN 81 MG ENTERIC TABLET PO (08:02)
[2022-10-25] MEDS: FOLIC ACID 1 MG TABLET PO (08:02)
[2022-10-25] MEDS: SPIRONOLACTONE 12.5 MG TABLET PO (08:03)
[2022-10-25] MEDS: SACUBITRIL/VALSARTAN 12-13 MG TABLET 1 TAB PO (08:03)
[2022-10-25] MEDS: guaiFENesin 12 HR 600 MG TABCR PO ×2 (08:03→20:16)
[2022-10-25 08:05] LABS: Base Excess ABG 10.9 mEq/l (+/-2.0); Fractional Inspired Oxygen 100 %; HCO3 ABG 34.3 mEq/l (22.0-26.0); Oxygen Saturation ABG 98.6 % (95.0-100.0); Oxyhemoglobin 97.1 % THb (90.0-100.0); PCO2 ABG 40.2 mmHg (35.0-45.0); PO2 ABG 115.8 mmHg (80.0-100.0); PO2 FiO2 Ratio Arterial Blood 1.16 %; Total Hemoglobin 12.1 g/dL (12.0-18.0)
[2022-10-25] MEDS: FUROSEMIDE INJ 40 MG/4 ML VIAL 20 MG IV PUSH (08:05)
[2022-10-25 08:06] LABS: pH ABG 7.549 (7.350-7.450)
[2022-10-25 08:07] LABS: Device NON-INVASIVE VENT; Modified Allen's Test Pass; Site Drawn RIGHT RADIAL
[2022-10-25 08:08] LABS: Non-Invasive Expiratory Pressure 5 CMH2O; Non-Invasive Inspiratory Pressure 10 CMH2O; Non-Invasive Vent Rate 16 /MIN
[2022-10-25] MEDS: TOLNAFTATE 1% POWDER 45 GM BTL 1 APPLIC TOPICAL ×2 (09:00→20:16)
--- NOTE | 2022-10-25 11:15 | PM.PNPUL ---
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 Patient was admitted on 10/16/2022 and has been treated for pneumonia with doxycycline, ceftriaxone and Augmentin for 7 days and a COPD exacerbation with steroids for 7 days, bronchodilators, guaifenesin. He has also been found to have a new cardiomyopathy and has been treated with Lasix and entresto. 10/24 Regarding his worsening hypoxemia: I have ordered a chest x-ray, I will obtain a D-dimer and if this is positive obtain a CT angiogram of the chest. If his D-dimer is negative I will order CT of the chest to assess for worsening restrictive lung disease. I will obtain a echo with bubble study to exclude a right to left shunt. he is afebrile with decreasing white blood cell count and no new phlegm production. Patient does not appear grossly fluid overloaded I will order a BNP. He has received Lasix today. There is no wheezing at this point and I do not feel that systemic steroids are needed. The patient did not tolerate AVAPS due to tachypnea and is currently on BiPAP rate of 16, pressures 10/5, inspiratory time 0.95, rise of 3 and 90% FiO2. I will order a blood gas to assess for hypercarbia. Recommend transfer to higher level of care, IMU. CTA scan did not show any evidence of PE, methotrexate toxicity or interstitial lung disease from rheumatoid arthritis. There is severe panlobular emphysema. Dense bibasilar dependent infiltrates which may be consistent with aspiration. Bubble study was negative for shunt and showed an EF greater than 70%. 10/25/22 Patient wore BiPAP overnight and was weaned to 60% FiO2 this morning. He was then taken off BiPAP and change to 15 L high-flow nasal cannula saturations were 92%. Oxygenation is improved. The patient said he did sleep last night and is in no respiratory distress. ABG ON BIPAP 100% WAS 7.55/40/116. PLAN: Patient was started on vancomycin, Zosyn and Levaquin for possible aspiration. I will continue levalbuterol and ipratropium nebulizers Q 6 hours. There is no wheezing and I will not initiate inhaled or systemic steroids. wean FiO2 as tolerated to maintain saturations 90-94%. Continue BiPAP at night. Patient is DNR. Will follow with you. Subjective Date/time seen: 10/25/22 11:15 Interval history: 10/24/2022:? This is a new pulmonary consult for COPD with hypoxemic respiratory failure.? 81-year-old with history of rheumatoid arthritis with positive rheumatoid factor on methotrexate (first documented in our EMR on 04/12/2013), nonischemic cardiomyopathy, COPD and? restrictive lung disease (combined abnormality on PFTs on 04/25/2021 with?moderate obstructive abnormality and a mild restrictive abnormality resulting in a moderately severe decreased FEV1 with FEV1 1.67 L, 54% predicted,? DLCO corrected for alveolar volume 38% predicted),? untreated obstructive sleep apnea, hypertension, dyslipidemia, basal cell skin cancer, history of DVT and PE, pacemaker, bilateral carotid artery stenosis, and aortic valve regurgitation.? Patient followed in the Pulmonary Clinic and last seen on 10/06/2022: ? From this note Patient was admitted 07/02-07/06 for sepsis, pneumonia, AMS. CT of the chest on admission showed no PE but showed right lower lobe pneumonia and small right pleural effusion. Sepsis related to PNA. He was treated with Vancomycin, cefepime and azithromycin. He was weaned to room air. He still required O2 at night and with activity. Patient had a subacute hip fx in Apr
--- NOTE | 2022-10-25 13:21 | PM.PNCARD ---
Progress Note: A&P Assessment and Plan (1) Acute systolic (congestive) heart failure: Code(s): I50.21 - Acute systolic (congestive) heart failure Status: Acute Assessment and Plan: Echocardiogram 10/21/2022 shows LVEF 25-30%, akinesis of the mid inferoseptal and mid anteroseptal, hypokinesis of the apex, inferior wall, anterior wall, anterolateral wall, inferolateral wall, basal inferoseptal and basal anteroseptal. Was started on Entresto and Coreg this admission. Stop IV Lasix as patient appears euvolemic at this time. Can spot dose with Lasix as needed. Repeat echocardiogram 10/24 shows LVEF 70%. Due to hypotension, will hold Entresto, Coreg, Aldactone. (2) COPD exacerbation: Code(s): J44.1 - Chronic obstructive pulmonary disease with (acute) exacerbation Status: Acute Assessment and Plan: Continue treatment as per primary team. Pulmonary has been consulted. (3) Pacemaker: Code(s): Z95.0 - Presence of cardiac pacemaker Status: Acute Assessment and Plan: Ventricular paced on tele Subjective Date/time seen: 10/25/22 13:21 Interval history: Reason for visit: Congestive heart failure HPI: Patient is an 81-year-old male who has a history of coronary disease, COPD, DVT, hypertension, sleep apnea, pacemaker implantation who presented to the hospital with worsening shortness of breath and chest pain.? He also had been coughing.? He is on chronic home oxygen of 3-4 L but he had progressively worsening shortness of breath to the point he required hospitalization.? Echocardiogram was performed which showed a reduction in ejection fraction.? Cardiology consultation is therefore requested.? He still has some residual chest pain at present also.? He denies any syncope, presyncope, paroxysmal nocturnal dyspnea, orthopnea.? He has has occasional palpitations.? No edema. Date of service 10/23: Follow-up visit in this 81-year-old man with: Apparent history of cardiomyopathy with left ventricular systolic dysfunction has been followed by cardiology/electrophysiology elsewhere.? Appears to have a Bi V pacemaker device chronically implanted.? Records indicate this is a [employer] device.? Has had PVC ablation performed previously according to the notes in the chart.? The chart does not indicate any history of coronary disease.? Patient enters the hospital here with shortness of breath echocardiogram does show significantly reduced LV systolic function.? Patient has been started on modest doses of carvedilol and Entresto yesterday by my partner. Date of service 10/24: Patient states he is feeling a little bit better. On BIPAP although CXR looks improved. No chest pain. Date of service 10/25: Patient moved to IMU yesterday afternoon. He is off of BIPAP currently and on nasal cannula. Patient states he feels okay. Was hypotensive earlier this morning. Review of Systems Review of Systems: 8 point ROS obtained. Negative, unless stated in HPI. Exam Const: General: comfortable and no acute distress Eyes: General: appearance normal, both eyes and all related structures Neck: Neck: supple Resp: Effort & Inspection: normal respiratory effort Auscultation: diminished lung sounds Other: On supplemental oxygen Cardio: Rate: regular rate Rhythm: regular rhythm Heart sounds: no murmurs Skin: General skin exam: normal color Neuro: Speech: normal speech Extrem: General: normal to inspection Psych: Mental Status: mental status grossly normal Affect: normal affect Objective Data Vital Signs Vital Signs: Vital Signs - 24 hr 10/24/22 13:30 10/24/22 14:00 10/24/22 16:20 Temperature 36.4 C Pulse Rate 100 105 H 118 H Respiratory Rate 24 H 22 H 29 H Blood Pressure 117/45 L Pulse Oximetry 93 94 Oxygen Delivery BiPAP Oxygen Flow Rate Fraction of Inspired Oxygen 10/24/22 16:00 10/24/22 17:35 10/24/22 17:15 Temperature Pulse Rate 129 H 122 H Res
--- NOTE | 2022-10-25 14:03 | PCOTNOTE ---
PT. spoke with hospitalist, Dr. Villar, who requested hold on therapy services for today. Following.
--- NOTE | 2022-10-25 16:30 | PCPTNOTE ---
spoke with hospitalist, Dr. Villar, who requested hold on therapy services for today. Following.
[2022-10-25] MEDS: ATORVASTATIN 10 MG TABLET PO (17:29)
[2022-10-25] MEDS: TAMSULOSIN HCL 0.4 MG CAPSULE PO (17:30)
[2022-10-25] MEDS: MIRTAZAPINE SOLTAB 15 MG TAB.DISPER PO (20:16)
[2022-10-26] VITALS (31 sets, daily range): BP systolic 87–112; BP diastolic 40–58; PULSE 63–104; RESP 20–28; TEMP 36.4–36.9; O2SAT 80–97
[2022-10-26] MEDS: LEVALBUTEROL NEB 1.25 MG/3 ML 0.63 MG INHALATION ×4 (02:02→20:44)
[2022-10-26] MEDS: IPRATROPIUM BR 0.02% INH SOLN 0.5 MG/2.5 ML VIAL INHALATION ×4 (02:02→20:44)
[2022-10-26] MEDS: VANCOMYCIN 1,250 MG/NS 250 ML 1,250 MG/250 ML BAG 166.67 MG IVPB ×2 (03:35→22:38)
[2022-10-26 04:47] LABS: Hematocrit 34.9 % (42.0-52.0); Hemoglobin 11.2 g/dL (14.0-18.0); Mean Corpuscular HGB Conc 32.1 g/dl (32-36); Mean Corpuscular Hemoglobin 29.6 pg (26-34); Mean Corpuscular Volume 92.3 fl (80-100); Mean Platelet Volume 9.5 fl (7.4-10.4); Platelet Count Result 267 k/mm3 (150-375); Red Blood Count 3.78 M/mm3 (4.6-6.20); Red Cell Distribution Width 16.9 % (11.5-14.5)
[2022-10-26 05:13] LABS: Alanine Aminotransferase 27 U/L (6-50); Albumin Level 2.2 g/dL (3.5-5.1); Alkaline Phosphatase 83 U/L (38-126); Anion Gap 3 mmol/L (8-16); Aspartate Amino Transferase 33 U/L (17-59); Bilirubin,Total 0.4 mg/dL (0.2-1.3); Blood Urea Nitrogen 16 mg/dL (9-20); Calcium 7.3 mg/dL (8.4-10.2); Carbon Dioxide 37 mmol/L (22-30); Chloride 91 mmol/L (98-107); Estimated CRCL calculation 63 ml/min; Estimated Glomerular Filt Rate > 60; Glucose 132 mg/dL (65-110); Magnesium 1.7 mg/dL (1.6-2.3); Sodium 131 mmol/L (137-145)
[2022-10-26] MEDS: PIPERACILLN/TAZ 3.375GM/NS50ML 3.375 GM/50 ML BAG IVPB ×3 (05:16→18:17)
[2022-10-26] MEDS: LEVOTHYROXINE SODIUM 25 MCG TABLET PO (05:17)
[2022-10-26] MEDS: guaiFENesin 12 HR 600 MG TABCR PO ×2 (08:39→20:52)
[2022-10-26] MEDS: ASPIRIN 81 MG ENTERIC TABLET PO (08:39)
[2022-10-26] MEDS: FOLIC ACID 1 MG TABLET PO (08:39)
[2022-10-26] MEDS: levoFLOXacin 750 MG/D5W 150 ML 750 MG/150 ML BAG 100 MG IVPB (08:42)
[2022-10-26] MEDS: TOLNAFTATE 1% POWDER 45 GM BTL 1 APPLIC TOPICAL ×2 (10:48→20:52)
[2022-10-26] MEDS: POTASSIUM CHLORIDE 20 MEQ PACKET (FOR LIQUID) 40 MEQ PO (10:48)
--- NOTE | 2022-10-26 13:36 | PM.PNPUL ---
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 Patient was admitted on 10/16/2022 and has been treated for pneumonia with doxycycline, ceftriaxone and Augmentin for 7 days and a COPD exacerbation with steroids for 7 days, bronchodilators, guaifenesin. He has also been found to have a new cardiomyopathy and has been treated with Lasix and entresto. 10/24 Regarding his worsening hypoxemia: I have ordered a chest x-ray, I will obtain a D-dimer and if this is positive obtain a CT angiogram of the chest. If his D-dimer is negative I will order CT of the chest to assess for worsening restrictive lung disease. I will obtain a echo with bubble study to exclude a right to left shunt. he is afebrile with decreasing white blood cell count and no new phlegm production. Patient does not appear grossly fluid overloaded I will order a BNP. He has received Lasix today. There is no wheezing at this point and I do not feel that systemic steroids are needed. The patient did not tolerate AVAPS due to tachypnea and is currently on BiPAP rate of 16, pressures 10/5, inspiratory time 0.95, rise of 3 and 90% FiO2. I will order a blood gas to assess for hypercarbia. Recommend transfer to higher level of care, IMU. CTA scan did not show any evidence of PE, methotrexate toxicity or interstitial lung disease from rheumatoid arthritis. There is severe panlobular emphysema. Dense bibasilar dependent infiltrates which may be consistent with aspiration. Bubble study was negative for shunt and showed an EF greater than 70%. 10/25/22 Patient wore BiPAP overnight and was weaned to 60% FiO2 this morning. He was then taken off BiPAP and change to 15 L high-flow nasal cannula saturations were 92%. Oxygenation is improved. The patient said he did sleep last night and is in no respiratory distress. ABG ON BIPAP 100% WAS 7.55/40/116. 10/26 patient is more awake today. Overall he tells me his breathing is slowly improved and he has no shortness of breath at rest. Patient wore the hospital BiPAP 02/08 last night with 75% FiO2 and saturations were 93%. When I entered the room is saturations were 95% on 15 L nasal cannula oxygen. I turned him to 10 L nasal cannula is saturations were 93%. His white blood cell count is 17.0, his creatinine is 0.8. PLAN: Patient was started on vancomycin, Zosyn and Levaquin for possible aspiration, Today is day 2. I will continue levalbuterol and ipratropium nebulizers Q 6 hours. There is no wheezing and I will not initiate inhaled or systemic steroids. wean FiO2 as tolerated to maintain saturations 90-94%. Continue BiPAP at night. Patient is DNR. Will follow with you. Subjective Date/time seen: 10/26/22 13:36 Interval history: 10/24/2022:? This is a new pulmonary consult for COPD with hypoxemic respiratory failure.? 81-year-old with history of rheumatoid arthritis with positive rheumatoid factor on methotrexate (first documented in our EMR on 04/12/2013), nonischemic cardiomyopathy, COPD and? restrictive lung disease (combined abnormality on PFTs on 04/25/2021 with?moderate obstructive abnormality and a mild restrictive abnormality resulting in a moderately severe decreased FEV1 with FEV1 1.67 L, 54% predicted,? DLCO corrected for alveolar volume 38% predicted),? untreated obstructive sleep apnea, hypertension, dyslipidemia, basal cell skin cancer, history of DVT and PE, pacemaker, bilateral carotid artery stenosis, and aortic valve regurgitation.? Patient lety
--- NOTE | 2022-10-26 13:55 | PCPTNOTE ---
On 10/26/22, the student, [Denisha Perez], provided care and completed [employer] documentation on this patient. I have reviewed the student's documentation and agree with the findings.
--- NOTE | 2022-10-26 14:24 | PM.PNCARD ---
Progress Note: A&P Assessment and Plan (1) Acute systolic (congestive) heart failure: Code(s): I50.21 - Acute systolic (congestive) heart failure Status: Acute Assessment and Plan: Echocardiogram 10/21/2022 shows LVEF 25-30%, akinesis of the mid inferoseptal and mid anteroseptal, hypokinesis of the apex, inferior wall, anterior wall, anterolateral wall, inferolateral wall, basal inferoseptal and basal anteroseptal. Was started on Entresto and Coreg this admission. Repeat echocardiogram done 10/24 for a bubble study noted an EF of 70%, however, only 1 view was obtained on this study as it was a bubble study onle. Stopped IV Lasix as patient appears euvolemic at this time. Can spot dose with Lasix as needed. Due to hypotension, Entresto, Coreg, Aldactone placed on hold. (2) Pacemaker: Code(s): Z95.0 - Presence of cardiac pacemaker Status: Acute Assessment and Plan: Ventricular paced on tele (3) Respiratory failure with hypoxia: Code(s): J96.91 - Respiratory failure, unspecified with hypoxia Status: Acute Assessment and Plan: Pulmonary consulted. Subjective Date/time seen: 10/26/22 14:24 Interval history: Reason for visit: Congestive heart failure HPI: Patient is an 81-year-old male who has a history of coronary disease, COPD, DVT, hypertension, sleep apnea, pacemaker implantation who presented to the hospital with worsening shortness of breath and chest pain.? He also had been coughing.? He is on chronic home oxygen of 3-4 L but he had progressively worsening shortness of breath to the point he required hospitalization.? Echocardiogram was performed which showed a reduction in ejection fraction.? Cardiology consultation is therefore requested.? He still has some residual chest pain at present also.? He denies any syncope, presyncope, paroxysmal nocturnal dyspnea, orthopnea.? He has has occasional palpitations.? No edema. Date of service 10/23: Follow-up visit in this 81-year-old man with: Apparent history of cardiomyopathy with left ventricular systolic dysfunction has been followed by cardiology/electrophysiology elsewhere.? Appears to have a Bi V pacemaker device chronically implanted.? Records indicate this is a [employer] device.? Has had PVC ablation performed previously according to the notes in the chart.? The chart does not indicate any history of coronary disease.? Patient enters the hospital here with shortness of breath echocardiogram does show significantly reduced LV systolic function.? Patient has been started on modest doses of carvedilol and Entresto yesterday by my partner. Date of service 10/24: Patient states he is feeling a little bit better. On BIPAP although CXR looks improved. No chest pain. Date of service 10/25: Patient moved to IMU yesterday afternoon. He is off of BIPAP currently and on nasal cannula. Patient states he feels okay. Was hypotensive earlier this morning. Date of service 10/26: Patient sitting up in chair this morning. Feels short of breath. No chest pain or other complaints. Easily falls asleep. Review of Systems Review of Systems: 8 point ROS obtained. Negative, unless stated in HPI. Exam Const: General: comfortable and no acute distress Other: Elderly male. Hard of hearing. Eyes: General: appearance normal, both eyes and all related structures Resp: Effort & Inspection: normal respiratory effort Auscultation: diminished lung sounds Other: On supplemental oxygen Cardio: Rate: regular rate Rhythm: regular rhythm Heart sounds: no murmurs Skin: General skin exam: normal color Neuro: Speech: normal speech Extrem: General: normal to inspection Psych: Mental Status: mental status grossly normal Affect: normal affect Objective Data Vital Signs Vital Signs: Vital Signs - 24 hr 10/25/22 15:12 10/25/22 15:23 10/25/22 16:00 Temperature 36.6 C Pulse Rate 64 Respiratory Rate 18 Blood Pressu
[2022-10-26] MEDS: ATORVASTATIN 10 MG TABLET PO (18:17)
[2022-10-26] MEDS: TAMSULOSIN HCL 0.4 MG CAPSULE PO (18:17)
[2022-10-26] MEDS: MIRTAZAPINE SOLTAB 15 MG TAB.DISPER PO (20:52)
[2022-10-26 21:36] LABS: Vancomycin Trough 14.4 ug/mL (10.0-20.0)
[2022-10-27] VITALS (24 sets, daily range): BP systolic 102–156; BP diastolic 46–89; PULSE 65–91; RESP 20–27; TEMP 36.4–37.3; O2SAT 92–100
[2022-10-27] MEDS: PIPERACILLN/TAZ 3.375GM/NS50ML 3.375 GM/50 ML BAG IVPB ×5 (00:38→23:09)
[2022-10-27] MEDS: LEVALBUTEROL NEB 1.25 MG/3 ML 0.63 MG INHALATION ×4 (03:15→20:27)
[2022-10-27] MEDS: IPRATROPIUM BR 0.02% INH SOLN 0.5 MG/2.5 ML VIAL INHALATION ×4 (03:15→20:27)
[2022-10-27 05:14] LABS: Estimated CRCL calculation 77 ml/min; Estimated Glomerular Filt Rate > 60
[2022-10-27] MEDS: LEVOTHYROXINE SODIUM 25 MCG TABLET PO (05:58)
--- NOTE | 2022-10-27 08:51 | PM.PNCARD ---
Progress Note: A&P Assessment and Plan (1) Cardiomyopathy: Code(s): I42.9 - Cardiomyopathy, unspecified Status: Acute (2) Pacemaker: Code(s): Z95.0 - Presence of cardiac pacemaker Status: Acute Plan 81-year-old man with: Apparent history of LV systolic dysfunction with previously implanted cardiac resynchronization device by his established hiv nurse. Data in this hospital stay is very confusing and conflicting. Echocardiogram initially demonstrated very low ejection fraction. Limited echo done for a bubble study subsequently shows a nearly hyperdynamic ventricle. He is not clinically volume overloaded or in heart failure currently and guideline directed medical therapy cannot be instituted at this time because of soft systolic blood pressure. He remains in the hospital for treatment of his respiratory status he appears to have evidence of bibasilar pneumonia which is several days into broad-spectrum antibiotics at this time. He is clinically improving. Appears to have significant underlying COPD according to the studies that have been done in the chart. Lee No MD [facility] Subjective Date/time seen: Date of service: 10/27/22 08:51 Interval history: Reason for visit: Congestive heart failure HPI: Patient is an 81-year-old male who has a history of coronary disease, COPD, DVT, hypertension, sleep apnea, pacemaker implantation who presented to the hospital with worsening shortness of breath and chest pain.? He also had been coughing.? He is on chronic home oxygen of 3-4 L but he had progressively worsening shortness of breath to the point he required hospitalization.? Echocardiogram was performed which showed a reduction in ejection fraction.? Cardiology consultation is therefore requested.? He still has some residual chest pain at present also.? He denies any syncope, presyncope, paroxysmal nocturnal dyspnea, orthopnea.? He has has occasional palpitations.? No edema. Date of service 10/23: Follow-up visit in this 81-year-old man with: Apparent history of cardiomyopathy with left ventricular systolic dysfunction has been followed by cardiology/electrophysiology elsewhere.? Appears to have a Bi V pacemaker device chronically implanted.? Records indicate this is a [employer] device.? Has had PVC ablation performed previously according to the notes in the chart.? The chart does not indicate any history of coronary disease.? Patient enters the hospital here with shortness of breath echocardiogram does show significantly reduced LV systolic function.? Patient has been started on modest doses of carvedilol and Entresto yesterday by my partner. Date of service 10/24: Patient states he is feeling a little bit better. On BIPAP although CXR looks improved. No chest pain. Date of service 10/25: Patient moved to IMU yesterday afternoon. He is off of BIPAP currently and on nasal cannula. Patient states he feels okay. Was hypotensive earlier this morning. Date of service 10/26: Patient sitting up in chair this morning. Feels short of breath. No chest pain or other complaints. Easily falls asleep. Date of service 10/27/2021: The patient is supine in bed head of the bed elevated about 45? says that his breathing is significantly improved. No new cardiovascular complaints today. Is alert and oriented Exam Narrative: Awake alert. Appears stated age Const: General: comfortable and no acute distress; No confusion Orientation/consciousness: No confusion Other: Elderly male. Hard of hearing. HENMT: Face/Nose/Sinus: Normal nares present Mouth: Yes moist mucous membranes Eyes: General: appearance normal, both eyes and all related structures Sclera: sclerae normal Neck: Neck: supple Carotids: no bruits Chest: Other: No reproducible chest wall pain to palpation. Pacemaker noted left upper chest Resp: Effort & Inspection: normal respiratory effort Auscultation: diminished lung sounds Other:
[2022-10-27] MEDS: TOLNAFTATE 1% POWDER 45 GM BTL 1 APPLIC TOPICAL ×2 (09:32→20:25)
[2022-10-27] MEDS: ASPIRIN 81 MG ENTERIC TABLET PO (09:32)
[2022-10-27] MEDS: FOLIC ACID 1 MG TABLET PO (09:32)
[2022-10-27] MEDS: levoFLOXacin 750 MG/D5W 150 ML 750 MG/150 ML BAG 100 MG IVPB (09:32)
[2022-10-27] MEDS: guaiFENesin 12 HR 600 MG TABCR PO ×2 (09:32→13:10)
--- NOTE | 2022-10-27 10:05 | P.PNPL_ITS ---
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 Patient was admitted on 10/16/2022 and has been treated for pneumonia with doxycycline, ceftriaxone and Augmentin for 7 days and a COPD exacerbation with steroids for 7 days, bronchodilators, guaifenesin. He has also been found to have a new cardiomyopathy and has been treated with Lasix and entresto. 10/24 Regarding his worsening hypoxemia: I have ordered a chest x-ray, I will obtain a D-dimer and if this is positive obtain a CT angiogram of the chest. If his D-dimer is negative I will order CT of the chest to assess for worsening restrictive lung disease. I will obtain a echo with bubble study to exclude a right to left shunt. he is afebrile with decreasing white blood cell count and no new phlegm production. Patient does not appear grossly fluid overloaded I will order a BNP. He has received Lasix today. There is no wheezing at this point and I do not feel that systemic steroids are needed. The patient did not tolerate AVAPS due to tachypnea and is currently on BiPAP rate of 16, pressures 10/5, inspiratory time 0.95, rise of 3 and 90% FiO2. I will order a blood gas to assess for hypercarbia. Recommend transfer to higher level of care, IMU. CTA scan did not show any evidence of PE, methotrexate toxicity or interstitial lung disease from rheumatoid arthritis. There is severe panlobular emphysema. Dense bibasilar dependent infiltrates which may be consistent with aspiration. Bubble study was negative for shunt and showed an EF greater than 70%. 10/25/22 Patient wore BiPAP overnight and was weaned to 60% FiO2 this morning. He was then taken off BiPAP and change to 15 L high-flow nasal cannula saturations were 92%. Oxygenation is improved. The patient said he did sleep last night and is in no respiratory distress. ABG ON BIPAP 100% WAS 7.55/40/116. 10/26 patient is more awake today. Overall he tells me his breathing is slowly improved and he has no shortness of breath at rest. Patient wore the hospital BiPAP 10/5 last night with 75% FiO2 and saturations were 93%. When I entered the room is saturations were 95% on 15 L nasal cannula oxygen. I turned him to 10 L nasal cannula is saturations were 93%. His white blood cell count is 17.0, his creatinine is 0.8. PLAN: Patient was started on vancomycin, Zosyn and Levaquin for possible aspiration, Today is day 2. I will continue levalbuterol and ipratropium nebulizers Q 6 hours. There is no wheezing and I will not initiate inhaled or systemic steroids. wean FiO2 as tolerated to maintain saturations 90-94%. Continue BiPAP at night. 10/27 Patient is more awake today. He has eaten breakfast by himself, he was attempting to put his dentures and I helped him with this. He wore the hospital BiPAP 10/5 with 90% FiO2 and saturations were 92-95 last night. Currently is on 15 L high-flow nasal cannula comfortable in no respiratory distress with satu rations 94%. His creatinine is 0.7. He coughs but cannot expectorate. nasal swab is positive for MRSA. Plan: slowly improving and will continue vancomycin, Zosyn and Levaquin, day 3. continue levalbuterol and ipratropium Q 6. Patient is having difficulty expectorating his phlegm and I will initiate vest t
--- NOTE | 2022-10-27 12:35 | PCNFU ---
Nutrition Follow-Up Complete: Inadequate Oral intake as related to COPD as evidenced by poor po intake reported. Goal: Meet estimated nutritional needs - Progressing Pt current nutrition is Minced & moist level 5, heart healthy, level 3 moderately thick liquids. Ensure Enlive BID (350 kcal, 20 g protein); Ensure Pudding BID (240 kcal, 12 g protein). Intakes 0-100% last 48 h. Nutrition recommendation: Continue with current nutrition plan and orders. Agree with orders Last recorded weight is 75 kg. Up 5 kg since admission. Not fluid overloaded per notes Bowel Motility: Last BM 10/24/22. May benefit from bowel regimen Labs Reviewed: Hgb 11.2, Hct 34.9, Alb 2.2, Na 131, K+ 3.0 Meds Noted: Folic acid, Lasix, Remeron, spironolactone Skin: WNL Additional Notes: Appetite is inconsistent. No intakes recorded on Ensure. Continue with current care plan Will montior weight, labs, skin, oral intake every 3 days.
[2022-10-27] MEDS: ATORVASTATIN 10 MG TABLET PO (18:36)
[2022-10-27] MEDS: VANCOMYCIN 1,250 MG/NS 250 ML 1,250 MG/250 ML BAG 166 MG IVPB (18:36)
[2022-10-27] MEDS: TAMSULOSIN HCL 0.4 MG CAPSULE PO (18:36)
[2022-10-27] MEDS: MIRTAZAPINE SOLTAB 15 MG TAB.DISPER PO (20:25)
[2022-10-27] MEDS: guaiFENesin 12 HR 600 MG TABCR 1200 MG PO (20:25)
[2022-10-28] VITALS (29 sets, daily range): BP systolic 100–115; BP diastolic 46–62; PULSE 71–89; RESP 18–27; TEMP 36.1–36.8; O2SAT 91–100
[2022-10-28] MEDS: IPRATROPIUM BR 0.02% INH SOLN 0.5 MG/2.5 ML VIAL INHALATION ×4 (02:10→20:49)
[2022-10-28] MEDS: LEVALBUTEROL NEB 1.25 MG/3 ML 0.63 MG INHALATION ×4 (02:10→20:49)
[2022-10-28] MEDS: PIPERACILLN/TAZ 3.375GM/NS50ML 3.375 GM/50 ML BAG IVPB ×3 (06:15→19:24)
[2022-10-28] MEDS: LEVOTHYROXINE SODIUM 25 MCG TABLET PO (06:15)
[2022-10-28 09:05] LABS: Estimated CRCL calculation 77 ml/min; Estimated Glomerular Filt Rate > 60
[2022-10-28] MEDS: levoFLOXacin 750 MG/D5W 150 ML 750 MG/150 ML BAG 100 MG IVPB (09:25)
--- NOTE | 2022-10-28 09:36 | PM.PNCARD ---
Progress Note: A&P Assessment and Plan (1) Pacemaker: Code(s): Z95.0 - Presence of cardiac pacemaker Status: Acute (2) Cardiomyopathy: Code(s): I42.9 - Cardiomyopathy, unspecified Status: Acute (3) COPD exacerbation: Code(s): J44.1 - Chronic obstructive pulmonary disease with (acute) exacerbation Status: Acute Plan Blood pressure has improved in the last 12-24 hours no significant hypotension has been recorded. Will try to resume very low-dose Entresto that is currently on hold. Prognosis for this gentleman seems poor. Will continue to follow with you while he is in the hospital. DNR status is on his chart and is appropriate Lee No MD [facility] Subjective Date/time seen: Date of service: 10/28/22 09:36 Interval history: Follow-up visit in this 81-year-old man with: History of cardiomyopathy also hospitalized with respiratory difficulty an element of chronic lung disease as well. Patient is resting on BiPAP in the room this morning appears to be comfortable does not offer any specific complaints. Exam Narrative: Awake alert. Appears stated age Const: General: comfortable and no acute distress; No confusion Orientation/consciousness: No confusion Other: Elderly male. Hard of hearing. HENMT: Face/Nose/Sinus: Normal nares present Mouth: Yes moist mucous membranes Eyes: General: appearance normal, both eyes and all related structures Sclera: sclerae normal Neck: Neck: supple Carotids: no bruits Chest: Other: No reproducible chest wall pain to palpation. Pacemaker noted left upper chest Resp: Effort & Inspection: normal respiratory effort Auscultation: clear to auscultation bilaterally and diminished lung sounds Other: Tubular breath sounds with Velcro sounding rales centrally Cardio: Rate: regular rate Rhythm: regular rhythm Heart sounds: no murmurs Other: Paced rhythm GI: Inspection: non-distended Auscultation: normal bowel sounds Skin: General skin exam: normal color Neuro: General: No confusion Cranial nerves: Yes Normal hearing present Speech: normal speech and No Abnormal speech present Sensory Exam: normal sensation Other: Alert and oriented following awakening from sleep Extrem: General: normal to inspection and no edema Other: No significant peripheral edema Psych: Mental Status: mental status grossly normal Affect: normal affect Objective Data Vital Signs Vital Signs: Vital Signs - 24 hr 10/27/22 10:00 10/27/22 12:00 10/27/22 12:00 Temperature 37.1 C Pulse Rate 75 84 65 Respiratory Rate 22 H Blood Pressure 121/52 L Pulse Oximetry 100 Oxygen Delivery Oxygen Flow Rate Fraction of Inspired Oxygen 10/27/22 14:30 10/27/22 14:43 10/27/22 14:00 Temperature Pulse Rate 74 72 80 Respiratory Rate 20 20 Blood Pressure Pulse Oximetry Oxygen Delivery Oxygen Flow Rate Fraction of Inspired Oxygen 10/27/22 16:00 10/27/22 12:00 10/27/22 16:00 Temperature Pulse Rate 73 Respiratory Rate Blood Pressure Pulse Oximetry 95 95 Oxygen Delivery High Flow Nasal Cannula High Flow Nasal Cannula Oxygen Flow Rate 15 15 Fraction of Inspired Oxygen 10/27/22 18:00 10/27/22 16:00 10/27/22 20:29 Temperature 37.1 C Pulse Rate 76 84 81 Respiratory Rate 20 20 Blood Pressure 156/74 H Pulse Oximetry 100 Oxygen Delivery Oxygen Flow Rate Fraction of Inspired Oxygen 10/27/22 20:31 10/27/22 20:45 10/27/22 20:00 Temperature Pulse Rate 81 79 76 Respiratory Rate 20 20 Blood Pressure Pulse Oximetry 93 Oxygen Delivery High Flow Nasal Cannula Oxygen Flow Rate 45 Fraction of Inspired Oxygen 55 10/27/22 20:00 10/27/22 21:29 10/27/22 20:00 Temperature 36.6 C Pulse Rate 78 86 78 Respiratory Rate 20 22 H Blood Pressure 136/89 Pulse Oximetry 93 94 Oxygen Delivery High Flow Therapy with Na Oxy
[2022-10-28 09:52] LABS: Vancomycin Trough 14.3 ug/mL (10.0-20.0)
--- NOTE | 2022-10-28 10:03 | PM.PNPUL ---
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 Patient was admitted on 10/16/2022 and has been treated for pneumonia with doxycycline, ceftriaxone and Augmentin for 7 days and a COPD exacerbation with steroids for 7 days, bronchodilators, guaifenesin. He has also been found to have a new cardiomyopathy and has been treated with Lasix and entresto. 10/24 Regarding his worsening hypoxemia: I have ordered a chest x-ray, I will obtain a D-dimer and if this is positive obtain a CT angiogram of the chest. If his D-dimer is negative I will order CT of the chest to assess for worsening restrictive lung disease. I will obtain a echo with bubble study to exclude a right to left shunt. he is afebrile with decreasing white blood cell count and no new phlegm production. Patient does not appear grossly fluid overloaded I will order a BNP. He has received Lasix today. There is no wheezing at this point and I do not feel that systemic steroids are needed. The patient did not tolerate AVAPS due to tachypnea and is currently on BiPAP rate of 16, pressures 10/5, inspiratory time 0.95, rise of 3 and 90% FiO2. I will order a blood gas to assess for hypercarbia. Recommend transfer to higher level of care, IMU. CTA scan did not show any evidence of PE, methotrexate toxicity or interstitial lung disease from rheumatoid arthritis. There is severe panlobular emphysema. Dense bibasilar dependent infiltrates which may be consistent with aspiration. Bubble study was negative for shunt and showed an EF greater than 70%. 10/25/22 Patient wore BiPAP overnight and was weaned to 60% FiO2 this morning. He was then taken off BiPAP and change to 15 L high-flow nasal cannula saturations were 92%. Oxygenation is improved. The patient said he did sleep last night and is in no respiratory distress. ABG ON BIPAP 100% WAS 7.55/40/116. 10/26 patient is more awake today. Overall he tells me his breathing is slowly improved and he has no shortness of breath at rest. Patient wore the hospital BiPAP 10/5 last night with 75% FiO2 and saturations were 93%. When I entered the room is saturations were 95% on 15 L nasal cannula oxygen. I turned him to 10 L nasal cannula is saturations were 93%. His white blood cell count is 17.0, his creatinine is 0.8. PLAN: Patient was started on vancomycin, Zosyn and Levaquin for possible aspiration, Today is day 2. I will continue levalbuterol and ipratropium nebulizers Q 6 hours. There is no wheezing and I will not initiate inhaled or systemic steroids. wean FiO2 as tolerated to maintain saturations 90-94%. Continue BiPAP at night. 10/27 Patient is more awake today. He has eaten breakfast by himself, he was attempting to put his dentures and I helped him with this. He wore the hospital BiPAP 10/5 with 90% FiO2 and saturations were 92-95 last night. Currently is on 15 L high-flow nasal cannula comfortable in no respiratory distress with saturations 94%. His creatinine is 0.7. He coughs but cannot expectorate. nasal swab is positive for MRSA. Plan: slowly improving and will continue vancomycin, Zosyn and Levaquin, day 3. continue levalbuterol and ipratropium Q 6. Patient is having difficulty expectorating his phlegm and I will initiate vest therapy, Cornet flutter valve, and guaifenesin 1200 mg p.o. b.i.d.. Encourage out of bed to chair as tolerated. He was out of bed yesterday with a Thomas lift. 10/28 Patient is currently sleeping on BiPAP rate of 16, breathing
[2022-10-28 10:36] LABS: Anion Gap 2 mmol/L (8-16); Blood Urea Nitrogen 9 mg/dL (9-20); Calcium 7.3 mg/dL (8.4-10.2); Carbon Dioxide 33 mmol/L (22-30); Chloride 97 mmol/L (98-107); Estimated CRCL calculation 77 ml/min; Estimated Glomerular Filt Rate > 60; Glucose 78 mg/dL (65-110); Magnesium 1.8 mg/dL (1.6-2.3); Potassium 3.6 mmol/L (3.4-5.0); Sodium 132 mmol/L (137-145)
[2022-10-28] MEDS: VANCOMYCIN 1,000 MG/NS 250 ML 1,000 MG/250 ML BAG 250 MG IVPB ×2 (13:22→23:08)
[2022-10-28] MEDS: FUROSEMIDE INJ 40 MG/4 ML VIAL IV PUSH (13:24)
[2022-10-28] MEDS: guaiFENesin 12 HR 600 MG TABCR 1200 MG PO (21:11)
[2022-10-28] MEDS: SACUBITRIL/VALSARTAN 12-13 MG TABLET 1 TAB PO (21:12)
[2022-10-28] MEDS: TOLNAFTATE 1% POWDER 45 GM BTL 1 APPLIC TOPICAL (21:14)
[2022-10-28] MEDS: MIRTAZAPINE 15 MG TABLET PO (21:17)
[2022-10-29] VITALS (30 sets, daily range): BP systolic 108–180; BP diastolic 43–75; PULSE 74–95; RESP 18–28; TEMP 36.2–36.8; O2SAT 91–99
[2022-10-29] MEDS: PIPERACILLN/TAZ 3.375GM/NS50ML 3.375 GM/50 ML BAG IVPB ×4 (00:18→20:22)
[2022-10-29] MEDS: IPRATROPIUM BR 0.02% INH SOLN 0.5 MG/2.5 ML VIAL INHALATION ×4 (02:57→20:05)
[2022-10-29] MEDS: LEVALBUTEROL NEB 1.25 MG/3 ML 0.63 MG INHALATION ×4 (02:58→20:05)
[2022-10-29] MEDS: LEVOTHYROXINE SODIUM 25 MCG TABLET PO (06:14)
[2022-10-29 07:00] LABS: Basophils Absolute Auto 0.1 K/mm3 (0.0-0.1); Basophils Percent Auto 0.3 % (0.2-1.2); Eosinophils Absolute Auto 0.2 K/mm3 (0-0.3); Eosinophils Percent Auto 1.2 % (0-4.4); Hematocrit 39.2 % (42.0-52.0); Hemoglobin 12.4 g/dL (14.0-18.0); Immature Granulocyte Absolute 0.12 K/mm3 (0.00-0.031); Immature Granulocyte Percent A 0.8 % (0-0.5); Lymphocytes Absolute Auto 1.01 K/mm3 (0.9-3.2); Lymphocytes Percent Auto 6.6 % (18.3-44.2); Mean Corpuscular HGB Conc 31.6 g/dl (32-36); Mean Corpuscular Hemoglobin 30.1 pg (26-34); Mean Corpuscular Volume 95.1 fl (80-100); Mean Platelet Volume 9.8 fl (7.4-10.4); Monocytes Absolute Auto 1.2 K/mm3 (0.1-0.6); Monocytes Percent Auto 7.6 % (2.6-8.5); Neutrophils Absolute Auto 12.8 K/mm3 (1.3-6.7); Neutrophils Percent Auto 83.5 % (45.5-73.1); Platelet Count Result 258 k/mm3 (150-375); Red Blood Count 4.12 M/mm3 (4.6-6.20); Red Cell Distribution Width 17.1 % (11.5-14.5); White Blood Count 15.4 K/mm3 (4.5-10.0)
[2022-10-29 07:11] LABS: Alanine Aminotransferase 37 U/L (6-50); Albumin Level 2.5 g/dL (3.5-5.1); Alkaline Phosphatase 93 U/L (38-126); Anion Gap 2 mmol/L (8-16); Aspartate Amino Transferase 44 U/L (17-59); Bilirubin,Total 0.7 mg/dL (0.2-1.3); Blood Urea Nitrogen 7 mg/dL (9-20); Calcium 7.3 mg/dL (8.4-10.2); Carbon Dioxide 31 mmol/L (22-30); Chloride 99 mmol/L (98-107); Estimated CRCL calculation 89 ml/min; Estimated Glomerular Filt Rate > 60; Glucose 88 mg/dL (65-110); Potassium 3.2 mmol/L (3.4-5.0); Sodium 132 mmol/L (137-145)
[2022-10-29 07:17] LABS: NT Pro B Type Natriuretic Pept 1280 pg/mL (19.9-100)
[2022-10-29] MEDS: SACUBITRIL/VALSARTAN 12-13 MG TABLET 1 TAB PO ×2 (09:14→20:21)
[2022-10-29] MEDS: ASPIRIN 81 MG ENTERIC TABLET PO (09:14)
[2022-10-29] MEDS: FUROSEMIDE INJ 40 MG/4 ML VIAL IV PUSH (09:14)
[2022-10-29] MEDS: guaiFENesin 12 HR 600 MG TABCR 1200 MG PO ×2 (09:14→20:22)
[2022-10-29] MEDS: FOLIC ACID 1 MG TABLET PO (09:14)
--- NOTE | 2022-10-29 10:22 | PCPTNOTE ---
Patient refused treatment this session. Patient reported he wanted to rest more and was refusing to attempt to get up to chair. Educated patient on the importance and benefits of working with therapy, patient continued to refuse and asked PT to come back later.
--- NOTE | 2022-10-29 12:50 | PCOTNOTE ---
Attempted to see Patient for OT treatment session. Patient unavailable at this time, having a PICC line placed.
[2022-10-29] MEDS: TOLNAFTATE 1% POWDER 45 GM BTL 1 APPLIC TOPICAL ×2 (15:02→20:29)
[2022-10-29] MEDS: VANCOMYCIN 1,000 MG/NS 250 ML BAG 250 MG IVPB (15:02)
[2022-10-29] MEDS: CENTRAL LINE FLUSH 10 ML IV PUSH ×2 (15:03→20:28)
[2022-10-29] MEDS: POTASSIUM CHLORIDE 20 MEQ PACKET (FOR LIQUID) 40 MEQ PO (15:03)
[2022-10-29] MEDS: TAMSULOSIN HCL 0.4 MG CAPSULE PO (17:35)
[2022-10-29] MEDS: ATORVASTATIN 10 MG TABLET PO (17:35)
[2022-10-29] MEDS: levoFLOXacin 750 MG/D5W 150 ML 750 MG/150 ML BAG 100 MG IVPB (17:35)
[2022-10-29] MEDS: MIRTAZAPINE 15 MG TABLET PO (20:21)
[2022-10-29] MEDS: VANCOMYCIN 1,000 MG/NS 250 ML 1,000 MG/250 ML BAG 250 MG IVPB (23:28)
[2022-10-30] VITALS (27 sets, daily range): BP systolic 92–115; BP diastolic 35–60; PULSE 80–104; RESP 20–28; TEMP 36.4–37.2; O2SAT 92–98
[2022-10-30] MEDS: LEVALBUTEROL NEB 1.25 MG/3 ML 0.63 MG INHALATION ×4 (02:05→20:02)
[2022-10-30] MEDS: IPRATROPIUM BR 0.02% INH SOLN 0.5 MG/2.5 ML VIAL INHALATION ×4 (02:05→20:02)
[2022-10-30 04:23] LABS: Hematocrit 31.5 % (42.0-52.0); Hemoglobin 10.4 g/dL (14.0-18.0); Mean Corpuscular Hemoglobin 30.5 pg (26-34); Mean Corpuscular Volume 92.4 fl (80-100); Mean Platelet Volume 9.4 fl (7.4-10.4); Platelet Count Result 231 k/mm3 (150-375); Red Blood Count 3.41 M/mm3 (4.6-6.20); Red Cell Distribution Width 16.9 % (11.5-14.5); White Blood Count 13.7 K/mm3 (4.5-10.0)
[2022-10-30 04:34] LABS: Anion Gap -2 mmol/L (8-16); Blood Urea Nitrogen 9 mg/dL (9-20); Calcium 7.3 mg/dL (8.4-10.2); Carbon Dioxide 35 mmol/L (22-30); Chloride 99 mmol/L (98-107); Estimated CRCL calculation 77 ml/min; Estimated Glomerular Filt Rate > 60; Glucose 95 mg/dL (65-110); Magnesium 1.6 mg/dL (1.6-2.3); Sodium 132 mmol/L (137-145)
[2022-10-30] MEDS: LEVOTHYROXINE SODIUM 25 MCG TABLET PO (05:29)
[2022-10-30] MEDS: CENTRAL LINE FLUSH 10 ML IV PUSH ×3 (05:29→20:19)
[2022-10-30] MEDS: PIPERACILLN/TAZ 3.375GM/NS50ML 3.375 GM/50 ML BAG IVPB ×4 (05:29→20:18)
[2022-10-30] MEDS: FOLIC ACID 1 MG TABLET PO (10:28)
[2022-10-30] MEDS: SACUBITRIL/VALSARTAN 12-13 MG TABLET 1 TAB PO ×2 (10:28→20:17)
[2022-10-30] MEDS: ASPIRIN 81 MG ENTERIC TABLET PO (10:28)
[2022-10-30] MEDS: FUROSEMIDE INJ 40 MG/4 ML VIAL IV PUSH (10:28)
[2022-10-30] MEDS: guaiFENesin 12 HR 600 MG TABCR 1200 MG PO ×2 (10:28→20:17)
[2022-10-30] MEDS: TOLNAFTATE 1% POWDER 45 GM BTL 1 APPLIC TOPICAL ×2 (10:29→20:19)
--- NOTE | 2022-10-30 13:09 | PCNFU ---
Nutrition Follow-Up Complete: Inadequate Oral intake as related to COPD as evidenced by poor po intake reported. Goal:Meet estimated nutritional needs Pt current nutrition is Heart healthy, minced and moist level 5, level 3 liquids. Nutrition recommendation: continue with current plan of care. Last recorded weight is 75 kg - up 5kg from admission wt. Bowel Motility: No BM recorded Labs Reviewed: Hgb:11.2, HCT:34.9, Alb:2.2, NA:131, K:3.0 Meds Noted: lasix, remeron, folic acid Skin: abrasion, maceration Additional Notes: Pt continues on same diet and liquid consistency, Intake improved to 50% most meals, Ensure Enlive BID, Ensure pudding TID in place. Continue to encourage intake. Will monitor weight, labs, skin, oral intake every 5 days.
--- NOTE | 2022-10-30 13:31 | PCPTNOTE ---
Patient refused treatment this session. Pt. states I have had enough. Educated pt. on the importance of therapy to improve mobility and strength however pt. continued to decline. Pt. up in recliner when therapy entered room. Pt. was given assist to reposition in chair for safety.
--- NOTE | 2022-10-30 13:34 | PCPTNOTE ---
On 10/30/22, the student, BAKARI Gifford, provided care and completed [facility] documentation on this patient. I have reviewed the student's documentation and agree with the findings.
--- NOTE | 2022-10-30 13:58 | WPDPN ---
Progress Note: A&P Assessment and Plan (1) COPD exacerbation: Code(s): J44.1 - Chronic obstructive pulmonary disease with (acute) exacerbation Status: Acute (2) Tachycardia: Code(s): R00.0 - Tachycardia, unspecified Status: Acute Plan Patient was evaluated for possible accidental ingestion of additional medications but feel that this is less likely. The patient seems to have a exacerbation of his COPD/pulmonary fibrosis. Will place patient on scheduled nebulizer treatments and start Solu-Medrol 60 mg q.8 hours. Will continue monitor. Will continue patient's home oxygen. The ER the patient was may be having some multifocal atrial tachycardia. However EKG demonstrated electronic ventricular pacemaker rhythm. At the time my evaluation patient's heart rate was controlled. No need for further evaluation. Will treat underlying lung pathology. Patient does not have a history of dementia listed but would not be surprised if he does not have some chronic memory loss. Will continue to monitor. Patient may benefit from neuro cognitive evaluation after acute illness has resolved. 10/17/2022 interval history: patient remains confused and unable to provide detail history, CT of head showed old cerebral vascular disese but not acte injury, patient contine to cough and lungs sounds congetest chest x-ray is concerning for pneumonia and mild pulmonary edema, will give patient lasix 20mg x1 IV and started patient on doxycycline and ceftriaxone for possible community acquired pneumonia, will monitor and have PT/OT evaluate the patient. 10/19/2022: History reviewed. Presents to the ER with weakness and concern for possible ingestion of 2 days worth of medication. Patient is a skilled nursing resident. Patient is a poor historian. Noted to be persistently tachycardic labs were unremarkable drops negative ABG with respiratory alkalosis chest x-ray with chronic stable interstitial infiltrates of the mid and lower lungs left greater than right has underlying COPD. Chronic respiratory failure on home oxygen 3 liter/minute. Rheumatoid arthritis on methotrexate diagnosis of pulmonary fibrosis Parkinson's disease RAMONA hyperlipidemia essential tremor history of DVT and PE in 2018 CKD stage 3 carotid artery disease status post endarterectomy on left. CT head showed old cerebral vascular disease with no acute abnormality. Chest x-ray concerning for pneumonia and pulmonary edema. Started on doxycycline on Septra Aczone for community-acquired pneumonia. PT OT to see. Possible COPD exacerbation or fibrosis flare up. And on methylprednisolone. Multifocal tachycardia in the ER paced rhythm currently controlled likely due to underlying lung pathology. Nonischemic cardiomyopathy. Hypokalemic replace and monitor magnesium is okay. Do not resuscitate. Will transition methylprednisolone to oral prednisone today. Labs in a.m. 10/20/2022:History reviewed. Presents to the ER with weakness and concern for possible ingestion of 2 days worth of medication. Patient is a skilled nursing resident. Patient is a poor historian. Noted to be persistently tachycardic labs were unremarkable drops negative ABG with respiratory alkalosis chest x-ray with chronic stable interstitial infiltrates of the mid and lower lungs left greater than right has underlying COPD. Chronic respiratory failure on home oxygen 3 liter/minute. Rheumatoid arthritis on methotrexate diagnosis of pulmonary fibrosis Parkinson's disease RAMONA hyperlipidemia essential tremor history of DVT and PE in 2018 CKD stage 3 carotid artery disease status post endarterectomy on left. CT head showed old cerebral vascular disease with no acute abnormality. Chest x-ray concerning for pneumonia and pulmonary edema. Started on doxycycline and ceftriaxone for community-acquired pneumonia. PT OT to see. Possible COPD exacerbation or fibrosis flare up. He had a right lower lobe pneumonia last month. Will have speech se
[2022-10-30] MEDS: POTASSIUM CHLORIDE 20 MEQ PACKET (FOR LIQUID) 40 MEQ PO (14:06)
[2022-10-30] MEDS: VANCOMYCIN 1,000 MG/NS 250 ML 1,000 MG/250 ML BAG 250 MG IVPB (14:07)
[2022-10-30] MEDS: ATORVASTATIN 10 MG TABLET PO (18:30)
[2022-10-30] MEDS: TAMSULOSIN HCL 0.4 MG CAPSULE PO (18:30)
[2022-10-30] MEDS: levoFLOXacin 750 MG/D5W 150 ML 750 MG/150 ML BAG 100 MG IVPB (18:30)
[2022-10-30] MEDS: MIRTAZAPINE 15 MG TABLET PO (20:17)
[2022-10-31] VITALS (30 sets, daily range): BP systolic 97–134; BP diastolic 39–85; PULSE 78–106; RESP 16–24; TEMP 36.2–37.1; O2SAT 90–96
[2022-10-31] MEDS: VANCOMYCIN 1,000 MG/NS 250 ML 1,000 MG/250 ML BAG 250 MG IVPB ×2 (00:13→12:41)
[2022-10-31] MEDS: LEVALBUTEROL NEB 1.25 MG/3 ML 0.63 MG INHALATION ×4 (02:16→20:44)
[2022-10-31] MEDS: IPRATROPIUM BR 0.02% INH SOLN 0.5 MG/2.5 ML VIAL INHALATION ×4 (02:17→20:44)
[2022-10-31] MEDS: PIPERACILLN/TAZ 3.375GM/NS50ML 3.375 GM/50 ML BAG IVPB ×4 (04:01→20:04)
[2022-10-31] MEDS: CENTRAL LINE FLUSH 10 ML IV PUSH ×3 (04:02→20:05)
[2022-10-31 05:57] LABS: Hematocrit 30.5 % (42.0-52.0); Mean Corpuscular HGB Conc 32.8 g/dl (32-36); Mean Corpuscular Hemoglobin 30.4 pg (26-34); Mean Corpuscular Volume 92.7 fl (80-100); Mean Platelet Volume 9.4 fl (7.4-10.4); Platelet Count Result 230 k/mm3 (150-375); Red Blood Count 3.29 M/mm3 (4.6-6.20); Red Cell Distribution Width 16.9 % (11.5-14.5); White Blood Count 11.4 K/mm3 (4.5-10.0)
[2022-10-31] MEDS: LEVOTHYROXINE SODIUM 25 MCG TABLET PO (05:57)
[2022-10-31 06:05] LABS: Anion Gap 1 mmol/L (8-16); Blood Urea Nitrogen 6 mg/dL (9-20); Calcium 7.2 mg/dL (8.4-10.2); Carbon Dioxide 33 mmol/L (22-30); Chloride 100 mmol/L (98-107); Estimated CRCL calculation 89 ml/min; Estimated Glomerular Filt Rate > 60; Glucose 80 mg/dL (65-110); Magnesium 1.6 mg/dL (1.6-2.3); Potassium 3.4 mmol/L (3.4-5.0); Sodium 134 mmol/L (137-145)
[2022-10-31] MEDS: FOLIC ACID 1 MG TABLET PO (07:58)
[2022-10-31] MEDS: guaiFENesin 12 HR 600 MG TABCR 1200 MG PO ×2 (07:58→20:03)
[2022-10-31] MEDS: TOLNAFTATE 1% POWDER 45 GM BTL 1 APPLIC TOPICAL ×2 (07:58→20:05)
[2022-10-31] MEDS: SACUBITRIL/VALSARTAN 12-13 MG TABLET 1 TAB PO ×2 (07:58→20:04)
[2022-10-31] MEDS: ASPIRIN 81 MG ENTERIC TABLET PO (08:01)
[2022-10-31] MEDS: POTASSIUM CHLORIDE 20 MEQ PACKET (FOR LIQUID) 40 MEQ PO (09:13)
--- NOTE | 2022-10-31 10:52 | PM.PNCARD ---
Progress Note: A&P Assessment and Plan (1) Pacemaker: Code(s): Z95.0 - Presence of cardiac pacemaker Status: Acute (2) Cardiomyopathy: Code(s): I42.9 - Cardiomyopathy, unspecified Status: Acute (3) COPD exacerbation: Code(s): J44.1 - Chronic obstructive pulmonary disease with (acute) exacerbation Status: Acute Plan Blood pressure has remained stable with resuming Entresto. Spironolactone and Coreg remain on hold. If BP remains stable today, would slowly reintroduce spironolactone then Coreg. No other specific cardiac recommendations to make at this time. Cardiology will sign off. Please call with questions. Subjective Date/time seen: 10/31/22 10:52 Interval history: Follow-up visit in this 81-year-old man with: History of cardiomyopathy also hospitalized with respiratory difficulty an element of chronic lung disease as well. Patient is resting on BiPAP in the room this morning appears to be comfortable does not offer any specific complaints. 10/31/2022: Feeling okay this morning. States his breathing is a little better today. No palpitations, chest pain, swelling. Review of Systems Review of Systems: 8 point ROS obtained. Negative, unless stated in HPI. All systems reviewed & are unremarkable except as noted in HPI and below Constitutional: Constitutional: Denies body ache(s) and Denies excessive sweating Eyes: Eyes: Denies blurry vision ENT: Reports Normal hearing present Cardiovascular: Cardiovascular: Reports chest pain, Denies pedal edema and Reports dyspnea Respiratory: Respiratory: Reports dyspnea Gastrointestinal: Gastrointestinal: Denies abdominal pain Genitourinary: Genitourinary: Denies hematuria and Denies urinary frequency Musculoskeletal: Musculoskeletal: Denies back pain Integumentary/Breasts: Skin/Breast: Denies erythema Neurologic: Reports Normal hearing present, Denies Abnormal speech present and Denies confusion Psychiatric: Psychiatric: Denies confusion Endocrine: Endocrine: Denies excessive sweating Hematologic/Lymphatic: Hematologic/Lymphatic: Denies easy bleeding Allergic/Immunologic: Allergic/Immunologic: Denies GI upset with certain foods Exam Narrative: Awake alert. Appears stated age Const: General: comfortable and no acute distress; No confusion Orientation/consciousness: No confusion Other: Elderly male. Hard of hearing. HENMT: Face/Nose/Sinus: Normal nares present Mouth: Yes moist mucous membranes Eyes: General: appearance normal, both eyes and all related structures Sclera: sclerae normal Neck: Neck: supple Carotids: no bruits Chest: Other: No reproducible chest wall pain to palpation. Pacemaker noted left upper chest Resp: Effort & Inspection: normal respiratory effort Auscultation: clear to auscultation bilaterally, rhonchi and diminished lung sounds Cardio: Rate: regular rate Rhythm: regular rhythm Heart sounds: no murmurs Other: Paced rhythm GI: Inspection: non-distended Auscultation: normal bowel sounds Skin: General skin exam: normal color Neuro: General: No confusion Cranial nerves: Yes Normal hearing present Speech: normal speech and No Abnormal speech present Sensory Exam: normal sensation Other: Sleeping, but awakens to voice and answers questions appropriately Extrem: General: normal to inspection and no edema Other: No peripheral edema Psych: Mental Status: mental status grossly normal Affect: normal affect Objective Data Vital Signs Vital Signs: Vital Signs - 24 hr 10/30/22 12:00 10/30/22 12:11 10/30/22 12:00 Temperature 36.6 C Pulse Rate 90 94 Respiratory Rate 22 H Blood Pressure 92/49 L Pulse Oximetry 92 98 Oxygen Delivery High Flow Therapy with Na Oxygen Flow Rate 45 Fraction of Inspired Oxygen 55 10/30/22 14:26 10/30/22 14:27 10/30/22 14:45 Temperature Pulse Rate 83 85 83 Respiratory Rate 20
[2022-10-31 11:10] LABS: Vancomycin Trough 18.8 ug/mL (10.0-20.0)
--- NOTE | 2022-10-31 12:45 | P.PN_ITS ---
Progress Note: A&P Assessment and Plan (1) COPD exacerbation: Code(s): J44.1 - Chronic obstructive pulmonary disease with (acute) exacerbation Status: Acute (2) Tachycardia: Code(s): R00.0 - Tachycardia, unspecified Status: Acute Plan Patient was evaluated for possible accidental ingestion of additional medications but feel that this is less likely. The patient seems to have a exacerbation of his COPD/pulmonary fibrosis. Will place patient on scheduled nebulizer treatments and start Solu-Medrol 60 mg q.8 hours. Will continue monitor. Will continue patient's home oxygen. The ER the patient was may be having some multifocal atrial tachycardia. However EKG demonstrated electronic ventricular pacemaker rhythm. At the time my evaluation patient's heart rate was controlled. No need for further evaluation. Will treat underlying lung pathology. Patient does not have a history of dementia listed but would not be surprised if he does not have some chronic memory loss. Will continue to monitor. Patient may benefit from neuro cognitive evaluation after acute illness has resolved. 10/17/2022 interval history: patient remains confused and unable to provide detail history, CT of head showed old cerebral vascular disese but not acte injury, patient contine to cough and lungs sounds congetest chest x-ray is concerning for pneumonia and mild pulmonary edema, will give patient lasix 20mg x1 IV and started patient on doxycycline and ceftriaxone for possible community acquired pneumonia, will monitor and have PT/OT evaluate the patient. 10/19/2022: History reviewed. Presents to the ER with weakness and concern for possible ingestion of 2 days worth of medication. Patient is a [place] [facility] resident. Patient is a poor historian. Noted to be persistently tachycardic labs were unremarkable drops negative ABG with respiratory alkalosis chest x-ray with chronic stable interstitial infiltrates of the mid and lower lungs left greater than right has underlying COPD. Chronic respiratory failure on home oxygen 3 liter/minute. Rheumatoid arthritis on methotrexate diagnosis of pulmonary fibrosis Parkinson's disease RAMONA hyperlipidemia essential tremor history of DVT and PE in 2018 CKD stage 3 carotid artery disease status post endarterectomy on left. CT head showed old cerebral vascular disease with no acute abnormality. Chest x-ray concerning for pneumonia and pulmonary edema. Started on doxycycline on Septra Aczone for community-acquired pneumonia. PT OT to see. Possible COPD exacerbation or fibrosis flare up. And on methylprednisolone. Multifocal tachycardia in the ER paced rhythm currently controlled likely due to underlying lung pathology. Nonischemic cardiomyopathy. Hypokalemic replace and monitor magnesium is okay. Do not resuscitate. Will transition methylprednisolone to oral prednisone today. Labs in a.m. 10/20/2022:History reviewed. Presents to the ER with weakness and concern for possible ingestion of 2 days worth of medication. Patient is a [place] [facility] resident. Patient is a poor historian. Noted to be persistently tachycardic labs were unremarkable drops negative ABG with respiratory alkalosis chest x-ray with chronic stable interstitial infiltrates of the mid and lower lungs left greater than right has underlying COPD. Chronic respiratory failure on home oxygen 3 liter/minute. Rheumatoid arthritis on methotrexate diagnosis of pulmonary fibrosis Parkinson's disease RAMONA hyperlipidemia essential tremor history of DVT and PE in 2018 CKD stage 3 carotid artery disease status post endarterectomy on left. CT head showed old cerebral vascular disease with no acute abnormality. Chest x-ray concerning for pneumonia
[2022-10-31 17:06] LABS: Alpha-1-Antitrypsin, QN 223 mg/dL (83-199)
[2022-10-31] MEDS: ATORVASTATIN 10 MG TABLET PO (17:26)
[2022-10-31] MEDS: TAMSULOSIN HCL 0.4 MG CAPSULE PO (17:26)
[2022-10-31] MEDS: levoFLOXacin 750 MG/D5W 150 ML 750 MG/150 ML BAG 100 MG IVPB (17:27)
[2022-10-31] MEDS: MIRTAZAPINE 15 MG TABLET PO (20:03)
[2022-11-01] VITALS (23 sets, daily range): BP systolic 93–134; BP diastolic 49–97; PULSE 81–103; RESP 18–26; TEMP 36.4–37.6; O2SAT 91–96
[2022-11-01] MEDS: IPRATROPIUM BR 0.02% INH SOLN 0.5 MG/2.5 ML VIAL INHALATION ×4 (02:47→20:13)
[2022-11-01] MEDS: LEVALBUTEROL NEB 1.25 MG/3 ML 0.63 MG INHALATION ×4 (02:47→20:13)
[2022-11-01] MEDS: LEVOTHYROXINE SODIUM 25 MCG TABLET PO (05:42)
[2022-11-01] MEDS: CENTRAL LINE FLUSH 10 ML IV PUSH ×3 (05:42→20:34)
[2022-11-01 06:01] LABS: Hematocrit 30.2 % (42.0-52.0); Hemoglobin 10.1 g/dL (14.0-18.0); Mean Corpuscular HGB Conc 33.4 g/dl (32-36); Mean Corpuscular Hemoglobin 30.8 pg (26-34); Mean Corpuscular Volume 92.1 fl (80-100); Mean Platelet Volume 9.8 fl (7.4-10.4); Platelet Count Result 233 k/mm3 (150-375); Red Blood Count 3.28 M/mm3 (4.6-6.20); Red Cell Distribution Width 16.9 % (11.5-14.5); White Blood Count 12.8 K/mm3 (4.5-10.0)
[2022-11-01 06:30] LABS: Anion Gap 4 mmol/L (8-16); Blood Urea Nitrogen 13 mg/dL (9-20); Calcium 7.2 mg/dL (8.4-10.2); Carbon Dioxide 31 mmol/L (22-30); Chloride 100 mmol/L (98-107); Estimated CRCL calculation 38 ml/min; Estimated Glomerular Filt Rate 45; Glucose 84 mg/dL (65-110); Magnesium 1.6 mg/dL (1.6-2.3); Potassium 3.7 mmol/L (3.4-5.0); Sodium 135 mmol/L (137-145)
[2022-11-01] MEDS: SACUBITRIL/VALSARTAN 12-13 MG TABLET 1 TAB PO ×2 (11:52→20:33)
[2022-11-01] MEDS: FOLIC ACID 1 MG TABLET PO (11:52)
[2022-11-01] MEDS: guaiFENesin 12 HR 600 MG TABCR 1200 MG PO ×2 (11:52→20:34)
[2022-11-01] MEDS: ASPIRIN 81 MG ENTERIC TABLET PO (11:52)
[2022-11-01] MEDS: TOLNAFTATE 1% POWDER 45 GM BTL 1 APPLIC TOPICAL ×2 (11:53→20:33)
--- NOTE | 2022-11-01 15:56 | PCPTNOTE ---
Spoke with current hospitalist Dr. Villar regarding pt poor participation in skilled PT/refusing therapy. Per hospitalist, OK to DC therapy orders at this time.
[2022-11-01] MEDS: TAMSULOSIN HCL 0.4 MG CAPSULE PO (17:55)
[2022-11-01] MEDS: ATORVASTATIN 10 MG TABLET PO (17:55)
[2022-11-01] MEDS: MIRTAZAPINE 15 MG TABLET PO (20:34)
[2022-11-02] VITALS (21 sets, daily range): BP systolic 94–117; BP diastolic 47–70; PULSE 72–100; RESP 18–28; TEMP 36–36.8; O2SAT 92–99
[2022-11-02] MEDS: LEVOTHYROXINE SODIUM 25 MCG TABLET PO (06:10)
[2022-11-02] MEDS: CENTRAL LINE FLUSH 10 ML IV PUSH ×3 (06:10→20:27)
[2022-11-02 06:14] LABS: Hematocrit 29.3 % (42.0-52.0); Hemoglobin 9.6 g/dL (14.0-18.0); Mean Corpuscular HGB Conc 32.8 g/dl (32-36); Mean Corpuscular Hemoglobin 29.9 pg (26-34); Mean Corpuscular Volume 91.3 fl (80-100); Mean Platelet Volume 9.5 fl (7.4-10.4); Platelet Count Result 230 k/mm3 (150-375); Red Blood Count 3.21 M/mm3 (4.6-6.20); Red Cell Distribution Width 17.2 % (11.5-14.5); White Blood Count 10.5 K/mm3 (4.5-10.0)
[2022-11-02 06:24] LABS: Anion Gap 3 mmol/L (8-16); Blood Urea Nitrogen 19 mg/dL (9-20); Calcium 7.1 mg/dL (8.4-10.2); Carbon Dioxide 31 mmol/L (22-30); Chloride 101 mmol/L (98-107); Estimated CRCL calculation 20 ml/min; Estimated Glomerular Filt Rate 23; Glucose 74 mg/dL (65-110); Magnesium 1.6 mg/dL (1.6-2.3); Potassium 3.9 mmol/L (3.4-5.0); Sodium 135 mmol/L (137-145)
[2022-11-02] MEDS: LEVALBUTEROL NEB 1.25 MG/3 ML 0.63 MG INHALATION ×3 (07:40→20:20)
[2022-11-02] MEDS: IPRATROPIUM BR 0.02% INH SOLN 0.5 MG/2.5 ML VIAL INHALATION ×3 (07:40→20:20)
[2022-11-02] MEDS: FOLIC ACID 1 MG TABLET PO (08:28)
[2022-11-02] MEDS: ASPIRIN 81 MG ENTERIC TABLET PO (08:28)
[2022-11-02] MEDS: SACUBITRIL/VALSARTAN 12-13 MG TABLET 1 TAB PO ×2 (08:28→20:59)
[2022-11-02] MEDS: TOLNAFTATE 1% POWDER 45 GM BTL 1 APPLIC TOPICAL ×2 (08:28→20:59)
[2022-11-02] MEDS: guaiFENesin 12 HR 600 MG TABCR 1200 MG PO ×2 (08:28→20:59)
--- NOTE | 2022-11-02 11:13 | PCNFU ---
Nutrition Follow-Up Complete: Inadequate Oral intake as related to COPD as evidenced by poor po intake reported. Goal:Meet estimated nutritional needs Pt current nutrition is Heart healthy, level 5, level 3 liquids. Nutrition recommendation: change Ensure to compact size and increase to TID Last recorded weight is 70 kg. Bowel Motility: +BM 11/02 Labs Reviewed: Hgb:9.6, HCT:29.3, NA:135, GFR:23, Cr:2.7 Meds Noted: remeron, lasix Skin: abrasion, maceration noted Additional Notes: pt continues on same diet, intake decreased to 25% of meals. Pt tired during visit, nursing reports he has signed hospice papers. Continue to encourage po intake of meals and supplements. Will change Ensure to compact and increase to TID. Will montior weight, labs, skin, oral intake every 7 days.
[2022-11-02] MEDS: ATORVASTATIN 10 MG TABLET PO (17:45)
[2022-11-02] MEDS: TAMSULOSIN HCL 0.4 MG CAPSULE PO (17:45)
[2022-11-02] MEDS: MIRTAZAPINE 15 MG TABLET PO (20:59)
[2022-11-03] VITALS (11 sets, daily range): BP systolic 101–117; BP diastolic 49–62; PULSE 75–90; RESP 18–24; TEMP 36.3–36.6; O2SAT 93–100
[2022-11-03] MEDS: LEVALBUTEROL NEB 1.25 MG/3 ML 0.63 MG INHALATION ×3 (02:00→14:22)
[2022-11-03] MEDS: IPRATROPIUM BR 0.02% INH SOLN 0.5 MG/2.5 ML VIAL INHALATION ×3 (02:00→14:22)
[2022-11-03] MEDS: CENTRAL LINE FLUSH 10 ML IV PUSH (05:57)
[2022-11-03 06:18] LABS: Hematocrit 29.8 % (42.0-52.0); Hemoglobin 9.9 g/dL (14.0-18.0); Mean Corpuscular HGB Conc 33.2 g/dl (32-36); Mean Corpuscular Hemoglobin 30.7 pg (26-34); Mean Corpuscular Volume 92.5 fl (80-100); Mean Platelet Volume 9.6 fl (7.4-10.4); Platelet Count Result 250 k/mm3 (150-375); Red Blood Count 3.22 M/mm3 (4.6-6.20); Red Cell Distribution Width 17.4 % (11.5-14.5); White Blood Count 10.5 K/mm3 (4.5-10.0)
[2022-11-03 06:29] LABS: Anion Gap 3 mmol/L (8-16); Blood Urea Nitrogen 23 mg/dL (9-20); Calcium 6.9 mg/dL (8.4-10.2); Carbon Dioxide 29 mmol/L (22-30); Chloride 103 mmol/L (98-107); Estimated CRCL calculation 17 ml/min; Estimated Glomerular Filt Rate 18; Glucose 87 mg/dL (65-110); Magnesium 1.7 mg/dL (1.6-2.3); Potassium 3.6 mmol/L (3.4-5.0); Sodium 135 mmol/L (137-145)
[2022-11-03] MEDS: TOLNAFTATE 1% POWDER 45 GM BTL 1 APPLIC TOPICAL (09:33)
[2022-11-03] MEDS: SACUBITRIL/VALSARTAN 12-13 MG TABLET 1 TAB PO (09:34)
[2022-11-03] MEDS: guaiFENesin 12 HR 600 MG TABCR 1200 MG PO (09:34)
[2022-11-03] MEDS: ASPIRIN 81 MG ENTERIC TABLET PO (09:34)
[2022-11-03] MEDS: FOLIC ACID 1 MG TABLET PO (09:34)
[2022-11-03 13:17] LABS: EDCOVIDSCREEN Negative (Negative)
--- NOTE | 2022-11-03 13:19 | PM.DS ---
DS: Admitting Diagnosis Discharge Date 11/03/2022 Admitting Diagnosis shortness f breath DS: Discharge Diagnosis Discharge Diagnosis (1) COPD exacerbation: Code(s): J44.1 - Chronic obstructive pulmonary disease with (acute) exacerbation Status: Acute (2) Tachycardia: Code(s): R00.0 - Tachycardia, unspecified Status: Acute DS: Summary Hospital Course Hospital Course: Presents to the ER with weakness and concern for possible ingestion of 2 days worth of medication.? Patient is a group home resident.? Patient is a poor historian.? Noted to be persistently tachycardic labs were unremarkable drops negative ABG with respiratory alkalosis chest x-ray with chronic stable interstitial infiltrates of the mid and lower lungs left greater than right has underlying COPD.? Chronic respiratory failure on home oxygen 3 liter/minute.? Rheumatoid arthritis on methotrexate diagnosis of pulmonary fibrosis Parkinson's disease RAMONA hyperlipidemia essential tremor history of DVT and PE in 2018 CKD stage 3 carotid artery disease status post endarterectomy on left.? CT head showed old cerebral vascular disease with no acute abnormality.? Chest x-ray concerning for pneumonia and pulmonary edema.? Started on doxycycline and ceftriaxone for community-acquired pneumonia.? He was also treated for possible COPD exacerbation or fibrosis flare up.? He had a right lower lobe pneumonia last month.? His speech evaluated and had cj aspiration to thin liquid.? This is been switched to thickened liquids.? Methylprednisolone switched to oral prednisone. Multifocal tachycardia in the ER paced rhythm currently controlled likely due to underlying lung pathology.? Nonischemic cardiomyopathy noted.? Hypokalemic replace and monitor magnesium is okay.? Do not resuscitate.? Labs reviewed.? Chest x-ray with improvement.? Switched antibiotics to Augmentin which will be continued. Patient had however intermittently hypoxic needing BiPAP support. Pulmonary was consulted. Cardiology was consulted for cardiomyopathy and was placed on Coreg and Entresto. Is also started on IV diuretics. D-dimer came back elevated. CT chest was done which was negative for PE however there was concern of aspiration pneumonia. He was started on broad-spectrum antibiotics. He required Vapotherm for his underlying hypoxia. He also developed renal failure during this course. Further goals of care discussion with family and patient leading to hospice enrollment. He is going to group home with hospice care and arrangements were made. Time Spent with Patient Time attestation: Total time spent providing and/or coordinating discharge services: 35 minutes Exam Narrative: Patient is comfortable, NAD HEENT: eyes are clear and none icteric LUNGS: Normal respiratory effort; coarse breath soound ABD: Not distended Lower extremities: no edema SKIN: nonjaundiced Neuro: grossly intact. DS: Data Data Completed and Pending Completed studies during hospitalization: Exam Type: ? ? CA echo doppler color flow Study Info Indications ?? ? - shortness of breath Complete two-dimensional, color flow and Doppler transthoracic echocardiogram is performed. Account #: ? ? [id number] Summary ? 1. Complete two-dimensional, color flow and Doppler transthoracic echocardiogram is performed. ? 2. Left ventricular chamber dimension is mildly enlarged. ? 3. Left ventricular systolic function is severely reduced, estimated at 25-30%. ? 4. There is mildly increased left ventricular wall thickness. ? 5. The left ventricular diastolic function is grade I diastolic dysfunction. ? 6. The mid inferoseptal, and mid anteroseptal are akinetic. ? 7. The apex, inferior wall, anterior wall, anterolateral wall, inferolateral wall, basal inferoseptal, and basal anteroseptal are hypokinetic. ? 8. Left atrial chamber dimension is mildly enlarged. ? 9. There is mild mitral valve regurgitation. ? 10. Mild pul
== END 2022-11-03 14:44 | disposition hospice, home (50) | DRG 193 ==
LOC: ANHED 16:30 → ANH3MED 16:57 → ANHIMU 10-29 13:48 → ANH3MED 11-06 09:00 → ANHIMU 11-06 09:00
PROVIDERS: Family Medicine; Internal Medicine Pulmonary Disease; Admitting Provider Internal Medicine; Emergency Provider Emergency Medicine; PCP Family Medicine; Visit Provider Internal Medicine
DX: J18.9 Pneumonia, unspecified organism (principal); I50.21 Acute systolic (congestive) heart failure; J44.1 Chronic obstructive pulmonary disease with (acute) exacerbation; I13.0 Hypertensive heart and chronic kidney disease with heart failure and stage 1 through stage 4 chronic kidney disease, or unspecified chronic kidney disease; I42.9 Cardiomyopathy, unspecified; J96.11 Chronic respiratory failure with hypoxia; J44.0 Chronic obstructive pulmonary disease with (acute) lower respiratory infection; J84.10 Pulmonary fibrosis, unspecified; J69.0 Pneumonitis due to inhalation of food and vomit; N18.30 Chronic kidney disease, stage 3 unspecified; R00.0 Tachycardia, unspecified; Z20.822 Contact with and (suspected) exposure to COVID-19; I25.10 Atherosclerotic heart disease of native coronary artery without angina pectoris; G47.33 Obstructive sleep apnea (adult) (pediatric); G20 Parkinson's disease; M06.9 Rheumatoid arthritis, unspecified; E78.5 Hyperlipidemia, unspecified; I48.91 Unspecified atrial fibrillation; E87.6 Hypokalemia; D64.9 Anemia, unspecified; N40.0 Benign prostatic hyperplasia without lower urinary tract symptoms; Z66 Do not resuscitate; Z99.81 Dependence on supplemental oxygen; Z85.828 Personal history of other malignant neoplasm of skin; Z86.718 Personal history of other venous thrombosis and embolism; Z86.711 Personal history of pulmonary embolism; Z95.0 Presence of cardiac pacemaker; Z90.49 Acquired absence of other specified parts of digestive tract; Z87.891 Personal history of nicotine dependence; Z79.82 Long term (current) use of aspirin
CPT/HCPCS: 36415; 36569; 36600; 70450; 71045; 71275; 80048; 80053; 80202; 81003; 82103; 82104; 82375; 82565; 82805; 83050; 83690; 83735; 83880; 84484; 85025; 85027; 85380; 85610; 85730; 87040; 87081; 87426; 92610; 93005; 93306; 93308; 94002; 94003; 94640; 94667; 94668; 94669; 96365; 96366; 96367; 96374; 96375; 96376; 97110; 97161; 97165; 97530; 97535; 99285; A9270; C1751; C9803; G0378; J0696; J1940; J1956; J2543; J2930; J3370; J7050; J7512; Q9967